=== PATIENT | female | born 1940 | race Caucasian/White ===

== ENCOUNTER → 2017-08-11 | Outpatient (CLI) | payer MEDICARE ==
[~2017-08-11] MED LIST: ALPR0.5T3; ASP81CT; ASPI-892 PO; ATEN100T45; ATEN25TA; ATN50T; ATOR20TA49 PO; ATOR40TA; C250T; CARV25TA PO; CARVEDILOL; CATHETER FLUSH 10 ML SYR IV PRN; CHLO25TA2 PO; CHOL10003 PO; CHOL200018 PO; CITA40TA19; CLN.2T; CLON-378 PO; CLOP75TA PO; CLPD75T; CTLP20T; ERGO400C; ESCT10T; FRSM40T PO; FURO40TA4; GARL1500 PO; HYDR1TAB PO; KCL10CCR; KCL20TCR; KLOR; LISI-552 PO; LISI10TA PO; LISI20TA; LOVA40TA2 PO; LSNP20T; LVST20T; MINOXIDIL; NF-MINO10T PO; NITRO; NTG SL; OMG1KC PO; POTA10CA43 PO; REGADENOSON 0.4 MG/5 ML SYR (LEXISCAN) IV ONE; [UNRECOGNIZED DRUG - OTHER]
[2017-08-11 08:02] VITALS: BP 231/102
--- NOTE | 2017-08-11 11:44 | STRESS TEST ---
DATE OF SERVICE: 08/11/2017 NUCLEAR MYOVIEW REPORT REFERRING PHYSICIAN: Dr. Jacobs. SUMMARY: The patient was injected with 10.40 mCi of technetium-99 Myoview and the resting images were obtained. With peak stress level, a 32.1 mCi of technetium-99 Myoview were injected and the stress images were acquired, the resting and stress images were reviewed and compared in the short axis, horizontal long axis, and vertical long axis views. Review of the images showed extracardiac attenuation with ischemia involving the basal to mid inferior wall and basal to mid anterior wall. SSS is 9, SDS 5, TID value is 0.96. On the gated images, the left ventricle appeared to be prominent with diffuse left ventricular hypokinesia, more pronounced at the inferior wall. Calculated ejection fraction of 39%. CONCLUSION: 1. Extracardiac attenuation with reversible ischemia involving the basal to mid inferior wall and basal to mid anterior wall. 2. Prominent left ventricle with mild diffuse left ventricular hypokinesia, more pronounced at the inferior wall. Calculated ejection fraction of 39%. Job ID: [id number] DocumentID: [id number] Dictated Date: 08/11/2017 10:17:12 Dope Edger Date: 08/11/2017 11:43:25 Dictated By: PRERNA RAPP MD
== END ==
LOC: CARD 06:33
PROVIDERS: ATTEND Internal Medicine
DX: I25.10 Atherosclerotic heart disease of native coronary artery without angina pectoris (principal); I10 Essential (primary) hypertension; R07.9 Chest pain, unspecified
CPT/HCPCS: 78452; 93017

== ENCOUNTER 2017-08-22 08:48 | Day surgery (SDC) | payer MEDICARE ==
[~2017-08-22] VITALS: Ht 152.4 cm; Wt 63.5 kg
[2017-08-22] VITALS (9 sets, daily range): BP systolic 143–181; BP diastolic 78–105
[~2017-08-22 08:48] MED LIST changes: -CATHETER FLUSH 10 ML SYR IV PRN; -REGADENOSON 0.4 MG/5 ML SYR (LEXISCAN) IV ONE
--- OUTSIDE RECORDS SUMMARY | 2017-08-22 08:52 | XMS REPORT | Continuity of Care Document ---
Author Author [facility] Organization [facility] Address Unknown Phone Unavailable Allergies Active Description Code Type Severity Reaction Onset Reported/Identified Relationship to Patient Clinical Status Yes NKANo Known Allergies NKA Miscellaneous Allergy Unknown N/A 08/29/2006 Medications There is no data. Problems Date Dx Coded Attending Type Code Diagnosis Diagnosed By 12/22/2009 Ot 442.3 12/22/2009 Ot 782.2 09/16/2010 Ot 729.5 PAIN IN LIMB 01/15/2011 Ot 272.4 HYPERLIPIDEMIA NEC/NOS 01/15/2011 Ot 276.8 HYPOPOTASSEMIA 01/15/2011 Ot 401.9 HYPERTENSION NOS 01/15/2011 Ot 414.00 CORON ATHEROSCLER NOS TYPE VESSEL, NATIV 01/15/2011 Ot 441.4 ABDOM AORTIC ANEURYSM 01/15/2011 Ot 780.57 UNSPECIFIED SLEEP APNEA 01/15/2011 Ot V45.81 AORTOCORONARY BYPASS 01/15/2011 Ot V58.63 LONG-TERM( CURRENT)USE OF ANTIPLATELET/AN 01/15/2011 Ot V58.66 LONG-TERM ( CURRENT) USE OF ASPIRIN 01/15/2011 Ot V58.69 OTH MED,LT, CURRENT USE 06/02/2011 Ot 272.4 HYPERLIPIDEMIA NEC/NOS 06/02/2011 Ot 401.9 HYPERTENSION NOS 06/02/2011 Ot 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 06/02/2011 Ot 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 06/02/2011 Ot 786.05 SHORTNESS OF BREATH 06/02/2011 Ot 786.50 CHEST PAIN NOS 06/02/2011 Ot V45.81 AORTOCORONARY BYPASS 06/02/2011 Ot V45.82 PERCUTANEOUS TRANSLUM CORON ANGIOPLASTY 07/25/2011 Ot V45.82 PERCUTANEOUS TRANSLUM CORON ANGIOPLASTY 07/25/2011 Ot V57.89 REHABILITATION PROC NEC 06/09/2015 Ot 272.4 06/09/2015 Ot 414.01 06/09/2015 Ot V58.69 06/09/2015 Ot 272.4 06/09/2015 Ot 414.01 06/09/2015 Ot V58.69 06/09/2015 Ot 414.01 06/09/2015 Ot 786.09 06/09/2015 Ot V58.63 06/09/2015 Ot V58.66 06/09/2015 Ot V58.69 06/09/2015 Ot 276.8 06/09/2015 Ot 401.9 06/09/2015 Ot 414.01 06/09/2015 Ot 401.9 06/09/2015 Ot V58.69 06/09/2015 Ot 272.4 06/09/2015 Ot 414.00 06/09/2015 Ot V58.69 06/09/2015 Ot 441.4 06/10/2015 JOSE MANUEL SANCHEZ MD Ot I10 ESSENTIAL (PRIMARY) HYPERTENSION 06/10/2015 JOSE MANUEL SANCHEZ MD Ot 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 06/10/2015 JOSE MANUEL SANCHEZ MD Ot I25.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 06/10/2015 JOSE MANUEL SANCHEZ MD Ot R07.9 CHEST PAIN, UNSPECIFIED 06/10/2015 JOSE MANUEL SANCHEZ MD Ot 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 06/10/2015 JOSE MANUEL SANCHEZ MD Ot Z87.891 PERSONAL HISTORY OF NICOTINE DEPENDENCE 06/10/2015 JOSE MANUEL SANCHEZ MD Ot Z95.1 PRESENCE OF AORTOCORONARY BYPASS GRAFT 06/10/2015 JOSE MANUEL SANCHEZ MD Ot Z98.61 CORONARY ANGIOPLASTY STATUS 08/13/2015 Ot 272.4 08/13/2015 Ot 414.01 08/13/2015 Ot V58.69 08/13/2015 Ot 414.01 08/13/2015 Ot 786.09 08/13/2015 Ot V58.63 08/13/2015 Ot V58.66 08/13/2015 Ot V58.69 08/13/2015 Ot 276.8 08/13/2015 Ot 401.9 08/13/2015 Ot 414.01 08/13/2015 Ot 401.9 08/13/2015 Ot V58.69 08/13/2015 Ot 272.4 08/13/2015 Ot 414.00 08/13/2015 Ot V58.69 08/13/2015 Ot 441.4 11/11/2015 Ot 272.4 HYPERLIPIDEMIA NEC/NOS 11/11/2015 Ot 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 11/11/2015 Ot V58.69 OTH MED,LT, CURRENT USE 11/11/2015 Ot 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 11/11/2015 Ot 786.09 RESPIRATORY ABNORM NEC 11/11/2015 Ot V58.63 LONG-TERM( CURRENT)USE OF ANTIPLATELET/AN 11/11/2015 Ot V58.66 LONG-TERM ( CURRENT) USE OF ASPIRIN 11/11/2015 Ot V58.69 OTH MED,LT, CURRENT USE 11/11/2015 Ot 276.8 HYPOPOTASSEMIA 11/11/2015 Ot 401.9 HYPERTENSION NOS 11/11/2015 Ot 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 11/11/2015 Ot 401.9 HYPERTENSION NOS 11/11/2015 Ot V58.69 OTH MED,LT, CURRENT USE 11/11/2015 Ot 272.4 HYPERLIPIDEMIA NEC/NOS 11/11/2015 Ot 414.00 CORON ATHEROSCLER NOS TYPE VESSEL, NATIV 11/11/2015 Ot V58.69 OTH MED,LT, CURRENT USE 11/11/2015 Ot 441.4 ABDOM AORTIC ANEURYSM 08/14/2017 LIAN WAN DO Ot I10 ESSENTIAL (PRIMARY) HYPERTENSION 08/14/2017 LAIN WAN DO Ot 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 Results There is no data. Encounters ACCT No. Visit Date/Time Discharge Status Pt. Type Provider Facility Loc./Unit Complaint [id number] 08/11/2017 06:33:00 08/11/2017 23:59:59 CLS Outpatient LIAN WAN DO [facility] CHEST PAIN, HYPERTENSION [id number] 06/08/2015 21:54:00 06/10/2015 11:45:00 DIS Outpatient LAURA CARTER, JOSE MANUEL [facility] [id number] 11/23/2011 07:42:00 Document Registration [id number] 07/25/2011 09:00:00 Document Registration [id number] 06/08/2011 08:08:00 Document Registration [id number] 06/01/2011 12:10:00 Document Registration [id number] 02/04/2011 07:55:00 Document Registration [id number] 01/27/2011 10:58:00 Document Registration [id number] 01/25/2011 08:52:00 Document Registration [id number] 01/14/2011 19:40:00 Document Registration [id number] 09/16/2010 07:41:00 Document Registration [id number] 07/27/2010 07:51:00 Document Registration [id number] 02/04/2010 08:17:00 Document Registration [id number] 12/22/2009 10:28:00 Document Registration
[2017-08-22] MEDS ORDERED: HEParin (CATH LAB) 2,000 ML IV ONE (09:00)
[2017-08-22] MEDS ORDERED: NS IV 1000 ML 1,000 ML ONE (09:00)
[2017-08-22] MEDS ORDERED: NS IV 1000 ML 1,000 ML IV SCH ×2 (09:04→12:06)
[2017-08-22 09:28] LABS: HEMOGLOBIN 15.6 G/DL (11.5-16.0); MEAN PLATELET VOLUME 11.6 FL (7.4-10.4); RED BLOOD COUNT 5.55 10^6/uL (4.35-5.85); RED CELL DISTRIBUTION WIDTH 14.1 % (10.0-14.5); WHITE BLOOD COUNT 9.1 10^3/uL (4.3-11.0)
[2017-08-22] MEDS ORDERED: ATOR10TA66 PO (09:40)
[2017-08-22] MEDS ORDERED: AMLO5TAB2 PO (09:40)
[2017-08-22] MEDS ORDERED: NF-MINO10T PO (09:40)
[2017-08-22 09:44] LABS: PROTHROMBIN TIME PATIENT 13.3 SEC (12.2-14.7)
[2017-08-22 09:48] LABS: ALANINE AMINOTRANSFERASE 11 U/L (0-55); ALBUMIN 4.6 GM/DL (3.2-4.5); ALKALINE PHOSPHATASE 97 U/L (40-136); BILIRUBIN,TOTAL 0.8 MG/DL (0.1-1.0); BUN/CREATININE RATIO 21; CALCIUM 9.7 MG/DL (8.5-10.1); CARBON DIOXIDE 24 MMOL/L (21-32); CHLORIDE 106 MMOL/L (98-107); CHOLESTEROL 190 MG/DL (< 200); CREATININE SERUM 0.73 MG/DL (0.60-1.30); GFR ESTIMATED > 60; GLUCOSE 103 MG/DL (70-105); HDL CHOLESTEROL 45 MG/DL (40-60); POTASSIUM 4.1 MMOL/L (3.6-5.0); SODIUM 140 MMOL/L (135-145); TOTAL PROTEIN 8.2 GM/DL (6.4-8.2); TRIGLYCERIDES 193 MG/DL (<150); VLDL CHOLESTEROL 39 MG/DL (5-40)
[2017-08-22] MEDS ORDERED: MIDAZOLAM 5 MG/5 ML (VERSED) VIAL ONE (10:42)
[2017-08-22] MEDS ORDERED: fentaNYL INJECTION 100 MCG/2 ML AMP ONE (10:42)
[2017-08-22] MEDS ORDERED: diphenhydrAMINE 50 MG/ML INJ (BENADRYL) ONE (10:42)
[2017-08-22] MEDS ORDERED: LIDOCAINE 1% INJ 50 ML (XYLOCAINE) VIAL ONE (10:44)
--- NOTE | 2017-08-22 11:26 | Cardiac Procedure Note-CS/ASA ---
Pre-Procedure Note Pre-Op Procedure Note H&P Reviewed The H&P was reviewed, patient examined and no changes noted. Date H&P Reviewed: Aug 22, 2017 Time H&P Reviewed: 11:25 Conscious Sedation Pre-Proced Time Reviewed: : ASA Class: 3 Airway Mallampati Classification: (ruby appropriate class) I. II. III, IV Lungs Heart ASA score ASA 1: a normal healthy patient ASA 2: a patient with a mild systemic disease (mid diabetes, controlled hypertension, obesity ASA 3: a patient with a severe systemic disease that limits activity (angina , COPD, prior Myocardial infarction) ASA 4: a patient with an incapacitating disease that is a constant threat to life (CHF, renal failure) ASA 5: a moribund patient not expected to survive 24 hrs. (ruptured aneurysm) ASA 6: a declared brain patient whose organs are being harvested. For emergent operations, add the letter E after the classification Grade 2 Sedation Plan: Analgesia, Amnesia, Plan communicated to team members, Discussed options with patient/fam, Discussed risks with patient/fam Note The patient is an appropriate candidate to undergo the planned procedure, sedation, and anesthesia. The patient immediately re-assessed prior to indication. AMARI FOSTER MD FACP FAC CCDS Aug 22, 2017 11:26
--- NOTE | 2017-08-22 12:08 | Discharge Inst-Cardiology ---
Discharge Inst-Cardiac Discharge Medications Continued Medications: Amlodipine Besylate (Amlodipine Besylate) 5 Mg Tablet 5 MG PO DAILY, TAB Aspirin (Low Dose Aspirin) 81 Mg Tablet.dr 81 MG PO HS Atorvastatin Calcium (Atorvastatin Calcium) 10 Mg Tablet 10 MG PO DAILY, TAB Lisinopril (Lisinopril) 20 Mg Tablet 20 MG PO HS Minoxidil (Minoxidil) 10 Mg Tab 10 MG PO BID, TAB Orders-Post D/C & Referrals Pneu Vac Indicated: Yes AMARI FOSTER MD FACP FACC CCDS Aug 22, 2017 12:08
--- NOTE | 2017-08-22 12:08 | Discharge Inst-Post CATH ---
Discharge Inst-CATH Post Cardiac Cath D/C Inst Follow Up/Plan F/u with Dr Macedo in 1-2 weeks CARDIAC CATH DISCHARGE INSTRUCTIONS *Hold Metformin for 48 hours post heart cath. ACTIVITY * Go Home directly and rest. * Limit activity of the leg (or wrist if it was used) for 7 days including aerobics, swimming, jogging, bicycling, etc. * Restrict stair-climbing for 7 days if possible, if not, climb up with your non -cath leg, then bring together on the same step. * Avoid lifting, pushing, pulling or excessive movement of the affected extremity for 7 days. * Customary sexual activity may be resumed after 2 days-use caution not to use a position that strains or causes pain to the affected extremity. * No driving for 24 hours. * NO SMOKING. * Avoid straining for bowel movements for 7 days. * Gentle walking on level ground is allowed. * Returning to work will depend on the type of procedure and the results. Your doctor will discuss this with you. CALL YOUR DOCTOR FOR ANY OF THE FOLLOWING: *If bleeding from the puncture site occurs- Apply gentle pressure to site with clean cloth and call your doctor or EMS. * If a knot or lump forms under the skin, increases in size, or causes pain. * If bruising appears to be worsening or moving further down your leg instead of disappearing. * Temperature above 101 F. CARE OF YOUR GROIN INCISION; * Bruising or purple discoloration of the skin near the puncture site is common. * You may shower only, no bathtub bathing for 5 days. Be careful to avoid slipping as your leg may feel stiff. * If a closure device was used on your femoral artery, please see the attached guide regarding care of the device and your leg. * REMOVE the dressing from your groin the next day after your procedure in the shower. CARE OF YOUR WRIST INCISION; * Bruising or purple discoloration of the skin near the puncture site is common. * You may shower. * DO NOT submerge wrist. * Remove dressing in 24 hours. AMARI MACEDO MD [facility] CCDS Aug 22, 2017 12:08
[2017-08-22] MEDS ORDERED: PATIENT MAY USE OWN MEDS, ALL PO SCH (12:15)
--- NOTE | 2017-08-22 12:59 | CARDIAC CATHETERIZATION ---
DATE OF SERVICE: 08/22/2017 CARDIAC CATHETERIZATION REPORT HISTORY: The patient is a 77-year-old lady with a history of coronary artery bypass surgery, who has had a recent stress test, which was reported as being abnormal. Cardiac catheterization was planned today. PROCEDURE: We brought her to the cardiac catheterization laboratory in a fasting state. Right groin was prepped and draped in usual sterile fashion. 1% Lidocaine was used as local anesthesia. Modified Seldinger technique was used to advance a 5-Estonian sheath to the right femoral artery. We then tried to advance a catheter over a wire to the heart, but the abdominal aorta is very tortuous and the wire was catching at various different spots within the abdominal aorta. The patient is known to have had thoracoabdominal aneurysm repair. We felt that it would be appropriate to hold off on the cardiac catheterization procedure until a CT angiogram of the thoracoabdominal aorta has been performed for us to know what the safest route to the cardiac catheterization would be. Accordingly, we did not make any attempt to advance the catheters (because of tortuosity and difficulty with wire advancement). We carried out angiography of the right femoral artery through the sheath. Mynx was used to achieve hemostasis. She tolerated the procedure well. Job ID: [id number] DocumentID: [id number] Dictated Date: 08/22/2017 11:47:01 Air Pollution Compliance Inspector Date: 08/22/2017 12:58:46 Dictated By: AMARI FOSTER MD, MA, FACP, FACC,
== END 2017-08-22 14:35 | disposition home or self-care (01) ==
LOC: CATH 08:48 → SURG 12:00 → CATH 14:35
PROVIDERS: ATTEND Internal Medicine Cardiovascular Disease
DX: I25.10 Atherosclerotic heart disease of native coronary artery without angina pectoris (principal); R94.39 Abnormal result of other cardiovascular function study; R06.02 Shortness of breath; I77.1 Stricture of artery; I10 Essential (primary) hypertension; E78.5 Hyperlipidemia, unspecified; I73.9 Peripheral vascular disease, unspecified; Z79.82 Long term (current) use of aspirin; Z79.899 Other long term (current) drug therapy; Z95.1 Presence of aortocoronary bypass graft
CPT/HCPCS: 36415; 80053; 80061; 85027; 85610; 85730; 87081; 93005; 93452

== ENCOUNTER 2020-07-08 12:30 | Outpatient (RCR) | payer MEDICARE ==
[~2020-07-08 12:30] MED LIST changes: +AMLO-250 PO; +ATOR10TA66 PO; -LISI-552 PO; +LISI20TA26 PO
[2020-07-20] MEDS ORDERED: ATOR20TA66 PO (11:37)
[2020-07-20] MEDS ORDERED: OMEG-179 PO (11:37)
[2020-07-20] MEDS ORDERED: ASPI325T32 PO (11:37)
[2020-07-20] MEDS ORDERED: METO50TA7 PO (11:37)
[2020-07-20] MEDS ORDERED: CHOL10007 PO (11:37)
[2020-07-22] MEDS ORDERED: MTP100TCR PO (14:04)
[2020-07-22] MEDS ORDERED: APIX5TAB PO (14:04)
[2020-07-23] MEDS ORDERED: APIX5TAB PO (09:50)
== END 2020-10-06 | disposition home or self-care (01) ==
LOC: CARD 12:30
PROVIDERS: ATTEND Internal Medicine
DX: R00.2 Palpitations (principal)
CPT/HCPCS: 93225; 93226

== ENCOUNTER 2020-07-19 22:01 | Inpatient (IN) | payer MEDICARE ==
[~2020-07-19] VITALS: Ht 149.9 cm; Wt 59.9 kg
[2020-07-19 22:15] LABS: BASOPHILS # (AUTO) 0.1 10^3/uL (0.0-0.1); BASOPHILS % (AUTO) 1 % (0-10); EOSINOPHILS # (AUTO) 0.2 10^3/uL (0.0-0.3); EOSINOPHILS % (AUTO) 2 % (0-10); HEMATOCRIT 43 % (35-52); HEMOGLOBIN 13.8 g/dL (11.5-16.0); LYMPHOCYTES # (AUTO) 1.7 10^3/uL (1.0-4.0); LYMPHOCYTES % (AUTO) 17 % (12-44); MEAN CORPUSCULAR HEMOGLOBIN 28 pg (25-34); MEAN CORPUSCULAR HGB CONC 32 g/dL (32-36); MEAN CORPUSCULAR VOLUME 86 fL (80-99); MONOCYTES # (AUTO) 0.8 10^3/uL (0.0-1.0); MONOCYTES % (AUTO) 8 % (0-12); NEUTROPHILS % (AUTO) 71 % (42-75); PLATELET COUNT 201 10^3/uL (130-400); WHITE BLOOD COUNT 9.8 10^3/uL (4.3-11.0)
[2020-07-19] MEDS ORDERED: dilTIAZem DRIP PRE-MIX 125 ML IV SCH (22:15)
[2020-07-19 22:27] LABS: PROTHROMBIN TIME PATIENT 13.3 SEC (12.2-14.7)
[2020-07-19 22:37] LABS: ALANINE AMINOTRANSFERASE 32 U/L (0-55); ALBUMIN 3.9 GM/DL (3.2-4.5); ALKALINE PHOSPHATASE 106 U/L (40-136); BILIRUBIN,TOTAL 0.7 MG/DL (0.1-1.0); BUN/CREATININE RATIO 15; CALCIUM 8.8 MG/DL (8.5-10.1); CARBON DIOXIDE 22 MMOL/L (21-32); CHLORIDE 104 MMOL/L (98-107); CREATININE SERUM 0.84 MG/DL (0.60-1.30); GFR ESTIMATED > 60; GLUCOSE 144 MG/DL (70-105); POTASSIUM 3.5 MMOL/L (3.6-5.0); SODIUM 140 MMOL/L (135-145)
[2020-07-19 22:57] LABS: TSH (THYROID ANALYZER) 1.61 UIU/ML (0.35-4.94)
--- NOTE | 2020-07-19 23:25 | ED Cardiac General ---
History of Present Illness General Chief Complaint: Cardiac/General Problems Stated Complaint: AFIB;RVR Nursing Triage Note: Pt arrived via EMS after being awaken by her heart racing. EMS gave 10 mg of Cardizem in field with improvement. Pt denies chest pain upon arrival at ER. Current HR is 130 Source: patient Exam Limitations: no limitations History of Present Illness Date Seen by Provider: Jul 19, 2020 Time Seen by Provider: 22:05 Initial Comments [id number] woman presents to the emergency room with complaints of racing heart and chest pressure that started around 21:00. She reports a history of 1 prior episode of atrial fibrillation. She is on metoprolol but she is not anticoagulated. 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 She reports poor appetite over the past week and feeling fatigued earlier today. She also has history of coronary artery disease status post CABG. EMS administered Cardizem 10 mg IV with good response to heart rate. Allergies and Home Medications Allergies Coded Allergies: NKANo Known Allergies (Verified Allergy, Unknown, 08/29/06) Home Medications Amlodipine Besylate 5 Mg Tablet, 5 MG PO DAILY, (Reported) Aspirin 81 Mg Tablet.dr, 81 MG PO HS, (Reported) Atorvastatin Calcium 10 Mg Tablet, 10 MG PO DAILY, (Reported) Lisinopril 20 Mg Tablet, 20 MG PO HS, (Reported) Minoxidil 10 Mg Tab, 10 MG PO BID, (Reported) Patient Home Medication List Home Medication List Reviewed: Yes Review of Systems Review of Systems Constitutional: see HPI EENTM: No Symptoms Reported Respiratory: No Symptoms Reported Cardiovascular: See HPI Gastrointestinal: No Symptoms Reported Genitourinary: No Symptoms Reported Musculoskeletal: no symptoms reported Skin: no symptoms reported Psychiatric/Neurological: No Symptoms Reported Endocrine: No Symptoms Reported Hematologic/Lymphatic: No Symptoms Reported Past Iqmcrdm-[id number]-Wukhko Hx Past Med/Social Hx: Reviewed Nursing Past Med/Soc Hx Patient Social History Alcohol Use: Denies Use 2nd Hand Smoke Exposure: No Recent Infectious Disease Expo: No Recent Hopitalizations: Yes Immunizations Up To Date Tetanus Booster (TDap): More than 5yrs PED Vaccines UTD: No Date of Pneumonia Vaccine: Jun 01, 2006 Seasonal Allergies Seasonal Allergies: No Past Medical History Surgeries: Yes (AAA REPAIR; LEFT LEG ANURYSM REPAIR; CARDIAC STENTS X 5;CABG) Abdominal, Cardiac, CABG, Coronary Stent, Tonsillectomy, Vascular Surgery Respiratory: Yes Sleep Apnea Currently Using CPAP: No Currently Using BIPAP: No Cardiac: Yes Coronary Artery Disease, Heart Attack, High Cholesterol, Hypertension, Peripheral Vascular Neurological: No Reproductive Disorders: No 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 0.0oz. 63.061544bd; 28.00 BMI Method:Stated General Appearance: No Apparent Distress, WD/WN HEENT: PERRL/EOMI, Normal ENT Inspection Neck: Normal Inspection; No JVD Respiratory: Lungs Clear, Normal Breath Sounds, No Accessory Muscle Use Cardiovascular: No Edema, No Murmur, Irregularly Irregular Gastrointestinal: Normal Bowel Sounds, Non Tender, Soft Extremity: Normal Inspection, No Pedal Edema Neurologic/Psychiatric: Alert, Oriented x3, No Motor/Sensory Deficits, Normal Mood/Affect, concession supervisor II-XII Norm as Tested Skin: Normal Color, Warm/Dry Progress/Results/Core Measures Results/Orders Lab Results Laboratory Tests Test 07/19/20 21:08 Range/Units White Blood Count 9.8 4.3-11.0 10^3/uL Red Blood Count 4.94 3.80-5.11 10^6/uL Hemoglobin 13.8 11.5-16.0 g/dL Hematocrit 43 35-52 % Mean Corpuscular Volume 86 80-99 fL Mean Corpuscular Hemoglobin 28 25-34 pg Mean Corpuscular Hemoglobin Concent 32 32-36 g/dL Red Cell Distribution Width 13.1 10.0-14.5 % Platelet Count 201 130-400 10^3/uL Mean Platelet Volume 12.0 9.0-12.2 fL Immature Granulocyte % (Auto) 0 % Neutrophils (%) (Auto) 71 42-75 % Lymphocytes (%) (Auto) 17 12-44 % Monocytes (%) (Auto) 8 0-12 % Eosinophils (%) (Auto) 2 0-10 % Basophils (%) (Auto) 1 0-10 % Neutrophils # (Auto) 7.0 1.8-7.8 10^3/uL Lymphocytes # (Auto) 1.7 1.0-4.0 10^3/uL Monocytes # (Auto) 0.8 0.0-1.0 10^3/uL Eosinophils # (Auto) 0.2 0.0-0.3 10^3/uL Basophils # (Auto) 0.1 0.0-0.1 10^3/uL Immature Granulocyte # (Auto) 0.0 0.0-0.1 10^3/uL Prothrombin Time 13.3 12.2-14.7 SEC INR Comment 1.0 0.8-1.4 Activated Partial Thromboplast Time 29 24-35 SEC Sodium Level 140 135-145 MMOL/L Potassium Level 3.5 L 3.6-5.0 MMOL/L Chloride Level 104 98-107 MMOL/L Carbon Dioxide Level 22 21-32 MMOL/L Anion Gap 14 5-14 MMOL/L Blood Urea Nitrogen 13 7-18 MG/DL Creatinine 0.84 0.60-1.30 MG/DL Estimat Glomerular Filtration Rate > 60 BUN/Creatinine Ratio 15 Glucose Level 144 H 70-105 MG/DL Calcium Level 8.8 8.5-10.1 MG/DL Corrected Calcium 8.9 8.5-10.1 MG/DL Magnesium Level 2.0 1.6-2.4 MG/DL Total Bilirubin 0.7 0.1-1.0 MG/DL Aspartate Amino Transf (AST/SGOT) 47 H 5-34 U/L Alanine Aminotransferase (ALT/SGPT) 32 0-55 U/L Alkaline Phosphatase 106 40-136 U/L Myoglobin 33.5 10.0-92.0 NG/ML Troponin I < 0.028 <0.028 NG/ML Total Protein 7.0 6.4-8.2 GM/DL Albumin 3.9 3.2-4.5 GM/DL TSH [place] Testing 1.61 0.35-4.94 UIU/ML My Orders Orders - INEZ LLOYD MD Cbc With Automated Diff (07/19/20 22:06) Magnesium (07/19/20 22:06) Chest 1 View, Ap/Pa Only (07/19/20 22:06) Ekg Tracing (07/19/20 22:06) Comprehensive Metabolic Panel (07/19/20 22:06) Myoglobin Serum (07/19/20 22:06) Protime With Inr (07/19/20 22:06) Partial Thromboplastin Time (07/19/20 22:06) O2 (07/19/20 22:06) Monitor-Rhythm Ecg Trace Only (07/19/20 22:06) Ed Iv/Invasive Line Start (07/19/20 22:06) Troponin I (07/19/20 22:06) Thyroid Analyzer (07/19/20 22:06) Diltiazem Drip Pre-Mix (Cardizem Drip Pr (07/19/20 22:15) Enoxaparin Injection (Lovenox Injection) (07/19/20 23:30) Medications Given in ED Current Medications Medications Dose Ordered Sig/Preeti Route Start Time Stop Time Status Last Admin Dose Admin Enoxaparin Sodium 60 mg ONCE ONCE SC 07/19/20 23:30 07/19/20 23:31 DC 07/19/20 23:33 60 MG Vital Signs/I&O 07/19/20 07/19/20 22:06 22:18 Temp 36.4 Pulse 134 Resp 20 B/P (MAP) 150/118 (129) Pulse Ox 95 96 O2 Delivery Room Air Blood Pressure Mean: 129 Progress Progress Note : Time: 07:32 Progress Note Patient was started on a Cardizem drip with mild improvement in her heart rate. She was feeling better on Cardizem. Lovenox was given for initial stroke prophylaxis. Initial ECG Impression Date: Jul 19, 2020 Initial ECG Impression Time: 22:08 Initial ECG Rate: 141 Initial ECG Rhythm: A Fib/Flutter Initial ECG Impression: Atrial Fibrillation w/RVR Comment Atrial fibrillation with RVR. No ischemic ST elevation or depression. Diagnostic Imaging Diagonstic Imaging: Xray Plain Films/CT/US/NM/MRI: chest Comments Chest x-ray viewed by me and compared with prior. Report not yet available. No acute changes appreciated. Departure Communication (Admissions) Time/Spoke to Admitting Phy: 23:15 Dr. White Time/Spoke to Consulting Phy: 23:10 Dr. Morales Impression Primary Impression: Atrial fibrillation with RVR Disposition: ADMITTED INPATIENT Condition: Improved Admissions Decision to Admit Reason: Admit from ER (General) Decision to Admit/Date: Jul 19, 2020 Time/Decision to Admit Time: 22:05 Departure-Patient Inst. Referrals: LIAN WAN DO (PCP/Family) Primary Care Physician Copy Copies To 1: LIAN WAN JOSHUA T MD Jul 19, 2020 23:25
[2020-07-19] MEDS ORDERED: ENOXAPARIN 60 MG/0.6 ML (LOVENOX) SYR SC ONE (23:30)
[2020-07-20] MEDS ORDERED: dilTIAZem DRIP PRE-MIX 125 ML IV SCH (00:30)
[2020-07-20 04:12] LABS: BASOPHILS # (AUTO) 0.1 10^3/uL (0.0-0.1); BASOPHILS % (AUTO) 1 % (0-10); EOSINOPHILS # (AUTO) 0.1 10^3/uL (0.0-0.3); EOSINOPHILS % (AUTO) 1 % (0-10); HEMATOCRIT 41 % (35-52); HEMOGLOBIN 13.5 g/dL (11.5-16.0); LYMPHOCYTES # (AUTO) 1.5 10^3/uL (1.0-4.0); LYMPHOCYTES % (AUTO) 16 % (12-44); MEAN CORPUSCULAR HEMOGLOBIN 28 pg (25-34); MEAN CORPUSCULAR HGB CONC 33 g/dL (32-36); MEAN CORPUSCULAR VOLUME 85 fL (80-99); MEAN PLATELET VOLUME 12.1 fL (9.0-12.2); MONOCYTES # (AUTO) 0.8 10^3/uL (0.0-1.0); MONOCYTES % (AUTO) 8 % (0-12); NEUTROPHILS % (AUTO) 74 % (42-75); PLATELET COUNT 197 10^3/uL (130-400); WHITE BLOOD COUNT 9.5 10^3/uL (4.3-11.0)
[2020-07-20 04:37] LABS: BUN/CREATININE RATIO 13; CALCIUM 8.5 MG/DL (8.5-10.1); CARBON DIOXIDE 20 MMOL/L (21-32); CHLORIDE 107 MMOL/L (98-107); CHOLESTEROL 106 MG/DL (< 200); CREATININE SERUM 0.75 MG/DL (0.60-1.30); GFR ESTIMATED > 60; GLUCOSE 121 MG/DL (70-105); HDL CHOLESTEROL 44 MG/DL (40-60); PHOSPHORUS 3.6 MG/DL (2.3-4.7); SODIUM 140 MMOL/L (135-145); TRIGLYCERIDES 87 MG/DL (<150); VLDL CHOLESTEROL 17 MG/DL (5-40)
--- NOTE | 2020-07-20 06:38 | Diagnostic Imaging Report ---
INDICATION: Tachycardia, coronary artery disease, chest pain COMPARISON: 06/08/2015 FINDINGS: Single view of the chest demonstrates cardiac enlargement with mild central vascular congestion. There is no pneumothorax or effusion. Osseous structures are stable. Sternal wires are midline. IMPRESSION: Cardiac enlargement with mild central vascular congestion. Dictated by: Dictated on workstation # [id number]
[2020-07-20] MEDS: ASPIRIN E.C. 81 MG (ECOTRIN) TAB PO SCH (07:48)
[2020-07-20] MEDS: lisINopril 20 MG (PRINIVIL) TABLET PO SCH (07:48)
--- NOTE | 2020-07-20 09:50 | Consultation-Cardiology ---
HPI-Cardiology Cardiology Consultation Date of Consultation 07/20/20 Date of Admission Time Seen by Provider: 09:45 Indication: atrial fibrillation HPI 79-year-old lady with extensive cardiac history, history of CABG, thoracic aortic aneurysm repair, reported episode of atrial fibrillation and feeling palpitation and rapid heartrate, given to the emergency room and noted to be in atrial fibrillation with rapid ventricular response, she was started on Cardizem drip, heart rate is better at this time. Denied any chest pain. No syncope. Heart rate is better controlled at this time Home Medications & Allergies Allergies: Coded Allergies: NKANo Known Allergies (Verified Allergy, Unknown, 08/29/06) Home Medication List Reviewed: Yes EOI-Qykslw-Gpgzhg Hx Patient Social History Recreational Drug Use: No 2nd Hand Smoke Exposure: No Recent Hopitalizations: Yes Have you traveled recently?: No Alcohol Use?: No Immunizations Up To Date Tetanus Booster (TDap): More than 5yrs Date of Pneumonia Vaccine: Jun 01, 2006 Past Medical History Discussed below Family Medical History Family History: FHx: stroke 19 FATHER 19 MOTHER Review of Systems-General Review of Systems Constitutional: see HPI, malaise EENTM: see HPI, no symptoms reported Respiratory: see HPI; No cough; dyspnea on exertion; No hemoptysis, No orthopnea, No phlegm, No short of breath, No stridor, No wheezing, No other Cardiovascular: see HPI; No chest pain, No edema, No Hx of Intervention; palpitations; No syncope, No vascular heart diseas, No other Gastrointestinal: no symptoms reported, see HPI Genitourinary: no symptoms reported, see HPI Musculoskeletal: no symptoms reported, see HPI Skin: no symptoms reported, see HPI Psychiatric/Neurological: No Symptoms Reported, See HPI Reviewed Test Results Reviewed Test Results Lab Laboratory Tests Test 07/19/20 21:08 07/20/20 03:58 Range/Units White Blood Count 9.8 9.5 4.3-11.0 10^3/uL Red Blood Count 4.94 4.85 3.80-5.11 10^6/uL Hemoglobin 13.8 13.5 11.5-16.0 g/dL Hematocrit 43 41 35-52 % Mean Corpuscular Volume 86 85 80-99 fL Mean Corpuscular Hemoglobin 28 28 25-34 pg Mean Corpuscular Hemoglobin Concent 32 33 32-36 g/dL Red Cell Distribution Width 13.1 13.2 10.0-14.5 % Platelet Count 201 197 130-400 10^3/uL Mean Platelet Volume 12.0 12.1 9.0-12.2 fL Immature Granulocyte % (Auto) 0 0 % Neutrophils (%) (Auto) 71 74 42-75 % Lymphocytes (%) (Auto) 17 16 12-44 % Monocytes (%) (Auto) 8 8 0-12 % Eosinophils (%) (Auto) 2 1 0-10 % Basophils (%) (Auto) 1 1 0-10 % Neutrophils # (Auto) 7.0 7.0 1.8-7.8 10^3/uL Lymphocytes # (Auto) 1.7 1.5 1.0-4.0 10^3/uL Monocytes # (Auto) 0.8 0.8 0.0-1.0 10^3/uL Eosinophils # (Auto) 0.2 0.1 0.0-0.3 10^3/uL Basophils # (Auto) 0.1 0.1 0.0-0.1 10^3/uL Immature Granulocyte # (Auto) 0.0 0.0 0.0-0.1 10^3/uL Prothrombin Time 13.3 12.2-14.7 SEC INR Comment 1.0 0.8-1.4 Activated Partial Thromboplast Time 29 24-35 SEC Sodium Level 140 140 135-145 MMOL/L Potassium Level 3.5 L 4.0 3.6-5.0 MMOL/L Chloride Level 104 107 98-107 MMOL/L Carbon Dioxide Level 22 20 L 21-32 MMOL/L Anion Gap 14 13 5-14 MMOL/L Blood Urea Nitrogen 13 10 7-18 MG/DL Creatinine 0.84 0.75 0.60-1.30 MG/DL Estimat Glomerular Filtration Rate > 60 > 60 BUN/Creatinine Ratio 15 13 Glucose Level 144 H 121 H 70-105 MG/DL Calcium Level 8.8 8.5 8.5-10.1 MG/DL Corrected Calcium 8.9 8.5-10.1 MG/DL Magnesium Level 2.0 2.0 1.6-2.4 MG/DL Total Bilirubin 0.7 0.1-1.0 MG/DL Aspartate Amino Transf (AST/SGOT) 47 H 5-34 U/L Alanine Aminotransferase (ALT/SGPT) 32 0-55 U/L Alkaline Phosphatase 106 40-136 U/L Myoglobin 33.5 10.0-92.0 NG/ML Troponin I < 0.028 0.050 H <0.028 NG/ML Total Protein 7.0 6.4-8.2 GM/DL Albumin 3.9 3.2-4.5 GM/DL TSH [place] [facility] Testing 1.61 0.35-4.94 UIU/ML Phosphorus Level 3.6 2.3-4.7 MG/DL Triglycerides Level 87 <150 MG/DL Cholesterol Level 106 < 200 MG/DL LDL Cholesterol Direct 33 1-129 MG/DL VLDL Cholesterol 17 5-40 MG/DL HDL Cholesterol 44 40-60 MG/DL Physical Exam Physical Exam Vital Signs Vital Signs - First Documented 07/19/20 07/19/20 22:06 22:18 Temp 36.4 Pulse 134 Resp 20 B/P (MAP) 150/118 (129) Pulse Ox 95 O2 Delivery Room Air Capillary Refill : Less Than 3 Seconds Height, Weight, BMI Height: 5'0.00" Weight: 140lbs. 0.0oz. 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 [id number] score of 5, yearly risk of stroke without oral anticoagulation is 6.7 percent. Starting on Eliquis Mild elevation in troponin, probably secondary to tachycardia, she has underlying extensive coronary artery disease not amendable to intervention Coronary artery disease history of CABG done in 2000, had a cardiac catheterization in June 2015 showed the LAD has 6070 percent stenosis, occluded at the midportion, the distal LAD is protected by RICE that is patent, high diagonal branch stent stent known to be Promus 2.2 x 12 mm placed in 2011, the circumflex has a patent stent in the proximal portion, RCA is occluded proximally protected by patent vein graft to the distal right coronary artery. Patient had an abnormal stress test in August 2017, attempt for cardiac catheterization has failed due to the extensive disease in her thoracic and abdominal aorta. Medical therapy is recommended History of thoracic and abdominal aneurysm, status post repair done by Dr. Emery in [place] in 2012. Peripheral arterial disease, left lower extremity aneurysm, following with heart and vascular care. Hypertension, restart home medication monitor Hyperlipidemia, monitor lipids History of carotid stenosis followed by Dr. Emery History of intermittent hypokalemia PRERNA RAPP MD Jul 20, 2020 09:50
[2020-07-20] MEDS: APIXABAN 5 MG (ELIQUIS) TABLET PO SCH ×2 (10:31→20:12)
[2020-07-20] MEDS: meTOprolol TARTRATE 25 MG (LOPRESSOR) TABLET PO SCH ×2 (10:31→20:12)
[2020-07-20] MEDS ORDERED: ENOXAPARIN 60 MG/0.6 ML (LOVENOX) SYR SC SCH (11:00)
[2020-07-20] MEDS ORDERED: ATOR20TA66 PO (11:37)
[2020-07-20] MEDS ORDERED: OMEG-179 PO (11:37)
[2020-07-20] MEDS ORDERED: METO50TA7 PO (11:37)
[2020-07-20] MEDS ORDERED: CHOL10007 PO (11:37)
[2020-07-20] MEDS ORDERED: ASPI325T32 PO (11:37)
--- NOTE | 2020-07-20 13:50 | History & Physical-Hospitalist ---
History of Present Illness HPI/Chief Complaint Angelica Gill is a 79 year old female with PMH HTN, HLD, CAD s/p CABG, who presented with chest pain. She reports that she felt like her heart was going to beat out of her chest. She denies any radiation, including to her neck, jaw, and arm. She denies any associated dyspnea, nausea, vomiting, or diaphoresis. She reports waking up in the past week and feeling like she was running because her heart was beating so fast. She has not had any fevers or chills. She denies cough. She denies abdominal pain and diarrhea. She denies dysuria. Source: patient Exam Limitations: no limitations Date Seen 07/20/20 Time Seen by a Provider: 09:55 Attending Physician Christie White MD PCP Sorin Jacobs DO Referring Physician Date of Admission Jul 19, 2020 at 23:35 Home Medications & Allergies Home Medications Reviewed patient Home Medication Reconciliation performed by pharmacy medication reconciliations digital cartographic technician and/or nursing. Patients Allergies have been reviewed. Allergies Allergies Coded Allergies NKANo Known Allergies (Verified Allergy, Unknown, 08/29/06) Past Agecxfp-Jbmszk-Yizwmp Hx Past Med/Social Hx: Reviewed Nursing Past Med/Soc Hx Patient Social History Alcohol Use: Denies Use Recreational Drug Use: No 2nd Hand Smoke Exposure: No Recent Foreign Travel: No Contact w/other who traveled: No Recent Hopitalizations: Yes Recent Infectious Disease Expo: No Immunizations Up To Date Tetanus Booster (TDap): More than 5yrs Pediatric: No Date of Pneumonia Vaccine: Jun 01, 2006 Seasonal Allergies Seasonal Allergies: No Past Medical History Surgeries: Abdominal, Cardiac, CABG, Coronary Stent, Tonsillectomy, Vascular Surgery Currently Using CPAP: No Currently Using BIPAP: No Cardiac: Coronary Artery Disease, Heart Attack, High Cholesterol, Hypertension, Peripheral Vascular Reproductive: No Menopausal Psychosocial: Anxiety History of Blood Disorders: No Adverse Reaction to Blood Patel: No Family History FHx: stroke 19 FATHER 19 MOTHER Review of Systems Constitutional: no symptoms reported EENTM: no symptoms reported Respiratory: no symptoms reported Cardiovascular: chest pain, palpitations Gastrointestinal: no symptoms reported Genitourinary: no symptoms reported Musculoskeletal: no symptoms reported Skin: no symptoms reported Psychiatric/Neurological: No Symptoms Reported Physical Exam Physical Exam Vital Signs Vital Signs - First Documented 07/19/20 07/19/20 22:06 22:18 Temp 36.4 Pulse 134 Resp 20 B/P (MAP) 150/118 (129) Pulse Ox 95 O2 Delivery Room Air Capillary Refill : Less Than 3 Seconds Height, Weight, BMI Height: 5'0.00" Weight: 140lbs. 0.0oz. 63.403575ed; 28.79 BMI Method:Stated General Appearance: No Apparent Distress, WD/WN HEENT: PERRL/EOMI, Pharynx Normal Neck: Normal Inspection, Supple Respiratory: Lungs Clear, Normal Breath Sounds, No Respiratory Distress Cardiovascular: Irregularly Irregular, Tachycardia Gastrointestinal: Normal Bowel Sounds, Non Tender, Soft Extremity: Normal Inspection, Non Tender, No Pedal Edema Neurologic/Psychiatric: Alert, Oriented x3, No Motor/Sensory Deficits, Normal Mood/Affect Skin: Normal Color, Warm/Dry Results Results/Procedures Labs Laboratory Tests 07/19/20 21:08 07/20/20 03:58 Patient resulted labs reviewed. Imaging: Reviewed Imaging Report Assessment/Plan Admission Diagnosis Atrial fibrillation with rapid ventricular response Admission Status: Inpatient Order (span 2 midnights) Reason for Inpatient Admission: AFib with RVR requiring IV medications Assessment and Plan Atrial fibrillation with rapid ventricular response Cardiology consulted, appreciate assistance Started on IV Cardizem Transitioning to oral Cardizem Started on Lovenox Transitioning to Eliquis Elevated troponin Mildly elevated, likely due to tachycardia HTN HLD CAD Continue home meds DVT prophylaxis: already receiving therapeutic anticoagulation Diagnosis/Problems Diagnosis/Problems (1) Atrial fibrillation with RVR Status: Acute YUMIKO SY MD Jul 20, 2020 13:50
[2020-07-20] MEDS ORDERED: DIGOXIN 0.25 MG/ML (LANOXIN) 2 ML AMP IV NR (14:30)
[2020-07-20] MEDS ORDERED: AMIODARONE INJECTION 150 MG in D5W 100 ML IVPB 100 ML IV NR (14:30)
[2020-07-20] MEDS: dilTIAZem DRIP PRE-MIX 125 ML IV SCH (14:33)
[2020-07-20] MEDS: AMIODARONE INJECTION 450 MG in D5W IV SOLUTION (EXCEL) 250 ML IV SCH ×2 (15:09→23:10)
[2020-07-20] MEDS ORDERED: lisINopril 20 MG (PRINIVIL) TABLET PO ONE (16:15)
[2020-07-21] MEDS ORDERED: hydrALAZINE (APESOLINE) 20 MG/ML VIAL ONE (02:14)
[2020-07-21] MEDS ORDERED: hydrALAZINE (APESOLINE) 20 MG/ML VIAL IV ONE (02:30)
[2020-07-21 03:27] LABS: BASOPHILS # (AUTO) 0.1 10^3/uL (0.0-0.1); BASOPHILS % (AUTO) 1 % (0-10); EOSINOPHILS # (AUTO) 0.1 10^3/uL (0.0-0.3); EOSINOPHILS % (AUTO) 2 % (0-10); HEMATOCRIT 44 % (35-52); HEMOGLOBIN 14.5 g/dL (11.5-16.0); LYMPHOCYTES # (AUTO) 1.2 10^3/uL (1.0-4.0); LYMPHOCYTES % (AUTO) 13 % (12-44); MEAN CORPUSCULAR HEMOGLOBIN 28 pg (25-34); MEAN CORPUSCULAR HGB CONC 33 g/dL (32-36); MEAN CORPUSCULAR VOLUME 85 fL (80-99); MEAN PLATELET VOLUME 12.2 fL (9.0-12.2); MONOCYTES # (AUTO) 0.7 10^3/uL (0.0-1.0); MONOCYTES % (AUTO) 7 % (0-12); NEUTROPHILS # (AUTO) 6.8 10^3/uL (1.8-7.8); NEUTROPHILS % (AUTO) 77 % (42-75); PLATELET COUNT 202 10^3/uL (130-400); WHITE BLOOD COUNT 8.9 10^3/uL (4.3-11.0)
[2020-07-21 03:46] LABS: BUN/CREATININE RATIO 9; CALCIUM 9.1 MG/DL (8.5-10.1); CARBON DIOXIDE 23 MMOL/L (21-32); CHLORIDE 103 MMOL/L (98-107); CREATININE SERUM 0.79 MG/DL (0.60-1.30); GFR ESTIMATED > 60; GLUCOSE 128 MG/DL (70-105); PHOSPHORUS 3.2 MG/DL (2.3-4.7); POTASSIUM 3.7 MMOL/L (3.6-5.0); SODIUM 139 MMOL/L (135-145)
[2020-07-21] MEDS ORDERED: SOD POLYSTERENE 15 GM/60 ML (KAYEXALATE) UNIT DOSE PO ONE (06:30)
[2020-07-21] MEDS: ASPIRIN E.C. 81 MG (ECOTRIN) TAB PO SCH (08:08)
[2020-07-21] MEDS: lisINopril 20 MG (PRINIVIL) TABLET PO SCH (08:09)
[2020-07-21] MEDS: meTOprolol TARTRATE 25 MG (LOPRESSOR) TABLET PO SCH ×2 (08:09→19:58)
[2020-07-21] MEDS: APIXABAN 5 MG (ELIQUIS) TABLET PO SCH ×2 (08:09→19:57)
--- NOTE | 2020-07-21 08:12 | Diagnostic Imaging Report ---
INDICATION: Atrial fibrillation with rapid ventricular response. TECHNIQUE: Single view chest 3:13 AM. CORRELATION STUDY: 07/19/2020 FINDINGS: Poststernotomy and coronary artery bypass changes. Cardiac enlargement. Vasculature is improved relatively normal at followup. Calcification of the aortic arch. Lung martinez overall generally clear. No infiltrate. IMPRESSION: 1. Cardiac enlargement. Overall severity of the congestion has improved and vasculature near normal at followup. Dictated by: Dictated on workstation # [id number]
--- NOTE | 2020-07-21 10:46 | Cardiology Progress Note ---
Subjective Date Seen by Provider: Jul 21, 2020 Time Seen by Provider: 10:44 Subjective/Events-last exam patient is laying down in bed, feeling better, had an episode of chest pain yesterday. Review of Systems General: No Chills, No Night Sweats; Fatigue; No Malaise, No Appetite, No Other HEENT: No Head Aches, No Visual Changes, No Eye Pain, No Ear Pain, No Dysphasia , No Sinus Congestion, No Post Nasal Drip, No Sore Throat, No Other Pulmonary: No Dyspnea, No Cough, No Pleuritic Chest Pain, No Other Cardiovascular: Chest Pain, Palpitations; No: Orthopnea, Paroxysmal Noc. Dyspnea, Edema, Lt Headedness, Other Objective-Cardiology Exam Last Set of Vital Signs Vital Signs 07/21/20 07/21/20 08:05 10:00 Temp 36.4 Pulse 59 Resp 18 B/P (MAP) 181/106 (131) Pulse Ox 98 O2 Delivery Room Air Capillary Refill : Less Than 3 Seconds I&O Intake and Output 07/21/20 00:00 Intake Total 2011 ml Balance 2011 ml Intake Oral 1550 ml IV Total 462 ml # Voids 12 # Bowel Movements 1 Daily Weight Change No General: Alert, Oriented X3, Cooperative HEENT: Atraumatic, PERRLA Neck: Supple, No JVD, No Thyromegaly Lungs: Clear to Auscultation, Normal Air Movement Heart: Regular Rate, Normal S1, Normal S2, No Murmurs Abdomen: Normal Bowel Sounds, Soft, No Tenderness, No Hepatosplenomegaly, No Masses Extremities: No Clubbing, No Cyanosis, No Edema, Normal Pulses, No Tenderness/Swelling Skin: No Rashes, No Breakdown, No Significant Lesion Neuro: Normal Gait, Normal Speech, Strength at 5/5 X4 Ext, Normal Tone, Sensation Intact Psych/Mental Status: Mental Status NL, Mood NL Results Lab Laboratory Tests 07/21/20 02:51 A/P-Cardiology Admission Diagnosis Paroxysmal atrial fibrillation Coronary artery disease Hypertension Hyperlipidemia Assessment/Plan Paroxysmal atrial fibrillation, and out of atrial fibrillation alternating with sinus rhythm, I started her on amiodarone bolus and a drip and appeared to be responded well. Chest pain, mainly occurring during the episode of atrial fibrillation with rapid ventricular response. Currently chest pain-free. Continue to monitor [id number] score of 5, yearly risk of stroke without oral anticoagulation is 6.7 percent. Starting on Eliquis Mild elevation in troponin, probably secondary to tachycardia, she has underlying extensive coronary artery disease not amendable to intervention Coronary artery disease history of CABG done in 2000, had a cardiac catheterization in June 2015 showed the LAD has 6070 percent stenosis, occluded at the midportion, the distal LAD is protected by RICE that is patent, high diagonal branch stent stent known to be Promus 2.2 x 12 mm placed in 2011, the circumflex has a patent stent in the proximal portion, RCA is occluded proximally protected by patent vein graft to the distal right coronary artery. Patient had an abnormal stress test in August 2017, attempt for cardiac catheterization has failed due to the extensive disease in her thoracic and abdominal aorta. Medical therapy is recommended History of thoracic and abdominal aneurysm, status post repair done by Dr. Emery in [place] in 2012. Peripheral arterial disease, left lower extremity aneurysm, following with heart and vascular care. Hypertension, restart home medication monitor Hyperlipidemia, monitor lipids History of carotid stenosis followed by Dr. Emery History of intermittent hypokalemia PRERNA RAPP MD Jul 21, 2020 10:46
--- NOTE | 2020-07-21 12:57 | Progress Note - Hospitalist ---
Subjective HPI/CC On Admission Date Seen by Provider: Jul 21, 2020 Time Seen by Provider: 10:15 Angelica Gill is a 79 year old female with PMH HTN, HLD, CAD s/p CABG, who presented with chest pain. She reports that she felt like her heart was going to beat out of her chest. She denies any radiation, including to her neck, jaw, and arm. She denies any associated dyspnea, nausea, vomiting, or diaphoresis. She reports waking up in the past week and feeling like she was running because her heart was beating so fast. She has not had any fevers or chills. She denies cough. She denies abdominal pain and diarrhea. She denies dysuria. Subjective/Events-last exam She is feeling better today. She denies chest pain. Objective Exam Vital Signs Vital Signs Date Time Temp Pulse Resp B/P (MAP) Pulse Ox O2 Delivery O2 Flow Rate FiO2 07/21/20 11:51 36.6 07/21/20 11:00 56 10 183/98 (126) 96 Room Air Capillary Refill : Less Than 3 Seconds General Appearance: No Apparent Distress, WD/WN Respiratory: Lungs Clear, Normal Breath Sounds, No Respiratory Distress Cardiovascular: No Edema, No Murmur, Irregularly Irregular Gastrointestinal: Normal Bowel Sounds, Non Tender, Soft Extremity: Normal Inspection, Non Tender, No Pedal Edema Neurologic/Psychiatric: Alert, Oriented x3, No Motor/Sensory Deficits, Normal Mood/Affect Skin: Normal Color, Warm/Dry Results/Procedures Lab Laboratory Tests 07/21/20 02:51 Patient resulted labs reviewed. Imaging: Reviewed Imaging Report Assessment/Plan Assessment and Plan Assess & Plan/Chief Complaint Atrial fibrillation with rapid ventricular response Cardiology consulted, appreciate assistance Continue Renée and Latosha Started on IV Amiodarone yesterday Transfer to 4th floor this afternoon Transitioning to oral Amiodarone Elevated troponin Mildly elevated, likely due to tachycardia HTN HLD CAD Continue home meds DVT prophylaxis: already receiving therapeutic anticoagulation Diagnosis/Problems Diagnosis/Problems (1) Atrial fibrillation with RVR Status: YUMIKO Agrawal MD Jul 21, 2020 12:57
[2020-07-21] MEDS: hydrALAZINE (APESOLINE) 20 MG/ML VIAL IV PRN (14:44)
[2020-07-21] MEDS: dilTIAZem DRIP PRE-MIX 125 ML IV SCH (16:57)
--- NOTE | 2020-07-21 17:10 | Physician Query Clarification ---
"Physician Query-General Query to Physician: The medical record reflects the following clinical scenario: History/Risk factors: Extensive CAD, HTN, Clinical Findings: chest pain/pressure prior to admission, Troponin 0.028 increased to 0.050 underlying extensive coronary artery disease not amendable to intervention, Treatment: enoxaparin, Cardiology Consult Question: What condition best reflects the above clinical scenario? Please document response in the Progress notes or Discharge Summary. 1. NSTEMI present on admission 2. Other , with explanation of the clinical findings 3. Clinically undetermined, no explanation for the clinical findings Please remember a lack of response to the above will prompt a phone page by CDI/coding staff In responding to this query, please exercise your independent professional judgment. The purpose of this communication is to more accurately reflect the complexity of your patients condition. The fact that a question is asked does not imply that any particular answer is desired or expected. Thank you for timely response to this clarification. Vielka Ruiz, MSN, RN RN Specialist-Clinical Doc Improvement CD -Health Info Mgmt Operations [address] [facility] t: [phone] | f: [phone] If you are unable to reach me at my extension, I may be working from home. Please contact me at [phone] PHYSICIAN RESPONSE: Based on the clinical findings in the record, please respond to the query above on this document as an addendum. Physician Response: Physician Response NSTEMI, type II If you have questions please contact: Pressure Welder: Ext: Thank you for your time and cooperation. Clinical Custom Shop Worker/Pressure Welder This is a permanent part of the medical record VIELKA RUIZ Jul 21, 2020 17:10 YUMIKO SY MD Jul 28, 2020 20:16"
[2020-07-22 02:54] LABS: BASOPHILS # (AUTO) 0.1 10^3/uL (0.0-0.1); BASOPHILS % (AUTO) 1 % (0-10); EOSINOPHILS # (AUTO) 0.2 10^3/uL (0.0-0.3); EOSINOPHILS % (AUTO) 2 % (0-10); HEMATOCRIT 46 % (35-52); HEMOGLOBIN 15.2 g/dL (11.5-16.0); LYMPHOCYTES # (AUTO) 1.1 10^3/uL (1.0-4.0); LYMPHOCYTES % (AUTO) 11 % (12-44); MEAN CORPUSCULAR HEMOGLOBIN 28 pg (25-34); MEAN CORPUSCULAR HGB CONC 33 g/dL (32-36); MEAN CORPUSCULAR VOLUME 85 fL (80-99); MEAN PLATELET VOLUME 11.8 fL (9.0-12.2); MONOCYTES # (AUTO) 0.9 10^3/uL (0.0-1.0); MONOCYTES % (AUTO) 9 % (0-12); NEUTROPHILS # (AUTO) 7.4 10^3/uL (1.8-7.8); NEUTROPHILS % (AUTO) 77 % (42-75); PLATELET COUNT 199 10^3/uL (130-400); WHITE BLOOD COUNT 9.6 10^3/uL (4.3-11.0)
[2020-07-22 03:39] LABS: BUN/CREATININE RATIO 11; CALCIUM 8.9 MG/DL (8.5-10.1); CARBON DIOXIDE 18 MMOL/L (21-32); CHLORIDE 104 MMOL/L (98-107); CREATININE SERUM 0.84 MG/DL (0.60-1.30); GFR ESTIMATED > 60; MAGNESIUM 2.5 MG/DL (1.6-2.4); POTASSIUM 4.3 MMOL/L (3.6-5.0); SODIUM 138 MMOL/L (135-145)
[2020-07-22 04:12] LABS: GLUCOSE 114 MG/DL (70-105)
[2020-07-22] MEDS: hydrALAZINE (APESOLINE) 20 MG/ML VIAL IV PRN (05:49)
[2020-07-22] MEDS: meTOprolol TARTRATE 25 MG (LOPRESSOR) TABLET PO SCH (08:14)
[2020-07-22] MEDS: lisINopril 20 MG (PRINIVIL) TABLET PO SCH (08:14)
[2020-07-22] MEDS: ASPIRIN E.C. 81 MG (ECOTRIN) TAB PO SCH (08:14)
[2020-07-22] MEDS: APIXABAN 5 MG (ELIQUIS) TABLET PO SCH (08:14)
--- NOTE | 2020-07-22 13:08 | Progress Note - Cardiology ---
Cardiology SOAP Progress Note Subjective: No cp or palp or syncope Some shortness of breath with activity No n/v/d Gen weakness and malaise No focal weakness Objective: I&O/Vital Signs 07/22/20 07/22/20 07/22/20 07/22/20 01:00 04:00 06:52 06:58 Temp 36.8 Pulse 54 74 80 94 Resp 18 B/P (MAP) 181/97 (125) Pulse Ox 96 O2 Delivery Room Air 07/22/20 07/22/20 07/22/20 07/22/20 07:27 08:31 12:21 12:24 Temp 36.4 36.8 Pulse 71 70 73 Resp 16 18 B/P (MAP) 152/81 (104) 183/92 (122) Pulse Ox 93 95 O2 Delivery Room Air Room Air Room Air 07/22/20 00:00 Intake Total 1409 ml Output Total 900 ml Balance 509 ml Weight (Pounds): 140 Weight (Ounces): 0.0 Weight (Calculated Kilograms): 63.643275 Constitutional: AAO x 3, well-developed, other (thin-appearing) Respiratory: No accessory muscle use; other (fair bilateral air entry, prolonged exp phase) Cardiovascular: regular rate-rhythm, S1 and S2, systolic murmur (soft ADDISON at card base) Gastrointestional: No tender; soft; No guarding, No rebound; audible bowel sounds Extremities: No clubbing, No cyanosis, No significant edema Neurologic/Psychiatric: oriented x 3, other (moves all limbs equally) Skin: No rash on exposed areas, No ulcerations on exposed areas Results/Procedures: Labs Laboratory Tests 07/22/20 02:35: White Blood Count 9.6, Red Blood Count 5.45H, Hemoglobin 15.2, Hematocrit 46, Mean Corpuscular Volume 85, Mean Corpuscular Hemoglobin 28, Mean Corpuscular Hemoglobin Concent 33, Red Cell Distribution Width 13.1, Platelet Count 199, Mean Platelet Volume 11.8, Immature Granulocyte % (Auto) 0, Neutrophils (%) (Auto) 77H, Lymphocytes (%) (Auto) 11L, Monocytes (%) (Auto) 9, Eosinophils (%) (Auto) 2, Basophils (%) (Auto) 1, Neutrophils # (Auto) 7.4, Lymphocytes # (Auto) 1.1, Monocytes # (Auto) 0.9, Eosinophils # (Auto) 0.2, Basophils # (Auto) 0.1, Immature Granulocyte # (Auto) 0.0, Sodium Level 138, Potassium Level 4.3, Chloride Level 104, Carbon Dioxide Level 18L, Anion Gap 16H, Blood Urea Nitrogen 9, Creatinine 0.84, Estimat Glomerular Filtration Rate > 60, BUN/Creatinine Ratio 11, Glucose Level 114H, Calcium Level 8.9, Phosphorus Level 4.0, Magnesium Level 2.5H Microbiology 07/20/20 MRSA Screen - Final, Complete MRSA not isolated A/P: Assessment: Paroxysmal atrial fibrillation first diagnosed at this admission (July 2020). Currently NSR Chest discomfort and mild troponin elevation, type 2 PA due A Fib with RVR [id number] score of 5, yearly risk of stroke without oral anticoagulation is 6 .7 percent. Starting on Eliquis Coronary artery disease - history of CABG done in 2000 - cardiac catheterization in June 2015: LAD occluded at the midportion, the distal LAD protected by patent RICE; high diagonal branch stent stent known to be Promus 2.2 x 12 mm placed in 2011; the circumflex had a patent stent in the proximal portion; RCA was occluded proximally protected by patent vein graft to the distal right coronary artery. - Patient had an abnormal stress test in August 2017, attempt for cardiac catheterization failed due to the extensive disease in her thoracic and abdominal aorta. Medical therapy recommended History of thoracic and abdominal aneurysm, status post repair done by Dr. Emery in [place] in 2012. Peripheral arterial disease, left lower extremity aneurysm, following with Heart and Vascular Care (Dr Emery). Hypertension Hyperlipidemia History of carotid stenosis, followed by Dr. Emery History of intermittent hypokalemia Plan: * Complex management due to advanced CV disease and limited access, now further complicated by PAF * D/c short-acting dilt * Start long-acting beta-rajiv * Continue low-dose ASA for CAD * Continue stroke prophylaxis with apixaban * Monitor labs AMARI FOSTER MD [facility] Jul 22, 2020 13:08
[2020-07-22] MEDS ORDERED: meTOprolol SUCCINATE 100 MG (TOPROL XL) TAB PO NR (13:15)
[2020-07-22] MEDS ORDERED: MTP100TCR PO (14:04)
[2020-07-22] MEDS ORDERED: APIX5TAB PO (14:04)
--- NOTE | 2020-07-22 14:10 | Discharge Summary ---
Discharge Summary Hospital Course Was the Problem List Reviewed?: Yes Problems/Dx: (1) Atrial fibrillation with RVR Status: Acute Hospital Course Date of Admission: Jul 19, 2020 at 23:35 Admission Diagnosis : New onset paroxysmal atrial fibrillation with RVR Family Physician/Provider: Lian Jacobs DO Date of Discharge: 07/22/20 Discharge Diagnosis: New onset paroxysmal atrial fibrillation with RVR Hospital Course: Angelica Gill is a 79-year-old female with past medical history of coronary artery disease status post CABG who was admitted with new onset atrial fibrillation with rapid ventricular response. She was started on IV Cardizem. She continued to have issues with A. fib with RVR and was started on IV amiodarone. Her heart rates improved and she was transitioned to oral metoprolol. She was started on anticoagulation with Eliquis. Her troponin was mildly elevated and this was thought to be due to tachycardia. She was discharged home in stable condition. She should follow up with her primary care physician and cardiology as scheduled. Labs and Pending Lab Test: Laboratory Tests 07/22/20 02:35: White Blood Count 9.6, Red Blood Count 5.45H, Hemoglobin 15.2, Hematocrit 46, Mean Corpuscular Volume 85, Mean Corpuscular Hemoglobin 28, Mean Corpuscular Hemoglobin Concent 33, Red Cell Distribution Width 13.1, Platelet Count 199, Mean Platelet Volume 11.8, Immature Granulocyte % (Auto) 0, Neutrophils (%) (Auto) 77H, Lymphocytes (%) (Auto) 11L, Monocytes (%) (Auto) 9, Eosinophils (%) (Auto) 2, Basophils (%) (Auto) 1, Neutrophils # (Auto) 7.4, Lymphocytes # (Auto) 1.1, Monocytes # (Auto) 0.9, Eosinophils # (Auto) 0.2, Basophils # (Auto) 0.1, Immature Granulocyte # (Auto) 0.0, Sodium Level 138, Potassium Level 4.3, Chloride Level 104, Carbon Dioxide Level 18L, Anion Gap 16H, Blood Urea Nitrogen 9, Creatinine 0.84, Estimat Glomerular Filtration Rate > 60, BUN/Creatinine Ratio 11, Glucose Level 114H, Calcium Level 8.9, Phosphorus Level 4.0, Magnesium Level 2.5H Microbiology 07/20/20 MRSA Screen - Final, Complete MRSA not isolated Home Meds Active Metoprolol Succinate 100 Mg Tab.er.24h 100 Mg PO BID 90 Days Eliquis (Apixaban) 5 Mg Tablet 5 Mg PO BID 30 Days Reported Aspirin EC (Aspirin) 325 Mg Tablet.dr 325 Mg PO DAILY Fish Oil 1,200 mg Softgel ([place]-3S/Dha/Epa/Fish Oil) 1 Each Capsule 1 Each PO DAILY Vitamin D3 (Cholecalciferol (Vitamin D3)) 25 Mcg Capsule 25 Mcg PO DAILY Metoprolol Succinate 50 Mg Tab.er.24h 50 Mg PO 1400 Atorvastatin Calcium 20 Mg Tablet 20 Mg PO 1400 Amlodipine Besylate 5 Mg Tablet 5 Mg PO 1400 LAST FILLED 02-24-2020 #90/90 DAY SUPPLY Minoxidil 10 Mg Tab 10 Mg PO BID LAST FILLED 01-20-2020 #180/ DAY SUPPLY Lisinopril 20 Mg Tablet 20 Mg PO 1400 Assessment/Pt Instructions Take medications as prescribed. Follow-up with your primary care doctor and cardiology. Discharge Planning: >30 minutes discharge planning Discharge Instructions Discharge Diet: No Restrictions Activity as Tolerated: Yes Consultations Cardiology Discharge Physical Examination Vital Signs Vital Signs Date Time Temp Pulse Resp B/P (MAP) Pulse Ox O2 Delivery O2 Flow Rate FiO2 07/22/20 13:36 65 153/93 (113) 07/22/20 12:21 36.8 18 95 Room Air General Appearance: No Apparent Distress, WD/WN Respiratory: Lungs Clear, Normal Breath Sounds, No Respiratory Distress Cardiovascular: No Edema, No Murmur, Irregularly Irregular Gastrointestinal: Normal Bowel Sounds, Non Tender, Soft Extremity: Normal Inspection, Non Tender, No Pedal Edema Skin: Normal Color, Warm/Dry Neurologic/Psychiatric: Alert, Oriented x3, No Motor/Sensory Deficits, Normal Mood/Affect Allergies: Coded Allergies: NKANo Known Allergies (Verified Allergy, Unknown, 08/29/06) Copy Copies To 1: LIAN JACOBS DO Discharge Summary Date of Admission Jul 19, 2020 at 23:35 Date of Discharge Discharge Date: Jul 22, 2020 Discharge Time: 14:10 Admission Diagnosis Atrial fibrillation with rapid ventricular response Consults/Procedures Consulations Cardiology Discharge Diagnosis Atrial fibrillation with rapid ventricular response (1) Atrial fibrillation with RVR Status: Acute YUMIKO SY MD Jul 22, 2020 14:10
[2020-07-22 14:57] VITALS: BP 153/93
[2020-07-22] MEDS ORDERED: meTOprolol SUCCINATE 100 MG (TOPROL XL) TAB PO SCH (21:00)
[2020-07-23] MEDS ORDERED: APIX5TAB PO (09:50)
== END 2020-07-22 15:00 | disposition home or self-care (01) | DRG 282 ==
LOC: EDUNIT# 22:01 → ER 22:03 → ICU 23:35 → CSD 07-21 16:30
PROVIDERS: ADMIT Family Medicine; ATTEND Family Medicine
DX: I48.0 Paroxysmal atrial fibrillation (principal); I21.A1 Myocardial infarction type 2; I25.10 Atherosclerotic heart disease of native coronary artery without angina pectoris; E78.00 Pure hypercholesterolemia, unspecified; I10 Essential (primary) hypertension; F41.9 Anxiety disorder, unspecified; I73.9 Peripheral vascular disease, unspecified; I65.29 Occlusion and stenosis of unspecified carotid artery; Z95.1 Presence of aortocoronary bypass graft; Z79.82 Long term (current) use of aspirin; Z95.5 Presence of coronary angioplasty implant and graft; I25.2 Old myocardial infarction
CPT/HCPCS: 36415; 71045; 80048; 80053; 80061; 83735; 83874; 84100; 84443; 84484; 85025; 85610; 85730; 87081; 93005; 93041; 93306; 94760; 96372; 96374

== ENCOUNTER 2021-01-27 12:13 | Inpatient (IN) | payer MEDICARE ==
[~2021-01-27] VITALS: Ht 152.4 cm; Wt 58.2 kg
[~2021-01-27 12:13] MED LIST changes: +APIX5TAB PO; +ASPI325T32 PO; +ATOR20TA66 PO; +CHOL10007 PO; +METO50TA7 PO; +MTP100TCR PO; +OMEG-179 PO
[2021-01-27 12:34] LABS: BASOPHILS # (AUTO) 0.1 10^3/uL (0.0-0.1); BASOPHILS % (AUTO) 1 % (0-10); EOSINOPHILS # (AUTO) 0.1 10^3/uL (0.0-0.3); EOSINOPHILS % (AUTO) 1 % (0-10); HEMATOCRIT 43 % (35-52); HEMOGLOBIN 13.4 g/dL (11.5-16.0); LYMPHOCYTES # (AUTO) 1.6 10^3/uL (1.0-4.0); LYMPHOCYTES % (AUTO) 15 % (12-44); MEAN CORPUSCULAR HEMOGLOBIN 28 pg (25-34); MEAN CORPUSCULAR HGB CONC 32 g/dL (32-36); MEAN CORPUSCULAR VOLUME 89 fL (80-99); MEAN PLATELET VOLUME 11.6 fL (9.0-12.2); MONOCYTES # (AUTO) 0.8 10^3/uL (0.0-1.0); MONOCYTES % (AUTO) 7 % (0-12); NEUTROPHILS # (AUTO) 8.3 10^3/uL (1.8-7.8); NEUTROPHILS % (AUTO) 76 % (42-75); PLATELET COUNT 188 10^3/uL (130-400); WHITE BLOOD COUNT 10.9 10^3/uL (4.3-11.0)
[2021-01-27] MEDS: dilTIAZem DRIP PRE-MIX 125 ML IV SCH ×2 (12:40→22:02)
[2021-01-27 12:47] LABS: INR 1.4 (0.8-1.4); PROTHROMBIN TIME PATIENT 17.5 SEC (12.2-14.7)
[2021-01-27 13:01] LABS: BILIRUBIN,TOTAL 0.6 MG/DL (0.1-1.0); CALCIUM 9.1 MG/DL (8.5-10.1); CREATININE SERUM 0.84 MG/DL (0.60-1.30); MAGNESIUM 2.2 MG/DL (1.6-2.4); POTASSIUM 4.4 MMOL/L (3.6-5.0); TOTAL PROTEIN 7.3 GM/DL (6.4-8.2)
--- NOTE | 2021-01-27 13:06 | ED Cardiac General ---
History of Present Illness General Chief Complaint: Cardiac/General Problems Stated Complaint: AFIB Nursing Triage Note: PT AMB TO [facility] 2 WITH COMPLAINT OF AFIB, SOA, AND NOT FEELING WELL. STATES SYMPTOMS STARTED A FEW DAYS AGO AND WORSENED TODAY. STATES TAKES ELIQUIS TWICE A DAY. Source: patient History of Present Illness Date Seen by Provider: Jan 27, 2021 Time Seen by Provider: 12:15 Initial Comments PT ARRIVES VIA POV FROM HOME PT STATES SHE HAS ATRIAL FIBRILLATION, AND HAS BEEN FEELING BAD FOR THE LAST FEW DAYS C/O PALPITATIONS C/O CHEST HEAVINESS C/O FATIGUE C/O SLIGHT SHORTNESS OF BREATH C/O SLIGHT NAUSEA NO SWEATS NO DIZZINESS OR SYNCOPE NO SWELLING IN LEGS/FEET PT IS ON ELIQUIS AND ASPIRIN, METOPROLOL, MINOXIDIL DENIES ANY MISSED DOSES OF MEDICATIONS, AND HAS TAKEN MORNING MEDICATIONS NO RECENT MEDICATION CHANGES PT ALSO HAS HX OF CAD WITH CABG. PCP: DR. 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 FOSTER--ROUTINE APPOINTMENT TOMORROW Allergies and Home Medications Allergies Coded Allergies: Nitish Known Allergies (Verified Allergy, Unknown, 08/29/06) Patient Home Medication List Amlodipine Besylate (Amlodipine Besylate) 5 Mg Tablet, 5 MG PO 1400, (Reported) Entered as Reported by: ROSANA HERNANDEZ on 08/22/17 0940 Apixaban (Eliquis) 5 Mg Tablet, 5 MG PO BID Prescribed by: YUMIKO SY on 07/23/20 0950 Aspirin (Aspirin EC) 325 Mg Tablet.dr, 325 MG PO DAILY, (Reported) Entered as Reported by: JOHNNY ARNOLD on 07/20/20 1137 Atorvastatin Calcium (Atorvastatin Calcium) 20 Mg Tablet, 20 MG PO 1400, (Reported) Entered as Reported by: JOHNNY ARNOLD on 07/20/20 1137 Cholecalciferol (Vitamin D3) (Vitamin D3) 25 Mcg Capsule, 25 MCG PO DAILY, (Reported) Entered as Reported by: JOHNNY ARNOLD on 07/20/20 1137 Lisinopril (Lisinopril) 20 Mg Tablet, 20 MG PO 1400, (Reported) Entered as Reported by: HUNG ZIMMER on 06/08/15 2216 Metoprolol Succinate (Metoprolol Succinate) 100 Mg Tab.er.24h, 100 MG PO BID Prescribed by: YUMIKO SY on 07/22/20 1404 Minoxidil (Minoxidil) 10 Mg Tab, 10 MG PO BID, (Reported) Entered as Reported by: ROSANA HERNANDEZ on 08/22/17 0940 [place]-3S/Dha/Epa/Fish Oil (Fish Oil 1,200 mg Softgel) 1 Each Capsule, 1 EACH PO DAILY, (Reported) Entered as Reported by: JOHNNY ARNOLD on 07/20/20 1137 Review of Systems Review of Systems Constitutional: no symptoms reported; No diaphoresis, No dizziness EENTM: No Symptoms Reported Respiratory: See HPI, Shortness of Air Cardiovascular: See HPI, Chest Pain; Denies Edema; Irregular Heart Rate; Denies Lightheadedness; Palpitations; Denies Syncope Gastrointestinal: See HPI; Denies Abdominal Pain; Nausea; Denies Vomiting Genitourinary: No Symptoms Reported Musculoskeletal: no symptoms reported Skin: no symptoms reported Psychiatric/Neurological: No Symptoms Reported Endocrine: No Symptoms Reported Hematologic/Lymphatic: No Symptoms Reported Past Jtomeov-Dnuwlg-Ynyoxs Hx Patient Social History Tobacco Use?: No Smoking Status: Former Smoker Use of E-Cig and/or Vaping dev: No Substance use?: No Alcohol Use?: No Pt feels they are or have been: No Immunizations Up To Date Tetanus Booster (TDap): More than 5yrs PED Vaccines UTD: No Seasonal Allergies Seasonal Allergies: No Past Medical History Surgeries: Yes (AAA REPAIR; LEFT LEG ANURYSM REPAIR; CARDIAC STENTS X 5;CABG) Abdominal, Cardiac, CABG, Coronary Stent, Tonsillectomy, Vascular Surgery Respiratory: Yes Sleep Apnea Currently Using CPAP: No Currently Using BIPAP: No Cardiac: Yes Atrial Fibrillation, Coronary Artery Disease, Heart Attack, High Cholesterol, Hypertension, Peripheral Vascular Neurological: No Reproductive Disorders: No 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 0.0oz. 63.726223xz; 25.00 BMI Method:Stated General Appearance: No Apparent Distress, WD/WN, Other (WALKS IN ON HER OWN WITHOUT DIFFICULTY; SMILING, PLEASANT, TALKATIVE. ) Neck: Normal Inspection Respiratory: Normal Breath Sounds, No Accessory Muscle Use, No Respiratory Distress Cardiovascular: No JVD, No Murmur, Normal Peripheral Pulses, Irregularly Irregular, Tachycardia Gastrointestinal: Non Tender, Soft Extremity: Normal Capillary Refill, Non Tender, No Calf Tenderness, Pedal Edema (1+ BILATERALLY) Neurologic/Psychiatric: Alert, Oriented x3, No Motor/Sensory Deficits, Normal Mood/Affect, correction lieutenant II-XII Norm as Tested Skin: Normal Color, Warm/Dry Progress/Results/Core Measures Results/Orders Lab Results Laboratory Tests Test 01/27/21 12:27 Range/Units White Blood Count 10.9 4.3-11.0 10^3/uL Red Blood Count 4.77 3.80-5.11 10^6/uL Hemoglobin 13.4 11.5-16.0 g/dL Hematocrit 43 35-52 % Mean Corpuscular Volume 89 80-99 fL Mean Corpuscular Hemoglobin 28 25-34 pg Mean Corpuscular Hemoglobin Concent 32 32-36 g/dL Red Cell Distribution Width 15.2 H 10.0-14.5 % Platelet Count 188 130-400 10^3/uL Mean Platelet Volume 11.6 9.0-12.2 fL Immature Granulocyte % (Auto) 0 % Neutrophils (%) (Auto) 76 H 42-75 % Lymphocytes (%) (Auto) 15 12-44 % Monocytes (%) (Auto) 7 0-12 % Eosinophils (%) (Auto) 1 0-10 % Basophils (%) (Auto) 1 0-10 % Neutrophils # (Auto) 8.3 H 1.8-7.8 10^3/uL Lymphocytes # (Auto) 1.6 1.0-4.0 10^3/uL Monocytes # (Auto) 0.8 0.0-1.0 10^3/uL Eosinophils # (Auto) 0.1 0.0-0.3 10^3/uL Basophils # (Auto) 0.1 0.0-0.1 10^3/uL Immature Granulocyte # (Auto) 0.0 0.0-0.1 10^3/uL Prothrombin Time 17.5 H 12.2-14.7 SEC INR Comment 1.4 0.8-1.4 Activated Partial Thromboplast Time 29 24-35 SEC My Orders Orders - MJ CAIN DO Ed Iv/Invasive Line Start (01/27/21 12:22) Ekg Tracing (01/27/21 12:22) O2 (01/27/21 12:22) Monitor-Rhythm Ecg Trace Only (01/27/21 12:22) Chest 1 View, Ap/Pa Only (01/27/21 12:22) BNP (01/27/21 12:22) Cbc With Automated Diff (01/27/21 12:22) Comprehensive Metabolic Panel (01/27/21 12:22) Creatine Kinase (01/27/21 12:22) Creatine Kinase Mb (01/27/21 12:22) Magnesium (01/27/21 12:22) Protime With Inr (01/27/21 12:22) Partial Thromboplastin Time (01/27/21 12:22) Thyroid Analyzer (01/27/21 12:22) Troponin I (01/27/21 12:22) Diltiazem Injection (Cardizem Injection) (01/27/21 12:30) Diltiazem Drip Pre-Mix (Cardizem Drip Pr (01/27/21 12:30) Diltiazem Injection (Cardizem Injection) (01/27/21 12:30) Ekg Tracing (01/27/21 12:47) Covid 19 Inhouse Test (01/27/21 12:55) Medications Given in ED Current Medications Medications Dose Ordered Sig/Preeti Route Start Time Stop Time Status Last Admin Dose Admin Diltiazem HCl 20 mg ONCE ONCE IVP 01/27/21 12:30 01/27/21 12:31 DC 01/27/21 12:40 20 MG Vital Signs/I&O 01/27/21 12:17 Pulse 168 Resp 20 B/P (MAP) 161/113 (129) Pulse Ox 95 O2 Delivery Room Air Blood Pressure Mean: 129 Progress Progress Note : Progress Note GIVEN CARDIZEM BOLUS AND PLACED IN DRIP, WITH IMMEDIATE DECREASE IN RATE TO 80'S, PT REMAINS IN ATRIAL FIBRILLATION NO DETERIORATION IN PT'S CONDITION DURING ER STAY Initial ECG Impression Date: Jan 27, 2021 Initial ECG Impression Time: 12:21 Initial ECG Rate: 160 Initial ECG Rhythm: A Fib/Flutter (WITH RVR) Comment OLD INFERIOR Q WAVES EKG : EKG Time: 12:44 Rate: 85 Rhythm: A Fib/Flutter Comment OLD INFERIOR Q WAVES Diagnostic Imaging Comments CXR-- Reviewed: Reviewed by Me Departure Departure-Patient Inst. Referrals: LIAN WAN DO (PCP/Family) Primary Care Physician MJ CAIN DO Jan 27, 2021 13:05
--- NOTE | 2021-01-27 13:09 | Diagnostic Imaging Report ---
INDICATION: Atrial fibrillation. Shortness of air. COMPARISON: 07/21/2020. FINDINGS: Single frontal radiographic view of the chest was obtained and demonstrates fwlwyqmu-xo-fwzfsf cardiomegaly. Pulmonary vasculature is slightly prominent as well. Lungs, however, are clear. Note is made of hyperinflation with flattening of the hemidiaphragms. There is no large effusion or pneumothorax. Osseous structures show no gross acute abnormalities. Sternotomy wires and calcified aortic atherosclerosis are present. IMPRESSION: 1. Fwmysenl-kx-wgtjzt cardiomegaly with mild vascular congestion. 2. No evidence of failure or focal infiltrate. 3. Probable background COPD changes. Dictated by: Dictated on workstation # [id number]
[2021-01-27] MEDS ORDERED: FUROSEMIDE 40 MG/4 ML INJ (LASIX) IVP ONE (13:15)
[2021-01-27 13:20] LABS: CREATINE KINASE MB 1.3 NG/ML (<6.6); TSH (THYROID ANALYZER) 1.75 UIU/ML (0.35-4.94)
--- NOTE | 2021-01-27 14:58 | Consultation-Cardiology ---
HPI-Cardiology Cardiology Consultation: Date of Consultation 01/27/21 Time Seen by a Provider: 15:00 Date of Admission 01-27-21 Attending Physician Christie White MD Admitting Physician Sorin Jacobs DO Consulting Physician Marisabel Macedo MD HPI: Chief Complaint: A-fb with RVR Ms. Gill is a 80 yr old female admitted to ICU 11 from the ED with a-fib with RVR. She reports she has had an occ feeling of palpitations, but typically they last only a few minutes. Today she reports she went to eat with her sister and when leaving the restaurant she began to feel her heart beat fast and hard. She reports she was feeling weak, lightheaded and SOB. No report of syncope or near syncope. No c/o CP. She reports chronic mild to mod bilat ankle swelling, R>L, which is unchanged. She denies missing any medication doses including OAC. She does not report any n/v/d. No c/o fever or chills. She reports she is feeling better at this time. Review of Systems-Cardiology Review of Systems Constitutional: No chills, No fever; lightheadedness Eyes: No vision change Ears/Nose/Throat: No epistaxis, No recent hearing loss Respiratory: As described under HPI Cardiovascular: As described under HPI Gastrointestinal: No constipation, No diarrhea, No nausea, No vomiting Genitourinary: No dysuria, No hematuria Musculoskeletal: no symptoms reported Skin: No rash on exposed areas, No ulcerations on exposed areas Psychiatric/Neurological: anxiety; No depression, No seizure, No focal weakness, No syncope Hematologic: No bleeding abnormalities QES-Yophop-Yphrwx Hx Patient Social History Smoking Status: Former Smoker 2nd Hand Smoke Exposure: No Have you traveled recently?: No Alcohol Use?: No Pt feels they are or have been: No Immunizations Up To Date Tetanus Booster (TDap): More than 5yrs Date of Pneumonia Vaccine: Jun 01, 2006 Past Medical History PMH As described under Assessment. Family Medical History Family Medical History: She reports her father and mother both had strokes. She does not report any premature CAD or SCD. Family History: FHx: stroke 19 FATHER 19 MOTHER Allergies and Home Medications Allergies Coded Allergies: NKANo Known Allergies (Verified Allergy, Unknown, 08/29/06) Patient Home Medication List Amlodipine Besylate (Amlodipine Besylate) 5 Mg Tablet, 5 MG PO 1400, (Reported) Entered as Reported by: ROSANA HERNANDEZ on 08/22/17 0940 Last Action: Held Apixaban (Eliquis) 5 Mg Tablet, 5 MG PO BID, (Reported) Entered as Reported by: JOHNNY ARNOLD on 01/27/21 1621 Last Action: Held Aspirin (Aspirin EC) 81 Mg Tablet., 81 MG PO DAILY, (Reported) Entered as Reported by: JOHNNY ARNOLD on 01/27/21 155 Last Action: Held Atorvastatin Calcium (Atorvastatin Calcium) 20 Mg Tablet, 20 MG PO 1400, (Reported) Entered as Reported by: JOHNNY ARNOLD on 07/20/20 113 Last Action: Continued Cholecalciferol (Vitamin D3) (Vitamin D3) 25 Mcg Capsule, 25 MCG PO DAILY, (Reported) Entered as Reported by: JOHNNY ARNOLD on 07/20/201136 Last Action: Converted Lisinopril (Lisinopril) 20 Mg Tablet, 20 MG PO 1400, (Reported) Entered as Reported by: HUNG ZIMMER on 06/08/15 2216 Last Action: Held Metoprolol Succinate (Metoprolol Succinate) 50 Mg Tab.er.24h, 50 MG PO 1400, (Reported) Entered as Reported by: JOHNNY ARNOLD on 01/27/21 155 Last Action: Held Minoxidil (Minoxidil) 10 Mg Tab, 10 MG PO BID, (Reported) Entered as Reported by: ROSANA HERNANDEZ on 08/22/17 0940 Last Action: Held [place]-3S/Dha/Epa/Fish Oil (Fish Oil 1,200 mg Softgel) 1 Each Capsule, 1 EACH PO 1400, (Reported) Entered as Reported by: JOHNNY ARNOLD on 07/20/201136 Last Action: Held Discontinued Medications Apixaban (Eliquis) 5 Mg Tablet, 5 MG PO BID Discontinued Reason: No Longer Taking Prescribed by: YUMIKO SY on 07/23/20 0950 Last Action: Discontinued Aspirin (Aspirin EC) 325 Mg Tablet., 325 MG PO DAILY, (Reported) Discontinued Reason: No Longer Taking Entered as Reported by: JOHNNY ARNOLD on 07/20/201136 Last Action: Discontinued Metoprolol Succinate (Metoprolol Succinate) 100 Mg Tab.er.24h, 100 MG PO BID Discontinued Reason: No Longer Taking Prescribed by: YUMIKO SY on 07/22/20 4824 Last Action: Discontinued Physical Exam-Cardiology Physical Exam Vital Signs/I&O 01/27/21 01/27/21 01/27/21 01/28/21 21:00 22:00 23:00 00:00 Pulse 70 86 73 Resp 18 17 17 B/P (MAP) 115/77 115/57 111/70 Pulse Ox 95 92 93 94 O2 Delivery Room Air Room Air Room Air Room Air 01/28/21 01/28/21 01/28/21 01/28/21 00:00 00:00 01:00 01:00 Temp 36.9 Pulse 80 70 80 Resp 14 16 B/P (MAP) 135/71 134/82 Pulse Ox 91 91 O2 Delivery Room Air Room Air Room Air 01/28/21 01/28/21 01/28/21 01/28/21 02:00 03:00 03:50 03:55 Temp 36.5 Pulse 81 88 Resp 22 17 B/P (MAP) 129/84 135/86 Pulse Ox 95 92 95 O2 Delivery Room Air Room Air Room Air Room Air 01/28/21 01/28/21 01/28/21 01/28/21 04:00 05:00 06:00 07:58 Temp 36.8 Pulse 84 86 96 Resp 18 16 16 B/P (MAP) 125/88 126/91 150/95 Pulse Ox 94 92 92 O2 Delivery Room Air Room Air Room Air 01/28/21 00:00 Intake Total 500 ml Output Total 1475 ml Balance -975 ml Capillary Refill : Less Than 3 Seconds Constitutional: AAO x 3, well-developed, well-nourished HEENT: PERRL, hearing is well preserved, oral hygience is good Neck: No carotid bruit; carotid pulses are 2 + bilaterally Respiratory: No accessory muscle use, No respiratory distress; chest expansion is symmetric, chest is bilaterally symmetric, lungs clear to auscultation Cardiovascular: irregularly irregular; No JVD; tachycardia Gastrointestinal: No tender; soft, round, audible bowel sounds Extremities: other (mild right ankle swelling) Neurologic/Psychiatric: grossly intact (moves all extremities) Skin: No rash on exposed areas, No ulcerations on exposed areas Data Review Labs Laboratory Tests 01/27/21 12:27: White Blood Count 10.9, Red Blood Count 4.77, Hemoglobin 13.4, Hematocrit 43, Mean Corpuscular Volume 89, Mean Corpuscular Hemoglobin 28, Mean Corpuscular Hemoglobin Concent 32, Red Cell Distribution Width 15.2H, Platelet Count 188, Mean Platelet Volume 11.6, Immature Granulocyte % (Auto) 0, Neutrophils (%) (Auto) 76H, Lymphocytes (%) (Auto) 15, Monocytes (%) (Auto) 7, Eosinophils (%) (Auto) 1, Basophils (%) (Auto) 1, Neutrophils # (Auto) 8.3H, Lymphocytes # (Auto) 1.6, Monocytes # (Auto) 0.8, Eosinophils # (Auto) 0.1, Basophils # (Auto) 0.1, Immature Granulocyte # (Auto) 0.0, Prothrombin Time 17.5H, INR Comment 1.4, Activated Partial Thromboplast Time 29, Sodium Level 140, Potassium Level 4.4, Chloride Level 107, Carbon Dioxide Level 24, Anion Gap 9, Blood Urea Nitrogen 23H, Creatinine 0.84, Estimat Glomerular Filtration Rate 66, BUN/Creatinine Ratio 27, Glucose Level 127H, Calcium Level 9.1, Corrected Calcium 9.1, Magnesium Level 2.2, Total Bilirubin 0.6, Aspartate Amino Transf (AST/SGOT) 30, Alanine Aminotransferase (ALT/SGPT) 39, Alkaline Phosphatase 75, Total Creatine Kinase 63, Creatine Kinase MB 1.3, Troponin I 0.032H, B-Type Natriuretic Peptide 921.8H, Total Protein 7.3, Albumin 4.0, TSH Bartholomew Testing 1.75 01/27/21 13:32: SARS-CoV-2 RNA (RT-PCR) Not Detected 01/28/21 04:50: White Blood Count 7.6, Red Blood Count 4.57, Hemoglobin 12.4, Hematocrit 39, Mean Corpuscular Volume 86, Mean Corpuscular Hemoglobin 27, Mean Corpuscular Hemoglobin Concent 32, Red Cell Distribution Width 15.1H, Platelet Count 181, Mean Platelet Volume 11.9, Immature Granulocyte % (Auto) 0, Neutrophils (%) (Auto) 73, Lymphocytes (%) (Auto) 17, Monocytes (%) (Auto) 8, Eosinophils (%) (Auto) 2, Basophils (%) (Auto) 1, Neutrophils # (Auto) 5.5, Lymphocytes # (Auto) 1.3, Monocytes # (Auto) 0.6, Eosinophils # (Auto) 0.1, Basophils # (Auto) 0.0, Immature Granulocyte # (Auto) 0.0, Sodium Level 140, Potassium Level 4.1, Chloride Level 103, Carbon Dioxide Level 27, Anion Gap 10, Blood Urea Nitrogen 16, Creatinine 0.82, Estimat Glomerular Filtration Rate 67, BUN/Creatinine Ratio 20, Glucose Level 120H, Calcium Level 9.0, Corrected Calcium 9.2, Magnesium Level 2.1, Total Bilirubin 1.0, Aspartate Amino Transf (AST/SGOT) 20, Alanine Aminotransferase (ALT/SGPT) 34, Alkaline Phosphatase 71, Total Protein 6.2L, Albumin 3.7, Phosphorus Level 3.7 Radiology NAME: OMAR GILL [facility] REC#: [id number] PT STATUS: REG ER : 1940 PHYSICIAN: MJ CAIN DO ADMIT DATE: 01/27/21/ER Draft Date of Exam:01/27/21 CHEST 1 VIEW, AP/PA ONLY INDICATION: Atrial fibrillation. Shortness of air. COMPARISON: 07/21/2020. FINDINGS: Single frontal radiographic view of the chest was obtained and demonstrates mrqpffmx-jc-zwehpz cardiomegaly. Pulmonary vasculature is slightly prominent as well. Lungs, however, are clear. Note is made of hyperinflation with flattening of the hemidiaphragms. There is no large effusion or pneumothorax. Osseous structures show no gross acute abnormalities. Sternotomy wires and calcified aortic atherosclerosis are present. IMPRESSION: 1. Bkgvuvub-tf-uirugy cardiomegaly with mild vascular congestion. 2. No evidence of failure or focal infiltrate. 3. Probable background COPD changes. Dictated on workstation # [id number] Dict: 01/27/21 1306 Trans: 01/27/21 1308 [id number] Interpreted by: HALLIE GREENWOOD MD Electronically signed by: ECG Impression ECG Initial ECG Impression: Atrial Fibrillation w/RVR A/P-Cardiology Assessment/Admission Diagnosis Paroxysmal atrial fibrillation - currently a-fib with RVR - first diagnosed July 2020 hospital admission - OAC with Eliquis Minimally elevated troponin (Type 2 LA) - likely secondary to a-fib with RVR Coronary artery disease - history of CABG done in 2000 - cardiac catheterization in June 2015: LAD occluded at the midportion, the distal LAD protected by patent RICE; high diagonal branch stent stent known to be Promus 2.2 x 12 mm placed in 2011; the circumflex had a patent stent in the proximal portion; RCA was occluded proximally protected by patent vein graft to the distal right coronary artery. - Patient had an abnormal stress test in August 2017, attempt for cardiac catheterization failed due to the extensive disease in her thoracic and abdominal aorta. Medical therapy recommended - Echocardiogram of 07-20-[address] Morales showed LVEF 55-65%. LA mod dilated. RA dilated. PASP 30-35 mmHg History of thoracic and abdominal aneurysm - status post repair done by Dr. Emery in [place] in 2012. Peripheral arterial disease - left lower extremity aneurysm, following with [facility] (Dr Emery). Hypertension Hyperlipidemia History of carotid stenosis - followed by Dr. Emery at [facility] CV History of intermittent hypokalemia Discussion and Recomendations PAF - currently a-fib with RVR Minimial troponin elevation, likely Type 2 LA, secondary to a-fib with RVR Continue cardizem gtt for rate control Resume OAC with Eliquis Resume ASA d/t known h/o CAD BB for rate control - adjust as indicated Monitor lab closely Replace electrolytes as indicated Further recs will be based on her hospital course We would like to thank medical services for this consult ISAAK VELASCO Jan 27, 2021 14:58
[2021-01-27] MEDS ORDERED: meTOproloL SUCCINATE 50 MG (TOPROL XL) TAB PO SCH (15:30)
[2021-01-27] MEDS ORDERED: METO50TA7 PO (15:59)
[2021-01-27] MEDS ORDERED: ASPI-1238 PO (15:59)
[2021-01-27] MEDS ORDERED: APIX5TAB PO (16:21)
--- NOTE | 2021-01-27 16:41 | Consultation-Cardiology ---
HPI-Cardiology Cardiology Consultation: Date of Consultation 01/27/21 Time Seen by a Provider: 16:15 Date of Admission Attending Physician Christie White MD Admitting Physician Sorin Jacobs DO Consulting Physician MAARI FOSTER MD, MA, FACP, FACC, FSCAI, CCDS HPI: Chief Complaint: Reason for Card Consult: A-fb with RVR HPI Ms. Gill is a 80 yr old female admitted to ICU 11 from the ED with a-fib with RVR. She reports she has had an occ feeling of palpitations, but typically they last only a few minutes. Today she reports she went to eat with her sister and when leaving the restaurant she began to feel her heart beat fast and hard. She reports she was feeling weak, lightheaded and SOB. No report of syncope or near syncope. No c/o CP. She reports chronic mild to mod bilat ankle swelling, R>L, which is unchanged. She denies missing any medication doses including OAC. She does not report any n/v/d. No c/o fever or chills. She reports she is feeling better at this time. Review of Systems-Cardiology Review of Systems Constitutional: No chills, No fever; lightheadedness Eyes: No vision change Ears/Nose/Throat: No epistaxis, No recent hearing loss Respiratory: As described under HPI Cardiovascular: As described under HPI Gastrointestinal: No constipation, No diarrhea, No nausea, No vomiting Genitourinary: No dysuria, No hematuria Musculoskeletal: no symptoms reported Skin: No rash on exposed areas, No ulcerations on exposed areas Psychiatric/Neurological: anxiety; No depression, No seizure, No focal weakness, No syncope Hematologic: No bleeding abnormalities LRQ-Wqhnar-Xflske Hx Patient Social History Smoking Status: Former Smoker 2nd Hand Smoke Exposure: No Have you traveled recently?: No Alcohol Use?: No Pt feels they are or have been: No Immunizations Up To Date Tetanus Booster (TDap): More than 5yrs Date of Pneumonia Vaccine: Jun 01, 2006 Past Medical History PMH As described under Assessment. Family Medical History Family Medical History: She reports her father and mother both had strokes. She does not report any premature CAD or SCD. Family History: FHx: stroke 19 FATHER 19 MOTHER Allergies and Home Medications Allergies Coded Allergies: NKANo Known Allergies (Verified Allergy, Unknown, 08/29/06) Patient Home Medication List Home Medication List Reviewed: Yes Amlodipine Besylate (Amlodipine Besylate) 5 Mg Tablet, 5 MG PO 1400, (Reported) Entered as Reported by: ROSANA HERNANDEZ on 08/22/17 0940 Last Action: Reviewed Apixaban (Eliquis) 5 Mg Tablet, 5 MG PO BID, (Reported) Entered as Reported by: JOHNNY ARNOLD on 01/27/21 1621 Last Action: Reviewed Aspirin (Aspirin EC) 81 Mg Tablet., 81 MG PO DAILY, (Reported) Entered as Reported by: JOHNNY ARNOLD on 01/27/21 155 Last Action: Reviewed Atorvastatin Calcium (Atorvastatin Calcium) 20 Mg Tablet, 20 MG PO 1400, (Reported) Entered as Reported by: JOHNNY ARNOLD on 07/20/201136 Last Action: Reviewed Cholecalciferol (Vitamin D3) (Vitamin D3) 25 Mcg Capsule, 25 MCG PO DAILY, (Reported) Entered as Reported by: JOHNNY ARNOLD on 07/20/201136 Last Action: Reviewed Lisinopril (Lisinopril) 20 Mg Tablet, 20 MG PO 1400, (Reported) Entered as Reported by: HUNG ZIMMER on 06/08/15 2216 Last Action: Reviewed Metoprolol Succinate (Metoprolol Succinate) 50 Mg Tab.er.24h, 50 MG PO 1400, (Reported) Entered as Reported by: JOHNNY ARNOLD on 01/27/21 155 Last Action: Reviewed Minoxidil (Minoxidil) 10 Mg Tab, 10 MG PO BID, (Reported) Entered as Reported by: ROSANA HERNANDEZ on 08/22/17 0940 Last Action: Reviewed [place]-3S/Dha/Epa/Fish Oil (Fish Oil 1,200 mg Softgel) 1 Each Capsule, 1 EACH PO 1400, (Reported) Entered as Reported by: JOHNNY ARNOLD on 07/20/201136 Last Action: Reviewed Discontinued Medications Apixaban (Eliquis) 5 Mg Tablet, 5 MG PO BID Discontinued Reason: No Longer Taking Prescribed by: YUMIKO SY on 07/23/20 0950 Last Action: Discontinued Aspirin (Aspirin EC) 325 Mg Tablet., 325 MG PO DAILY, (Reported) Discontinued Reason: No Longer Taking Entered as Reported by: JOHNNY ARNODL on 3/15/21 1137 Last Action: Discontinued Metoprolol Succinate (Metoprolol Succinate) 100 Mg Tab.er.24h, 100 MG PO BID Discontinued Reason: No Longer Taking Prescribed by: YUMIKO SY on 07/22/20 1404 Last Action: Discontinued Physical Exam-Cardiology Physical Exam Vital Signs/I&O 01/27/21 01/27/21 01/27/21 01/27/21 12:17 14:45 15:00 15:15 Temp 36.6 Pulse 168 119 123 Resp 20 18 31 B/P (MAP) 161/113 (129) 149/106 139/118 146/105 Pulse Ox 95 97 95 O2 Delivery Room Air Room Air Room Air Room Air 01/27/21 01/27/21 15:30 15:42 Pulse 104 Resp 12 B/P (MAP) 110/89 Pulse Ox 96 98 O2 Delivery Room Air Room Air Capillary Refill : Less Than 3 Seconds Constitutional: AAO x 3, well-developed, well-nourished HEENT: PERRL, hearing is well preserved, oral hygience is good Neck: No carotid bruit; carotid pulses are 2 + bilaterally Respiratory: No accessory muscle use, No respiratory distress; chest expansion is symmetric, chest is bilaterally symmetric, lungs clear to auscultation Cardiovascular: irregularly irregular; No JVD; tachycardia Gastrointestinal: No tender; soft, round, audible bowel sounds Extremities: other (mild right ankle swelling) Neurologic/Psychiatric: grossly intact (moves all extremities) Skin: No rash on exposed areas, No ulcerations on exposed areas Data Review Labs Laboratory Tests 01/27/21 12:27: White Blood Count 10.9, Red Blood Count 4.77, Hemoglobin 13.4, Hematocrit 43, Mean Corpuscular Volume 89, Mean Corpuscular Hemoglobin 28, Mean Corpuscular Hemoglobin Concent 32, Red Cell Distribution Width 15.2H, Platelet Count 188, Mean Platelet Volume 11.6, Immature Granulocyte % (Auto) 0, Neutrophils (%) (Auto) 76H, Lymphocytes (%) (Auto) 15, Monocytes (%) (Auto) 7, Eosinophils (%) (Auto) 1, Basophils (%) (Auto) 1, Neutrophils # (Auto) 8.3H, Lymphocytes # (Auto) 1.6, Monocytes # (Auto) 0.8, Eosinophils # (Auto) 0.1, Basophils # (Auto) 0.1, Immature Granulocyte # (Auto) 0.0, Prothrombin Time 17.5H, INR Comment 1.4, Activated Partial Thromboplast Time 29, Sodium Level 140, Potassium Level 4.4, Chloride Level 107, Carbon Dioxide Level 24, Anion Gap 9, Blood Urea Nitrogen 23H, Creatinine 0.84, Estimat Glomerular Filtration Rate 66, BUN/Creatinine Ratio 27, Glucose Level 127H, Calcium Level 9.1, Corrected Calcium 9.1, Magnesium Level 2.2, Total Bilirubin 0.6, Aspartate Amino Transf (AST/SGOT) 30, Alanine Aminotransferase (ALT/SGPT) 39, Alkaline Phosphatase 75, Total Creatine Kinase 63, Creatine Kinase MB 1.3, Troponin I 0.032H, B-Type Natriuretic Peptide 921.8H, Total Protein 7.3, Albumin 4.0, TSH [place] Testing 1.75 01/27/21 13:32: SARS-CoV-2 RNA (RT-PCR) Not Detected A/P-Cardiology Assessment/Admission Diagnosis Paroxysmal atrial fibrillation - currently a-fib with RVR - first diagnosed July 2020 hospital admission - OAC with Eliquis Minimally elevated troponin (Type 2 [place]) - likely secondary to a-fib with RVR Coronary artery disease - history of CABG done in 2000 - cardiac catheterization in June 2015: LAD occluded at the midportion, the distal LAD protected by patent RICE; high diagonal branch stent stent known to be Promus 2.2 x 12 mm placed in 2011; the circumflex had a patent stent in the proximal portion; RCA was occluded proximally protected by patent vein graft to the distal right coronary artery. - Patient had an abnormal stress test in August 2017, attempt for cardiac catheterization failed due to the extensive disease in her thoracic and abdominal aorta. Medical therapy recommended - Echocardiogram of 07-20-[address] Morales showed LVEF 55-65%. LA mod dilated. RA dilated. PASP 30-35 mmHg History of thoracic and abdominal aneurysm - status post repair done by Dr. Emery in [place] in 2012. Peripheral arterial disease - left lower extremity aneurysm, following with [facility] (Dr Emery). Hypertension Hyperlipidemia History of carotid stenosis - followed by Dr. Emery at [facility] CV History of intermittent hypokalemia Discussion and Recomendations Continue cardizem gtt for rate control Resume OAC with Eliquis Resume ASA d/t known h/o CAD BB for rate control - adjust as indicated Consider elec CV tomorrow if vent rate remains uncontrolled Monitor lab closely Replace electrolytes as indicated Further recs will be based on her hospital course We would like to thank Medical services for this consult AMARI FOSTER MD FACP FAC CCDS Jan 27, 2021 16:41
--- NOTE | 2021-01-27 16:52 | Tele-ICU Consult ---
History of Present Illness History of Present Illness Date Seen by Provider: Jan 27, 2021 Time Seen by Provider: 16:47 Date of Admission 80 F with palpatations was in a fib with V rate 160, given 20 mg IV Cardizem, brought rate to 80's,on maintenance rate of 10 pt awake with no SOB, CP Hx of CABG about 1999, multiple stents no DM, Has HLD, PVD, CAD AAA repair TRAVIS not on CPAP at home Allergies and Home Medications Allergies Coded Allergies: NKANo Known Allergies (Verified Allergy, Unknown, 08/29/06) Home Medications Amlodipine Besylate 5 Mg Tablet, 5 MG PO 1400, (Reported) LAST FILLED 07-23-2020 #90/90 DAY SUPPLY Apixaban 5 Mg Tablet, 5 MG PO BID, (Reported) Aspirin 81 Mg Tablet.dr, 81 MG PO DAILY, (Reported) Atorvastatin Calcium 20 Mg Tablet, 20 MG PO 1400, (Reported) Cholecalciferol (Vitamin D3) 25 Mcg Capsule, 25 MCG PO DAILY, (Reported) Lisinopril 20 Mg Tablet, 20 MG PO 1400, (Reported) Metoprolol Succinate 50 Mg Tab.er.24h, 50 MG PO 1400, (Reported) Minoxidil 10 Mg Tab, 10 MG PO BID, (Reported) [place]-3S/Dha/Epa/Fish Oil 1 Each Capsule, 1 EACH PO 1400, (Reported) Past Medical/Social/Family Hx Patient Social History Tobacco Use?: No Smoking Status: Former Smoker Smokeless Tobacco Frequency: Never a User Use of E-Cig and/or Vaping dev: No Substance use?: No Alcohol Use?: No Pt stated abuse/neglect: No Immunizations Up To Date Influenza Vaccine Up-to-Date: No; Not Current First/Initial COVID19 Vaccinat: UNVACCINATED Tetanus Booster (TDap): Unknown Hepatitis A: No Hepatitis B: No TB Skin Test: Negative Date of Pneumonia Vaccine: Jun 01, 2006 Current Status status: No status: No Advance Directives: No Communicates: Verbally Primary Language: [place] Island[place] Preferred Spoken Language: [place] Is interpretation needed?: No Additional sensory deficits: N/A Implanted or Applied Medical D: Orthopedic hardware, Stents Review of Systems Constitutional: see HPI EENTM: see HPI Respiratory: see HPI Cardiovascular: see HPI Gastrointestinal: see HPI Genitourinary: see HPI Musculoskeletal: see HPI Skin: see HPI Psychiatric/Neurological: See HPI Sepsis Event Evaluation Height, Weight, BMI Height: 5'0.00" Weight: 140lbs. 0.0oz. 63.248267os; 25.35 BMI Method:Stated Exam Exam Patient acknowledged, consented, and participated in this virtual visit which was conducted using real time audio/video Vital Signs Date Time Temp Pulse Resp B/P (MAP) Pulse Ox O2 Delivery O2 Flow Rate FiO2 01/27/21 15:42 98 Room Air 01/27/21 15:30 104 12 110/89 96 Room Air 01/27/21 15:15 123 31 146/105 95 Room Air 01/27/21 15:10 147 01/27/21 15:00 36.6 139/118 Room Air 01/27/21 14:45 119 18 149/106 97 Room Air 01/27/21 12:17 168 20 161/113 (129) 95 Room Air Height & Weight Height: 5'0.00" Weight: 140lbs. 0.0oz. 63.390527nc; 25.35 BMI Method:Stated General Appearance: No Apparent Distress, WD/WN, Other (WALKS IN ON HER OWN WITHOUT DIFFICULTY; SMILING, PLEASANT, TALKATIVE. 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 Critical Care: Critically Ill Patient Time spent with patient (mins): JOSE REED MD Jan 27, 2021 16:52
[2021-01-27] MEDS: APIXABAN 5 MG (ELIQUIS) TABLET PO SCH (19:24)
[2021-01-28 05:08] LABS: BASOPHILS % (AUTO) 1 % (0-10); EOSINOPHILS # (AUTO) 0.1 10^3/uL (0.0-0.3); EOSINOPHILS % (AUTO) 2 % (0-10); HEMATOCRIT 39 % (35-52); HEMOGLOBIN 12.4 g/dL (11.5-16.0); LYMPHOCYTES # (AUTO) 1.3 10^3/uL (1.0-4.0); LYMPHOCYTES % (AUTO) 17 % (12-44); MEAN CORPUSCULAR HEMOGLOBIN 27 pg (25-34); MEAN CORPUSCULAR HGB CONC 32 g/dL (32-36); MEAN CORPUSCULAR VOLUME 86 fL (80-99); MEAN PLATELET VOLUME 11.9 fL (9.0-12.2); MONOCYTES # (AUTO) 0.6 10^3/uL (0.0-1.0); MONOCYTES % (AUTO) 8 % (0-12); NEUTROPHILS # (AUTO) 5.5 10^3/uL (1.8-7.8); NEUTROPHILS % (AUTO) 73 % (42-75); PLATELET COUNT 181 10^3/uL (130-400); WHITE BLOOD COUNT 7.6 10^3/uL (4.3-11.0)
[2021-01-28 05:35] LABS: ALBUMIN 3.7 GM/DL (3.2-4.5); POTASSIUM 4.1 MMOL/L (3.6-5.0)
[2021-01-28 05:37] LABS: TOTAL PROTEIN 6.2 GM/DL (6.4-8.2)
[2021-01-28 05:41] LABS: CREATININE SERUM 0.82 MG/DL (0.60-1.30); PHOSPHORUS 3.7 MG/DL (2.3-4.7)
[2021-01-28 05:44] LABS: MAGNESIUM 2.1 MG/DL (1.6-2.4)
[2021-01-28] MEDS: VITAMIN D3 25 MCG (1,000 UNITS) TABLET PO SCH (07:56)
[2021-01-28] MEDS: ASPIRIN 81 MG CHEW (CHILDREN'S ASA) PO SCH (07:56)
[2021-01-28] MEDS: APIXABAN 5 MG (ELIQUIS) TABLET PO SCH ×2 (07:56→20:34)
--- NOTE | 2021-01-28 08:32 | Progress Note - Cardiology ---
Cardiology SOAP Progress Note Subjective: Lying in bed Family x 2 at the bedside No c/o CP or SOB Remains in a-fib Objective: I&O/Vital Signs 01/28/21 01/28/21 01/28/21 01/28/21 01:00 01:00 02:00 03:00 Pulse 70 80 81 88 Resp 16 22 17 B/P (MAP) 134/82 129/84 135/86 Pulse Ox 91 95 92 O2 Delivery Room Air Room Air Room Air 01/28/21 01/28/21 01/28/21 01/28/21 03:50 03:55 04:00 05:00 Temp 36.5 Pulse 84 86 Resp 18 16 B/P (MAP) 125/88 126/91 Pulse Ox 95 94 92 O2 Delivery Room Air Room Air Room Air Room Air 01/28/21 01/28/21 01/28/21 01/28/21 06:00 06:40 07:00 07:58 Temp 36.8 Pulse 96 96 93 Resp 16 14 B/P (MAP) 150/95 149/118 Pulse Ox 92 93 O2 Delivery Room Air Room Air 01/28/21 01/28/21 01/28/21 01/28/21 08:00 08:46 09:00 10:00 Pulse 130 105 66 Resp 22 23 16 B/P (MAP) 155/109 136/99 164/91 Pulse Ox 96 93 94 92 O2 Delivery Room Air Room Air Room Air Room Air 01/28/21 01/28/21 01/28/21 11:00 12:00 12:00 Temp 36.5 Pulse 66 Resp 16 B/P (MAP) 159/97 Pulse Ox 95 93 O2 Delivery Room Air Room Air 01/27/21 23:59 Intake Total 500 ml Output Total 1475 ml Balance -975 ml Weight (Pounds): 140 Weight (Ounces): 0.0 Weight (Calculated Kilograms): 63.891284 Constitutional: AAO x 3, well-developed, well-nourished Respiratory: No accessory muscle use, No respiratory distress; chest expansion is symmetric, chest is bilaterally symmetric, lungs clear to auscultation Cardiovascular: irregularly irregular; No JVD; tachycardia Gastrointestional: No tender; soft, round, audible bowel sounds Extremities: other (mild right ankle swelling) Neurologic/Psychiatric: grossly intact (moves all extremities) Skin: No rash on exposed areas, No ulcerations on exposed areas Results/Procedures: Labs Laboratory Tests 01/27/21 12:27: White Blood Count 10.9, Red Blood Count 4.77, Hemoglobin 13.4, Hematocrit 43, Mean Corpuscular Volume 89, Mean Corpuscular Hemoglobin 28, Mean Corpuscular Hemoglobin Concent 32, Red Cell Distribution Width 15.2H, Platelet Count 188, Mean Platelet Volume 11.6, Immature Granulocyte % (Auto) 0, Neutrophils (%) (Auto) 76H, Lymphocytes (%) (Auto) 15, Monocytes (%) (Auto) 7, Eosinophils (%) (Auto) 1, Basophils (%) (Auto) 1, Neutrophils # (Auto) 8.3H, Lymphocytes # (Auto) 1.6, Monocytes # (Auto) 0.8, Eosinophils # (Auto) 0.1, Basophils # (Auto) 0.1, Immature Granulocyte # (Auto) 0.0, Prothrombin Time 17.5H, INR Comment 1.4, Activated Partial Thromboplast Time 29, Sodium Level 140, Potassium Level 4.4, Chloride Level 107, Carbon Dioxide Level 24, Anion Gap 9, Blood Urea Nitrogen 23H, Creatinine 0.84, Estimat Glomerular Filtration Rate 66, BUN/Creatinine Ratio 27, Glucose Level 127H, Calcium Level 9.1, Corrected Calcium 9.1, Magnesium Level 2.2, Total Bilirubin 0.6, Aspartate Amino Transf (AST/SGOT) 30, Alanine Aminotransferase (ALT/SGPT) 39, Alkaline Phosphatase 75, Total Creatine Kinase 63, Creatine Kinase MB 1.3, Troponin I 0.032H, B-Type Natriuretic Peptide 921.8H, Total Protein 7.3, Albumin 4.0, TSH [place] Testing 1.75 01/27/21 13:32: SARS-CoV-2 RNA (RT-PCR) Not Detected 01/28/21 04:50: White Blood Count 7.6, Red Blood Count 4.57, Hemoglobin 12.4, Hematocrit 39, Mean Corpuscular Volume 86, Mean Corpuscular Hemoglobin 27, Mean Corpuscular Hem oglobin Concent 32, Red Cell Distribution Width 15.1H, Platelet Count 181, Mean Platelet Volume 11.9, Immature Granulocyte % (Auto) 0, Neutrophils (%) (Auto) 73, Lymphocytes (%) (Auto) 17, Monocytes (%) (Auto) 8, Eosinophils (%) (Auto) 2, Basophils (%) (Auto) 1, Neutrophils # (Auto) 5.5, Lymphocytes # (Auto) 1.3, Monocytes # (Auto) 0.6, Eosinophils # (Auto) 0.1, Basophils # (Auto) 0.0, Immature Granulocyte # (Auto) 0.0, Sodium Level 140, Potassium Level 4.1, Chloride Level 103, Carbon Dioxide Level 27, Anion Gap 10, Blood Urea Nitrogen 16, Creatinine 0.82, Estimat Glomerular Filtration Rate 67, BUN/Creatinine Ratio 20, Glucose Level 120H, Calcium Level 9.0, Corrected Calcium 9.2, Magnesium Level 2.1, Total Bilirubin 1.0, Aspartate Amino Transf (AST/SGOT) 20, Alanine Aminotransferase (ALT/SGPT) 34, Alkaline Phosphatase 71, Total Protein 6.2L, Albumin 3.7, Phosphorus Level 3.7 A/P: Assessment: Paroxysmal atrial fibrillation - currently a-fib with RVR - first diagnosed July 2020 hospital admission - TSH WNL on 01-28-21 - OAC with Eliquis Minimally elevated troponin (Type 2 [place]) - likely secondary to a-fib with RVR Coronary artery disease - history of CABG done in 2000 - cardiac catheterization in June 2015: LAD occluded at the midportion, the distal LAD protected by patent RICE; high diagonal branch stent stent known to be Promus 2.2 x 12 mm placed in 2011; the circumflex had a patent stent in the proximal portion; RCA was occluded proximally protected by patent vein graft to the distal right coronary artery. - Patient had an abnormal stress test in August 2017, attempt for cardiac catheterization failed due to the extensive disease in her thoracic and abdominal aorta. Medical therapy recommended - Echocardiogram of 07-20-[address] Morales showed LVEF 55-65%. LA mod dilated. RA dilated. PASP 30-35 mmHg History of thoracic and abdominal aneurysm - status post repair done by Dr. Emery in [place] in 2012. Peripheral arterial disease - left lower extremity aneurysm, following with [facility] (Dr Emery). Hypertension Hyperlipidemia History of carotid stenosis - followed by Dr. Emery at [facility] CV History of intermittent hypokalemia Plan: Continue cardizem gtt for rate control Continue OAC with Eliquis Resume ASA d/t known h/o CAD BB for rate control - adjust as indicated Elec CV today - vent rate not well controlled - varies from 90's-140's Monitor lab closely Replace electrolytes as indicated ISAAK VELASCO Jan 28, 2021 08:32
--- NOTE | 2021-01-28 09:06 | Diagnostic Imaging Report ---
EXAMINATION: Chest radiograph, portable AP view. DATE: 01/28/2021 4:40 AM INDICATION: 80-year-old female, shortness of breath. COMPARISON: January 27, 2021. FINDINGS: There are median sternotomy wires. The aorta is tortuous. Heart size and mediastinal contours are unchanged. There is no identified pneumothorax. There is no large pleural effusion. There is no identified interval focal airspace consolidation. There are right carotid vascular calcifications. IMPRESSION: 1. Redemonstrated cardiomegaly without identified interval acute cardiopulmonary abnormality. Dictated by: Dictated on workstation # [id number]
[2021-01-28] MEDS ORDERED: NS IV 500 ML 500 ML ONE (09:17)
[2021-01-28] MEDS ORDERED: proPOfol 200 MG/20 ML (DIPRIVAN) VIAL IV ONE (09:23)
--- NOTE | 2021-01-28 09:27 | History & Physical-Hospitalist ---
History of Present Illness HPI/Chief Complaint Pt is a 80yoCF witha PMH of CAD s/p CABG, HTN, and a-fib who presented to the ER due to her heart racing. She has just eating at [employer] and felt like a brick hit her chest and it was pounding and racing. She decided to seek evaluation in the ER and was found to be in a fib with rvr with a rate in matteo 160s. She was started on a cardizem gtt and admitted to the ICU. This morning she reports feeling much better. Her heart rate was down overnight to the 80s but is back up to the 120s currently. She denies any symptoms though and is requesting coffee. Source: patient Date Seen 01/28/21 Time Seen by a Provider: 07:30 Attending Physician Kate Carmichael MD PCP Sorin Jacobs DO Referring Physician Date of Admission Jan 27, 2021 at 12:55 Home Medications & Allergies Home Medications Reviewed patient Home Medication Reconciliation performed by pharmacy medication reconciliations lock technician and/or nursing. Patients Allergies have been reviewed. Allergies Allergies Coded Allergies NKANo Known Allergies (Verified Allergy, Unknown, 08/29/06) Past Tllddbi-Ccbjdw-Kgrdhh Hx Patient Social History Employed/Student: retired Tobacco Use?: No Smoking Status: Former Smoker Smokeless Tobacco Frequency: Never a User Use of E-Cig and/or Vaping dev: No Substance use?: No Alcohol Use?: No Pt feels they are or have been: No Immunizations Up To Date First/Initial COVID19 Vaccinat: UNVACCINATED Tetanus Booster (TDap): Unknown Hepatitis A: No Hepatitis B: No PED Vaccines UTD: No Date of Pneumonia Vaccine: Jun 01, 2006 Seasonal Allergies Seasonal Allergies: No Current Status status: No status: No Advance Directives: No Communicates: Verbally Primary Language: Romanian Preferred Spoken Language: Romanian Is interpretation needed?: No Additional sensory deficits: N/A Implanted or Applied Medical D: Orthopedic hardware, Stents Past Medical History Surgeries: Abdominal, Cardiac, CABG, Coronary Stent, Tonsillectomy, Vascular Rosen rgery Sleep Apnea Currently Using CPAP: No Currently Using BIPAP: No Atrial Fibrillation, Coronary Artery Disease, Heart Attack, High Cholesterol, Hypertension, Peripheral Vascular DRAPERY SEWER HAND History: Menopausal Anxiety Blood Disorders: No Adverse Reaction/Blood Tranf: No Family Medical History Reviewed Nursing Family Hx FHx: stroke 19 FATHER 19 MOTHER No Pertinent Family Hx Review of Systems Constitutional: No fever EENTM: no symptoms reported Respiratory: No cough, No short of breath Cardiovascular: see HPI Gastrointestinal: no symptoms reported Musculoskeletal: no symptoms reported Psychiatric/Neurological: No Symptoms Reported All Other Systems Reviewed Negative Unless Noted: Yes Physical Exam Physical Exam Vital Signs Vital Signs - First Documented 01/27/21 01/27/21 12:17 15:00 Temp 36.6 Pulse 168 Resp 20 B/P (MAP) 161/113 (129) Pulse Ox 95 O2 Delivery Room Air Capillary Refill : Less Than 3 Seconds Height, Weight, BMI Height: 5'0.00" Weight: 140lbs. 0.0oz. 63.399472jh; 25.35 BMI Method:Stated General Appearance: No Apparent Distress, WD/WN HEENT: PERRL/EOMI, Moist Mucous Membranes Neck: Normal Inspection, Supple Respiratory: Lungs Clear, No Accessory Muscle Use, No Respiratory Distress Cardiovascular: Regular Rate, Rhythm, No Murmur Gastrointestinal: Normal Bowel Sounds, Non Tender, Soft Extremity: Normal Capillary Refill, No Calf Tenderness, No Pedal Edema Neurologic/Psychiatric: Alert, Oriented x3 Skin: Normal Color, Warm/Dry Results Results/Procedures Labs Laboratory Tests 01/27/21 12:27 01/28/21 04:50 Patient resulted labs reviewed. Imaging: Reviewed Imaging Report Imaging [facility] [place] NAME: OMAR MORRIS [facility] REC#: [id number] PT STATUS: [facility] ER : 1940 PHYSICIAN: MJ CAIN DO ADMIT DATE: 01/27/21/ER Draft Date of Exam:01/27/21 CHEST 1 VIEW, AP/PA ONLY INDICATION: Atrial fibrillation. Shortness of air. COMPARISON: 07/21/2020. FINDINGS: Single frontal radiographic view of the chest was obtained and demonstrates zntajzia-kw-norhwx cardiomegaly. Pulmonary vasculature is slightly prominent as well. Lungs, however, are clear. Note is made of hyperinflation with flattening of the hemidiaphragms. There is no large effusion or pneumothorax. Osseous structures show no gross acute abnormalities. Sternotomy wires and calcified aortic atherosclerosis are present. IMPRESSION: 1. Bxaewhdg-il-wdujgw cardiomegaly with mild vascular congestion. 2. No evidence of failure or focal infiltrate. 3. Probable background COPD changes. Dictated on workstation # [id number] Dict: 01/27/21 1306 Trans: 01/27/21 1308 [id number] Interpreted by: HALLIE GREENWOOD MD Electronically signed by: Assessment/Plan Admission Diagnosis A-fib with RVR Admission Status: Inpatient Order (span 2 midnights) Reason for Inpatient Admission: see below Assessment and Plan A-fib with RVR NSTEMI- Type II [place] Currently on cardizem gtt Eliquis for stroke ppx Plan for cardioversion today per cardiology note telemetry Cardiology consulted, appreciate recs HTN HLD continue home meds as able PAD thoracic and abd aneurysm Carotid stenosis Follows with Vascular Surgery ( Dr Emery), no acute needs Continue meds AKTE CARMICHAEL MD Jan 28, 2021 09:27
--- NOTE | 2021-01-28 09:44 | Progress Note - Cardiology ---
Cardiology SOAP Progress Note Subjective: Persistent palp (prior to elec CV this am) No cp or syncope No shortness of breath at rest No n/v/d Gen malaise and weakness present Objective: I&O/Vital Signs 01/27/21 01/27/21 01/28/21 01/28/21 22:00 23:00 00:00 00:00 Pulse 86 73 80 Resp 17 17 14 B/P (MAP) 115/57 111/70 135/71 Pulse Ox 92 93 94 91 O2 Delivery Room Air Room Air Room Air Room Air 01/28/21 01/28/21 01/28/21 01/28/21 00:00 01:00 01:00 02:00 Temp 36.9 Pulse 70 80 81 Resp 16 22 B/P (MAP) 134/82 129/84 Pulse Ox 91 95 O2 Delivery Room Air Room Air Room Air 01/28/21 01/28/21 01/28/21 01/28/21 03:00 03:50 03:55 04:00 Temp 36.5 Pulse 88 84 Resp 17 18 B/P (MAP) 135/86 125/88 Pulse Ox 92 95 94 O2 Delivery Room Air Room Air Room Air Room Air 01/28/21 01/28/21 01/28/21 01/28/21 05:00 06:00 07:58 08:46 Temp 36.8 Pulse 86 96 Resp 16 16 B/P (MAP) 126/91 150/95 Pulse Ox 92 92 93 O2 Delivery Room Air Room Air Room Air 01/28/21 00:00 Intake Total 500 ml Output Total 1475 ml Balance -975 ml Weight (Pounds): 140 Weight (Ounces): 0.0 Weight (Calculated Kilograms): 63.364366 Constitutional: AAO x 3, well-developed, well-nourished Respiratory: No accessory muscle use, No respiratory distress; chest expansion is symmetric, chest is bilaterally symmetric, lungs clear to auscultation Cardiovascular: irregularly irregular; No JVD; tachycardia Gastrointestional: No tender; soft, round, audible bowel sounds Extremities: other (mild right ankle swelling) Neurologic/Psychiatric: grossly intact (moves all extremities) Skin: No rash on exposed areas, No ulcerations on exposed areas Results/Procedures: Labs Laboratory Tests 01/27/21 12:27: White Blood Count 10.9, Red Blood Count 4.77, Hemoglobin 13.4, Hematocrit 43, Mean Corpuscular Volume 89, Mean Corpuscular Hemoglobin 28, Mean Corpuscular Hemoglobin Concent 32, Red Cell Distribution Width 15.2H, Platelet Count 188, Mean Platelet Volume 11.6, Immature Granulocyte % (Auto) 0, Neutrophils (%) (Auto) 76H, Lymphocytes (%) (Auto) 15, Monocytes (%) (Auto) 7, Eosinophils (%) (Auto) 1, Basophils (%) (Auto) 1, Neutrophils # (Auto) 8.3H, Lymphocytes # (Auto) 1.6, Monocytes # (Auto) 0.8, Eosinophils # (Auto) 0.1, Basophils # (Auto) 0.1, Immature Granulocyte # (Auto) 0.0, Prothrombin Time 17.5H, INR Comment 1.4, Activated Partial Thromboplast Time 29, Sodium Level 140, Potassium Level 4.4, Chloride Level 107, Carbon Dioxide Level 24, Anion Gap 9, Blood Urea Nitrogen 23H, Creatinine 0.84, Estimat Glomerular Filtration Rate 66, BUN/Creatinine Ratio 27, Glucose Level 127H, Calcium Level 9.1, Corrected Calcium 9.1, Magnesium Level 2.2, Total Bilirubin 0.6, Aspartate Amino Transf (AST/SGOT) 30, Alanine Aminotransferase (ALT/SGPT) 39, Alkaline Phosphatase 75, Total Creatine Kinase 63, Creatine Kinase MB 1.3, Troponin I 0.032H, B-Type Natriuretic Peptide 921.8H, Total Protein 7.3, Albumin 4.0, TSH [place] Testing 1.75 01/27/21 13:32: SARS-CoV-2 RNA (RT-PCR) Not Detected 01/28/21 04:50: White Blood Count 7.6, Red Blood Count 4.57, Hemoglobin 12.4, Hematocrit 39, Mean Corpuscular Volume 86, Mean Corpuscular Hemoglobin 27, Mean Corpuscular Hemoglobin Concent 32, Red Cell Distribution Width 15.1H, Platelet Count 181, Me an Platelet Volume 11.9, Immature Granulocyte % (Auto) 0, Neutrophils (%) (Auto) 73, Lymphocytes (%) (Auto) 17, Monocytes (%) (Auto) 8, Eosinophils (%) (Auto) 2, Basophils (%) (Auto) 1, Neutrophils # (Auto) 5.5, Lymphocytes # (Auto) 1.3, Monocytes # (Auto) 0.6, Eosinophils # (Auto) 0.1, Basophils # (Auto) 0.0, Immature Granulocyte # (Auto) 0.0, Sodium Level 140, Potassium Level 4.1, Chloride Level 103, Carbon Dioxide Level 27, Anion Gap 10, Blood Urea Nitrogen 16, Creatinine 0.82, Estimat Glomerular Filtration Rate 67, BUN/Creatinine Ratio 20, Glucose Level 120H, Calcium Level 9.0, Corrected Calcium 9.2, Magnesium Level 2.1, Total Bilirubin 1.0, Aspartate Amino Transf (AST/SGOT) 20, Alanine Aminotransferase (ALT/SGPT) 34, Alkaline Phosphatase 71, Total Protein 6.2L, Albumin 3.7, Phosphorus Level 3.7 A/P: Assessment: Paroxysmal atrial fibrillation - continuing a-fib with RVR, treated with elec CV on 01/28/21 - first diagnosed July 2020 hospital admission - TSH WNL on 01-28-21 - OAC with Eliquis Minimally elevated troponin (Type 2 [place]) - likely secondary to a-fib with RVR Coronary artery disease - history of CABG done in 2000 - cardiac catheterization in June 2015: LAD occluded at the midportion, the distal LAD protected by patent RICE; high diagonal branch stent stent known to be Promus 2.2 x 12 mm placed in 2011; the circumflex had a patent stent in the proximal portion; RCA was occluded proximally protected by patent vein graft to the distal right coronary artery. - Patient had an abnormal stress test in August 2017, attempt for cardiac catheterization failed due to the extensive disease in her thoracic and abdominal aorta. Medical therapy recommended - Echocardiogram of 07-20-[address] Morales showed LVEF 55-65%. LA mod dilated. RA dilated. PASP 30-35 mmHg History of thoracic and abdominal aneurysm - status post repair done by Dr. Emery in [place] in 2012. Peripheral arterial disease - left lower extremity aneurysm, following with [facility] (Dr Emery). Hypertension Hyperlipidemia History of carotid stenosis - followed by Dr. Emery at [facility] History of intermittent hypokalemia Plan: Because of continuing uncontrolled A Fib (despite meds) we proceeded with elec CV after having discussed this fully with her and having obtained an informed consent Change Cardizem gtt to oral long-acting Cardizem Continue OAC with Eliquis Continue ASA Continue BB for rate control - adjust as indicated Monitor lab closely Replace electrolytes as indicated AMARI FOSTER MD FACP FAC CCDS Jan 28, 2021 09:44
[2021-01-28] MEDS ORDERED: meTOproloL SUCCINATE 50 MG (TOPROL XL) TAB PO ONE (12:30)
--- NOTE | 2021-01-28 12:59 | OPERATIVE REPORT ---
DATE OF SERVICE: 01/28/2021 PREOPERATIVE DIAGNOSIS: Symptomatic atrial fibrillation with a rapid ventricular response. POSTOPERATIVE DIAGNOSIS: Sinus rhythm. PROCEDURE: External electrical cardioversion. The patient is a 80-year-old lady who presented with symptomatic atrial fibrillation with a rapid ventricular response. This remained uncontrolled despite medications and she continued to remain symptomatic. External electrical cardioversion was carried out after having obtained an informed consent. She has an oral anticoagulation that she has been taking regularly for several months. She has not missed any doses. Today, short-acting anesthesia was provided by the nurse appraiser timber and we delivered a synchronized 120 joule biphasic shock through external patches, which restored sinus rhythm. She tolerated the procedure well. Job ID: [id number] DocumentID: [id number] Dictated Date: 01/28/2021 09:45:50 Per Diem Date: 01/28/2021 12:58:40 Dictated By: AMARI FOSTER MD, MA, FACP, FACC,
[2021-01-28] MEDS: lisINopril 20 MG (PRINIVIL) TABLET PO SCH (13:06)
--- NOTE | 2021-01-28 13:21 | Anesthesia-General Post-Op ---
MAC Patient Condition Mental Status/LOC: Same as Preop Cardiovascular: Satisfactory Nausea/Vomiting: Absent Respiratory: Satisfactory Pain: Controlled Complications: Absent Post Op Complications Complications None Follow Up Care/Instructions Patient Instructions None needed. Anesthesiology Discharge Order Discharge Order Patient is doing well, no complaints, stable vital signs, no apparent adverse anesthesia problems. No complications reported per nursing. KAMRYN CRABTREE CRNA Jan 28, 2021 13:21
[2021-01-28] MEDS: meTOproloL SUCCINATE 50 MG (TOPROL XL) TAB PO SCH (20:34)
[2021-01-29 05:11] LABS: BASOPHILS % (AUTO) 0 % (0-10); EOSINOPHILS # (AUTO) 0.2 10^3/uL (0.0-0.3); EOSINOPHILS % (AUTO) 2 % (0-10); HEMATOCRIT 39 % (35-52); HEMOGLOBIN 12.5 g/dL (11.5-16.0); LYMPHOCYTES # (AUTO) 1.2 10^3/uL (1.0-4.0); LYMPHOCYTES % (AUTO) 13 % (12-44); MEAN CORPUSCULAR HEMOGLOBIN 28 pg (25-34); MEAN CORPUSCULAR HGB CONC 32 g/dL (32-36); MEAN CORPUSCULAR VOLUME 86 fL (80-99); MEAN PLATELET VOLUME 11.7 fL (9.0-12.2); MONOCYTES # (AUTO) 0.7 10^3/uL (0.0-1.0); MONOCYTES % (AUTO) 7 % (0-12); NEUTROPHILS # (AUTO) 7.1 10^3/uL (1.8-7.8); NEUTROPHILS % (AUTO) 78 % (42-75); PLATELET COUNT 177 10^3/uL (130-400); WHITE BLOOD COUNT 9.1 10^3/uL (4.3-11.0)
[2021-01-29 05:26] LABS: ALBUMIN 3.6 GM/DL (3.2-4.5); POTASSIUM 4.2 MMOL/L (3.6-5.0)
[2021-01-29 05:27] LABS: CALCIUM 8.8 MG/DL (8.5-10.1)
[2021-01-29 05:29] LABS: TOTAL PROTEIN 6.3 GM/DL (6.4-8.2)
[2021-01-29 05:32] LABS: CREATININE SERUM 0.8 MG/DL (0.60-1.30); PHOSPHORUS 3.2 MG/DL (2.3-4.7)
[2021-01-29 05:35] LABS: MAGNESIUM 2.1 MG/DL (1.6-2.4)
[2021-01-29] MEDS: APIXABAN 5 MG (ELIQUIS) TABLET PO SCH (08:11)
[2021-01-29] MEDS: meTOproloL SUCCINATE 50 MG (TOPROL XL) TAB PO SCH (08:11)
[2021-01-29] MEDS: lisINopril 20 MG (PRINIVIL) TABLET PO SCH (08:11)
[2021-01-29] MEDS: ASPIRIN 81 MG CHEW (CHILDREN'S ASA) PO SCH (08:11)
[2021-01-29] MEDS: VITAMIN D3 25 MCG (1,000 UNITS) TABLET PO SCH (08:11)
--- NOTE | 2021-01-29 08:35 | Discharge Summary ---
Diagnosis/Chief Complaint Date of Admission Jan 27, 2021 at 12:55 Date of Discharge Discharge Date: Jan 29, 2021 Admission Diagnosis A-fib with RVR Primary Care Lian Jacobs DO Discharge Summary Discharge Physical Exam Allergies: Coded Allergies: NKANo Known Allergies (Verified Allergy, Unknown, 08/29/06) Vitals & I&Os Vital Signs Date Time Temp Pulse Resp B/P (MAP) Pulse Ox O2 Delivery O2 Flow Rate FiO2 01/29/21 07:35 36.7 01/29/21 07:00 68 01/29/21 04:00 24 180/109 99 Room Air 2.00 General Appearance: No Apparent Distress, WD/WN Cardiovascular: Regular Rate, Rhythm, No Murmur Gastrointestinal: Normal Bowel Sounds, Non Tender, Soft Neurologic/Psychiatric: Alert, Oriented x3 Hospital Course Patient was admitted to the hospital due to atrial fibrillation with rapid ventricular rate. She was treated with a Cardizem drip without improvement in her rate and she remained in A. fib. Cardiology was consulted and performed a cardioversion. This restored her to sinus rhythm. She feels much better and had an otherwise uneventful hospital stay. She is to follow up with Dr Jacobs and Dr Macedo to follow up this hospital stay. Labs (last 24 hrs) Laboratory Tests 01/29/21 04:45: White Blood Count 9.1, Red Blood Count 4.54, Hemoglobin 12.5, Hematocrit 39, Mean Corpuscular Volume 86, Mean Corpuscular Hemoglobin 28, Mean Corpuscular Hemoglobin Concent 32, Red Cell Distribution Width 14.6H, Platelet Count 177, Mean Platelet Volume 11.7, Immature Granulocyte % (Auto) 0, Neutrophils (%) (Auto) 78H, Lymphocytes (%) (Auto) 13, Monocytes (%) (Auto) 7, Eosinophils (%) (Auto) 2, Basophils (%) (Auto) 0, Neutrophils # (Auto) 7.1, Lymphocytes # (Auto) 1.2, Monocytes # (Auto) 0.7, Eosinophils # (Auto) 0.2, Basophils # (Auto) 0.0, Immature Granulocyte # (Auto) 0.0, Sodium Level 138, Potassium Level 4.2, Chloride Level 104, Carbon Dioxide Level 23, Anion Gap 11, Blood Urea Nitrogen 11, Creatinine 0.80, Estimat Glomerular Filtration Rate 69, BUN/Creatinine Ratio 14, Glucose Level 112H, Calcium Level 8.8, Corrected Calcium 9.1, Phosphorus Level 3.2, Magnesium Level 2.1, Total Bilirubin 1.0, Aspartate Amino Transf (AST/SGOT) 16, Alanine Aminotransferase (ALT/SGPT) 27, Alkaline Phosphatase 76, Total Protein 6.3L, Albumin 3.6 Microbiology 01/27/21 MRSA Screen - Final, Complete MRSA not isolated Patient resulted labs reviewed. Pending Labs Laboratory Tests 01/29/21 04:45: White Blood Count 9.1, Red Blood Count 4.54, Hemoglobin 12.5, Hematocrit 39, Mean Corpuscular Volume 86, Mean Corpuscular Hemoglobin 28, Mean Corpuscular Hem oglobin Concent 32, Red Cell Distribution Width 14.6, Platelet Count 177, Mean Platelet Volume 11.7, Immature Granulocyte % (Auto) 0, Neutrophils (%) (Auto) 78, Lymphocytes (%) (Auto) 13, Monocytes (%) (Auto) 7, Eosinophils (%) (Auto) 2, Basophils (%) (Auto) 0, Neutrophils # (Auto) 7.1, Lymphocytes # (Auto) 1.2, Monocytes # (Auto) 0.7, Eosinophils # (Auto) 0.2, Basophils # (Auto) 0.0, Immature Granulocyte # (Auto) 0.0, Sodium Level 138, Potassium Level 4.2, Chloride Level 104, Carbon Dioxide Level 23, Anion Gap 11, Blood Urea Nitrogen 11, Creatinine 0.80, Estimat Glomerular Filtration Rate 69, BUN/Creatinine Ratio 14, Glucose Level 112, Calcium Level 8.8, Corrected Calcium 9.1, Phosphorus Level 3.2, Magnesium Level 2.1, Total Bilirubin 1.0, Aspartate Amino Transf (AST/SGOT) 16, Alanine Aminotransferase (ALT/SGPT) 27, Alkaline Phosphatase 76, Total Protein 6.3, Albumin 3.6 Imaging: Reviewed Imaging Report Discussion & Recommendations Discharge Planning: >30 minutes discharge planning Discharge Home Medications: Active Scripts Active Reported Eliquis (Apixaban) 5 Mg Tablet 5 Mg PO BID Aspirin EC (Aspirin) 81 Mg Tablet.dr 81 Mg PO DAILY Metoprolol Succinate 50 Mg Tab.er.24h 50 Mg PO 1400 Fish Oil 1,200 mg Softgel ([place]-3S/Dha/Epa/Fish Oil) 1 Each Capsule 1 Each PO 1 400 Vitamin D3 (Cholecalciferol (Vitamin D3)) 25 Mcg Capsule 25 Mcg PO DAILY Atorvastatin Calcium 20 Mg Tablet 20 Mg PO 1400 Amlodipine Besylate 5 Mg Tablet 5 Mg PO 1400 LAST FILLED 07-23-2020 #90/90 DAY SUPPLY Minoxidil 10 Mg Tab 10 Mg PO BID Lisinopril 20 Mg Tablet 20 Mg PO 1400 Instructions to patient/family Please see electronic discharge instructions given to patient. Copy Copies To 1: LIAN JACOBS KATELYN M MD Jan 29, 2021 08:35
--- NOTE | 2021-01-29 08:50 | Discharge Inst-Simple/Standard ---
Discharge Inst-Standard Discharge Medications New, Converted or Re-Newed RX: Transmitted to Pharmacy Patient Instructions/Follow Up Plan of Care/Instructions/FU: Please continue to take your medications as written. Please follow up with your primary care doctor to follow up this hospital stay. Activity as Tolerated: Yes Discharge Diet: No Restrictions Return to The Hospital For: Chest pain, shortness of breath, racing heart rate, fever, confusion, wekaness, if you feel you are getting worse. KATE CARMICHAEL MD Jan 29, 2021 08:50
[2021-01-29] MEDS ORDERED: MTP100TCR PO (09:47)
[2021-01-29] MEDS ORDERED: DILT240C91 PO (09:47)
--- NOTE | 2021-01-29 10:42 | Progress Note - Cardiology ---
Cardiology SOAP Progress Note Subjective: No cp or palp or syncope Some gen malaise and weakness, albeit improving No n/v/d Objective: I&O/Vital Signs 01/28/21 01/29/21 01/29/21 01/29/21 23:29 01:00 04:00 07:00 Temp 36.7 36.4 Pulse 67 70 70 68 Resp 18 24 B/P (MAP) 159/64 180/109 Pulse Ox 95 99 O2 Delivery Nasal Cannula Room Air O2 Flow Rate 3.00 2.00 01/29/21 01/29/21 07:35 09:27 Temp 36.7 Pulse Ox 93 O2 Delivery Room Air 01/28/21 23:59 Intake Total 1380 ml Output Total 850 ml Balance 530 ml Weight (Pounds): 140 Weight (Ounces): 0.0 Weight (Calculated Kilograms): 63.900337 Constitutional: AAO x 3, well-developed, well-nourished Respiratory: No accessory muscle use, No respiratory distress; chest expansion is symmetric, chest is bilaterally symmetric, lungs clear to auscultation Cardiovascular: irregularly irregular; No JVD; tachycardia Gastrointestional: No tender; soft, round, audible bowel sounds Extremities: other (mild right ankle swelling) Neurologic/Psychiatric: grossly intact (moves all extremities) Skin: No rash on exposed areas, No ulcerations on exposed areas Results/Procedures: Labs Laboratory Tests 01/29/21 04:45: White Blood Count 9.1, Red Blood Count 4.54, Hemoglobin 12.5, Hematocrit 39, Mean Corpuscular Volume 86, Mean Corpuscular Hemoglobin 28, Mean Corpuscular Hemoglobin Concent 32, Red Cell Distribution Width 14.6H, Platelet Count 177, Mean Platelet Volume 11.7, Immature Granulocyte % (Auto) 0, Neutrophils (%) (Auto) 78H, Lymphocytes (%) (Auto) 13, Monocytes (%) (Auto) 7, Eosinophils (%) (Auto) 2, Basophils (%) (Auto) 0, Neutrophils # (Auto) 7.1, Lymphocytes # (Auto) 1.2, Monocytes # (Auto) 0.7, Eosinophils # (Auto) 0.2, Basophils # (Auto) 0.0, Immature Granulocyte # (Auto) 0.0, Sodium Level 138, Potassium Level 4.2, Chlo ride Level 104, Carbon Dioxide Level 23, Anion Gap 11, Blood Urea Nitrogen 11, Creatinine 0.80, Estimat Glomerular Filtration Rate 69, BUN/Creatinine Ratio 14, Glucose Level 112H, Calcium Level 8.8, Corrected Calcium 9.1, Phosphorus Level 3.2, Magnesium Level 2.1, Total Bilirubin 1.0, Aspartate Amino Transf (AST/SGOT) 16, Alanine Aminotransferase (ALT/SGPT) 27, Alkaline Phosphatase 76, Total Protein 6.3L, Albumin 3.6 Microbiology 01/27/21 MRSA Screen - Final, Complete MRSA not isolated Laboratory Tests 01/27/21 12:27 01/28/21 04:50 01/29/21 04:45 A/P: Assessment: Paroxysmal atrial fibrillation - continuing a-fib with RVR, treated with elec CV on 01/28/21 - first diagnosed July 2020 hospital admission - TSH WNL on 01-28-21 - OAC with Eliquis Minimally elevated troponin (Type 2 [place]) - likely secondary to a-fib with RVR Coronary artery disease - history of CABG done in 2000 - cardiac catheterization in June 2015: LAD occluded at the midportion, the distal LAD protected by patent RICE; high diagonal branch stent stent known to be Promus 2.2 x 12 mm placed in 2011; the circumflex had a patent stent in the proximal portion; RCA was occluded proximally protected by patent vein graft to the distal right coronary artery. - Patient had an abnormal stress test in August 2017, attempt for cardiac catheterization failed due to the extensive disease in her thoracic and a bdominal aorta. Medical therapy recommended - Echocardiogram of 07-20-[address] Morales showed LVEF 55-65%. LA mod dilated. RA dilated. PASP 30-35 mmHg History of thoracic and abdominal aneurysm - status post repair done by Dr. Emery in [place] in 2012. Peripheral arterial disease - left lower extremity aneurysm, following with [facility] (Dr Emery). Hypertension Hyperlipidemia History of carotid stenosis - followed by Dr. Emery at [facility] History of intermittent hypokalemia Plan: BP elevated today. Treat BP and PAF with long-acting beta-rajiv and CCB ( Toprol XL 100 and Cardizem CD 240 daily) Continue OAC with Eliquis Continue ASA I discussed her case in detail with Dr White today Close outpt f/u advised AMARI FOSTER MD FACP FAC CCDS Jan 29, 2021 10:42
[2021-01-29 13:28] VITALS: BP 180/109
== END 2021-01-29 12:30 | disposition home or self-care (01) | DRG 282 ==
LOC: EDUNIT# 12:13 → ER 12:14 → ICU 12:55 → CSD 01-28 16:15
PROVIDERS: ADMIT Family Medicine; ATTEND Family Medicine
PROC: 5A2204Z Restoration of Cardiac Rhythm, Single (ICD-10-PCS; principal; 2021-01-28)
DX: I48.0 Paroxysmal atrial fibrillation (principal); I21.A1 Myocardial infarction type 2; I25.10 Atherosclerotic heart disease of native coronary artery without angina pectoris; I73.9 Peripheral vascular disease, unspecified; I10 Essential (primary) hypertension; E78.5 Hyperlipidemia, unspecified; I65.29 Occlusion and stenosis of unspecified carotid artery; E78.00 Pure hypercholesterolemia, unspecified; G47.33 Obstructive sleep apnea (adult) (pediatric); F41.9 Anxiety disorder, unspecified; I25.2 Old myocardial infarction; Z79.01 Long term (current) use of anticoagulants; Z79.82 Long term (current) use of aspirin; Z79.899 Other long term (current) drug therapy; Z95.5 Presence of coronary angioplasty implant and graft; Z87.891 Personal history of nicotine dependence; Z20.822 Contact with and (suspected) exposure to COVID-19; Z95.1 Presence of aortocoronary bypass graft
CPT/HCPCS: 36415; 71045; 80053; 82550; 82553; 83735; 83880; 84100; 84443; 84484; 85025; 85027; 85610; 85730; 87081; 87636; 93005; 93041

== ENCOUNTER 2021-05-22 05:33 | Inpatient (IN) | payer MEDICARE ==
[~2021-05-22] VITALS: Ht 154.9 cm; Wt 57.8 kg
[~2021-05-22 05:33] MED LIST changes: +ASPI-1238 PO; +DILT240C91 PO
[2021-05-22] MEDS ORDERED: ASPIRIN 81 MG CHEW (CHILDREN'S ASA) PO ONE (05:45)
--- NOTE | 2021-05-22 05:47 | ED Cardiac General ---
History of Present Illness General Stated Complaint: CP Source: patient, EMS (MJ CAIN DO) History of Present Illness Date Seen by Provider: May 22, 2021 Time Seen by Provider: 05:37 Initial Comments PT ARRIVES VIA EMS FROM HOME STATES SHE WOKE UP AT 0300 WITH CHEST PAIN/PRESSURE AND FELT LIKE HER HEART WAS RACING + SHORTNESS OF BREATH + SWEATS + NAUSEA, NO VOMITING + SWELLING IN LEGS/FEET STATES SHE FEELS BETTER NOW AND THOUGHT IT WAS JUST ANXIETY EMS REPORT HEART RATE UP TO 140'S NO IV OR TREATMENT BY EMS. PT HAS HISTORY OF ATRIAL FIB/RVR, HAS ALSO HAD CABG AND STENTS X 5, LEFT LEG ANEURYSM REPAIR, THORACIC AND AAA REPAIR PT IS ON ELIQUIS, ASPIRIN, METOPROLOL AND MINOXIDIL. DENIES ANY MISSED DOSES OF MEDICATIONS, OR ANY CHANGE IN MEDICATIONS. HAS NOT TAKEN HER MORNING MEDICATIONS. PT HAS NOT HAD COVID OR FLU VACCINES PCP: DR. WAN CELL CLEANER: DR. FOSTER (MJ CAIN ) Allergies and Home Medications Allergies Coded Allergies: Nitish Known Allergies (Verified Allergy, Unknown, 08/29/06) Patient Home Medication List Home Medication List Reviewed: Yes (INEZ LLOYD MD) Apixaban (Eliquis) 5 Mg Tablet, 5 MG PO BID, (Reported) Entered as Reported by: JOHNNY ARNOLD on 01/27/21 1621 Aspirin (Aspirin EC) 81 Mg Tablet.dr, 81 MG PO DAILY, (Reported) Entered as Reported by: JOHNNY ARNOLD on 01/27/21 1559 Atorvastatin Calcium (Atorvastatin Calcium) 20 Mg Tablet, 20 MG PO 1400, (Reported) Entered as Reported by: JOHNNY ARNOLD on 07/20/20 1137 Cholecalciferol (Vitamin D3) (Vitamin D3) 25 Mcg Capsule, 25 MCG PO DAILY, (Reported) Entered as Reported by: JOHNNY ARNOLD on 07/20/20 1137 Diltiazem HCl (Diltiazem 24Hr ER) 240 Mg Cap.er.24h, 240 MG PO DAILY Prescribed by: KATE CARMICHAEL on 01/29/21 0947 Lisinopril (Lisinopril) 20 Mg Tablet, 20 MG PO 1400, (Reported) Entered as Reported by: HUNG ZIMMER on 06/08/15 2216 Metoprolol Succinate (Metoprolol Succinate) 100 Mg Tab.er.24h, 100 MG PO DAILY Prescribed by: KATE CARMICHAEL on 01/29/21 0947 Minoxidil (Minoxidil) 10 Mg Tab, 10 MG PO BID, (Reported) Entered as Reported by: ROSANA HERNANDEZ on 08/22/17 0940 [place]-3S/Dha/Epa/Fish Oil (Fish Oil 1,200 mg Softgel) 1 Each Capsule, 1 EACH PO 1400, (Reported) Entered as Reported by: JOHNNY ARNOLD on 07/20/20 1137 Review of Systems Review of Systems Constitutional: see HPI, diaphoresis EENTM: No Symptoms Reported Respiratory: See HPI, Shortness of Air Cardiovascular: See HPI, Chest Pain, Edema, Irregular Heart Rate, Lightheadedness, Palpitations; Denies Syncope Gastrointestinal: Denies Abdominal Pain; Nausea; Denies Vomiting Genitourinary: No Symptoms Reported Musculoskeletal: see HPI (LEFT SWELLING) Skin: no symptoms reported Psychiatric/Neurological: Anxiety Endocrine: No Symptoms Reported Hematologic/Lymphatic: No Symptoms Reported (MJ CAIN DO) Past Evqiceb-Rgahrj-Nczbvv Hx Patient Social History Tobacco Use?: Yes Tobacco type used: Cigarettes Smoking Status: Former Smoker Substance use?: No Alcohol Use?: No (MJ CAIN DO) Immunizations Up To Date Tetanus Booster (TDap): More than 5yrs PED Vaccines UTD: No First/Initial COVID19 Vaccinat: UNVACCINATED (MJ CAIN DO) Seasonal Allergies Seasonal Allergies: No (MJ CAIN DO) Past Medical History Surgery/Hospitalization HX: HOSPITALIZATION: 07/2020 - AFIB NO SURGERIES: CABG Surgeries: Yes (AAA REPAIR; LEFT LEG ANURYSM REPAIR; CARDIAC STENTS X 5;CABG) Abdominal, Cardiac, CABG, Coronary Stent, Tonsillectomy, Vascular Surgery Respiratory: Yes Sleep Apnea Currently Using CPAP: No Currently Using BIPAP: No Cardiac: Yes (CHF; CABG; STENTS X 5; LEFT LEG ANEURYSM REPAIR;THORACIC &AAA REPAIR) Aneurysm, Atrial Fibrillation, Chronic Edema/Swelling, Coronary Artery Disease, Heart Attack, High Cholesterol, Hypertension, Peripheral Vascular Neurological: No Reproductive Disorders: No 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: 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 Gastrointestinal: No Musculoskeletal: No Endocrine: No Cancer: No Psychosocial: Yes Anxiety Integumentary: No Blood Disorders: No Adverse Reaction/Blood Tranf: No (MJ CAIN ) Family Medical History FHx: stroke 21 FATHER 19 MOTHER No Pertinent Family Hx - history of CABG done in 2000 - cardiac catheterization in June 2015: LAD occluded at the midportion, the distal LAD protected by patent RICE; high diagonal branch stent stent known to be Promus 2.2 x 12 mm placed in 2011; the circumflex had a patent stent in the proximal portion; RCA was occluded proximally protected by patent vein graft to the distal right coronary artery. - Patient had an abnormal stress test in August 2017, attempt for cardiac catheterization failed due to the extensive disease in her thoracic and abdominal aorta. Medical therapy recommended - Echocardiogram of 07-20-[address] Morales showed LVEF 55-65%. LA mod dilated. RA dilated. PASP 30-35 mmHg History of thoracic and abdominal aneurysm - status post repair done by Dr. Emery in [place] in 2012. Peripheral arterial disease - left lower extremity aneurysm, following with [facility] (Dr Emery). History of carotid stenosis - followed by Dr. Emery at [facility] (ANTMJ Angela ) Physical Exam Vital Signs Vital Signs - First Documented 05/22/21 05/22/21 05:36 05:50 Temp 36.7 Pulse 151 Resp 16 B/P (MAP) 132/112 (119) Pulse Ox 94 O2 Delivery Room Air O2 Flow Rate 2.00 (INEZ LLOYD MD) Vital Signs Capillary Refill : (ANTMJ Angela ) Height, Weight, BMI Height: 5'0.00" Weight: 140lbs. 0.0oz. 63.087830aw; 25.35 BMI Method:Stated General Appearance: WD/WN, Mild Distress (LABORED BREATHING, BUT ABLE TO TALK IN FULL SENTENCES. ) HEENT: PERRL/EOMI, Other (PERIORBITAL EDEMA WITH EDEMA OF [place]CTIVA. ) Neck: Normal Inspection Respiratory: Accessory Muscle Use (LABORED BREATHING ), Decreased Breath Sounds (IN BASES) Cardiovascular: No Murmur, Irregularly Irregular, Tachycardia Gastrointestinal: Non Tender, Soft Extremity: Normal Capillary Refill, Pedal Edema (2+ EDEMA BILATERALLY) Neurologic/Psychiatric: Alert, Oriented x3, No Motor/Sensory Deficits, automation and controls manager II- XII Norm as Tested, Other (ANXIOUS) Skin: Normal Color, Warm/Dry (ANT,MJ Angela DO) Progress/Results/Core Measures Results/Orders Lab Results Laboratory Tests Test 05/22/21 05:55 05/22/21 06:18 Range/Units White Blood Count 10.3 4.3-11.0 10^3/uL Red Blood Count 4.91 3.80-5.11 10^6/uL Hemoglobin 13.9 11.5-16.0 g/dL Hematocrit 43 35-52 % Mean Corpuscular Volume 88 80-99 fL Mean Corpuscular Hemoglobin 28 25-34 pg Mean Corpuscular Hemoglobin Concent 32 32-36 g/dL Red Cell Distribution Width 15.2 H 10.0-14.5 % Platelet Count 229 130-400 10^3/uL Mean Platelet Volume 11.6 9.0-12.2 fL Immature Granulocyte % (Auto) 1 % Neutrophils (%) (Auto) 81 H 42-75 % Lymphocytes (%) (Auto) 11 L 12-44 % Monocytes (%) (Auto) 6 0-12 % Eosinophils (%) (Auto) 1 0-10 % Basophils (%) (Auto) 1 0-10 % Neutrophils # (Auto) 8.3 H 1.8-7.8 10^3/uL Lymphocytes # (Auto) 1.1 1.0-4.0 10^3/uL Monocytes # (Auto) 0.7 0.0-1.0 10^3/uL Eosinophils # (Auto) 0.1 0.0-0.3 10^3/uL Basophils # (Auto) 0.1 0.0-0.1 10^3/uL Immature Granulocyte # (Auto) 0.1 0.0-0.1 10^3/uL Prothrombin Time 18.5 H 12.2-14.7 SEC INR Comment 1.5 H 0.8-1.4 Activated Partial Thromboplast Time 32 24-35 SEC Sodium Level 142 135-145 MMOL/L Potassium Level 3.6 3.6-5.0 MMOL/L Chloride Level 108 H 98-107 MMOL/L Carbon Dioxide Level 23 21-32 MMOL/L Anion Gap 11 5-14 MMOL/L Blood Urea Nitrogen 17 7-18 MG/DL Creatinine 0.87 0.60-1.30 MG/DL Estimat Glomerular Filtration Rate 68 BUN/Creatinine Ratio 20 Glucose Level 149 H 70-105 MG/DL Calcium Level 9.1 8.5-10.1 MG/DL Corrected Calcium 9.0 8.5-10.1 MG/DL Magnesium Level 2.1 1.6-2.4 MG/DL Total Bilirubin 0.9 0.1-1.0 MG/DL Aspartate Amino Transf (AST/SGOT) 21 5-34 U/L Alanine Aminotransferase (ALT/SGPT) 45 0-55 U/L Alkaline Phosphatase 86 40-136 U/L Total Creatine Kinase 53 29-168 U/L Creatine Kinase MB 1.4 <6.6 NG/ML Myoglobin 39.3 10.0-92.0 NG/ML Troponin I < 0.028 <0.028 NG/ML B-Type Natriuretic Peptide 1042.9 H <100.0 PG/ML Total Protein 6.9 6.4-8.2 GM/DL Albumin 4.1 3.2-4.5 GM/DL TSH [place] Testing 1.56 0.35-4.94 UIU/ML Influenza Type A (RT-PCR) Not Detected Not Detecte Influenza Type B (RT-PCR) Not Detected Not Detecte SARS-CoV-2 RNA (RT-PCR) Not Detected Not Detecte (INEZ LLOYD MD) My Orders Orders - INEZ LLOYD MD Metoprolol Succinate (Xl) Tab (Toprol Xl (05/22/21 07:30) Apixaban Tablet (Eliquis Tablet) (05/22/21 07:30) Ed Admission (Communication) (05/22/21 07:40) (INEZ LLOYD MD) Medications Given in ED Current Medications Medications Dose Ordered Sig/Preeti Route Start Time Stop Time Status Last Admin Dose Admin Aspirin 324 mg ONCE ONCE PO 05/22/21 05:45 05/22/21 05:46 DC 05/22/21 06:00 324 MG Diltiazem HCl 20 mg ONCE ONCE IVP 05/22/21 05:45 05/22/21 05:46 DC 05/22/21 06:00 10 MG (INEZ LLOYD MD) Vital Signs/I&O 05/22/21 05/22/21 05:36 05:50 Temp 36.7 Pulse 151 Resp 16 B/P (MAP) 132/112 (119) Pulse Ox 94 O2 Delivery Room Air Nasal Cannula O2 Flow Rate 2.00 (INEZ LLOYD MD) Progress Progress Note : Progress Note GIVEN ASPIRIN GIVEN CARDIZEM BOLUS AND PLACED IN CARDIZEM DRIP. HEART RATE QUICKLY DOWN TO 80'S, BUT REMAINS IN ATRIAL FIBRILLATION BP STABLE IN 140'S SYSTOLIC. GIVEN LASIX FOR CHF 0600--CARE TURNED OVER TO DR. LLOYD, LAB PENDING. (MJ CAIN DO) Progress Note : Time: 07:37 Progress Note Care assumed from Dr. CAIN at shift change. Labs, x-ray, and EKGs reviewed. Patient is feeling better and heart rate is stable on Cardizem drip at 5 mg/h with heart rate running at around 110. Case was discussed with Dr. Foster who would like patient continue on Cardizem drip and admitted. He requests we give her morning dose of metoprolol XL 100 mg and Eliquis 5 mg which she has not yet taken this morning. I discussed CODE STATUS with the patient and she request full code, but she does not want to be kept alive long-term on life support. (INEZ LLOYD MD) Initial ECG Impression Date: May 22, 2021 Initial ECG Impression Time: 05:41 Initial ECG Rate: 132 Initial ECG Impression: Atrial Fibrillation w/RVR (MJ CAIN DO) EKG : EKG Time: 06:18 Rate: 115 Rhythm: A Fib/Flutter Comment Atrial fibrillation with mild RVR. No STEMI. Subtle nondiagnostic ST changes. Borderline right axis deviation (INEZ LLOYD MD) Diagnostic Imaging Comments CXR-- (MJ CAIN DO) Diagonstic Imaging: Xray Plain Films/CT/US/NM/MRI: chest Comments Chest x-ray viewed by me and report reviewed. See report below: NAME: OMAR MORRIS [facility] REC#: [id number] PT STATUS: [facility] ER : 1940 PHYSICIAN: MJ CAIN DO ADMIT DATE: 05/22/21/ER Draft Date of Exam:05/22/21 CHEST 1 VIEW, AP/PA ONLY HISTORY: Chest pain TECHNIQUE: Frontal view of the chest. COMPARISON: 01/28/2021 FINDINGS: Cardiomegaly appears stable. Sternotomy wires and post-CABG changes are noted. There is a small right pleural effusion. No pneumothorax is seen. No focal consolidation is seen. IMPRESSION: 1. Stable cardiomegaly with minimal right pleural effusion. Dictated on workstation # [id number] Dict: 05/22/21 0709 Trans: 05/22/21 0710 CV [id number] Interpreted by: IAN ROTHMAN MD (INEZ LLOYD MD) Departure Communication (Admissions) Time/Spoke to Admitting Phy: 07:30 Dr. Barajas Time/Spoke to Consulting Phy: 07:25 Dr. Foster (INEZ LLOYD MD) Impression Primary Impression: Atrial fibrillation with RVR Additional Impressions: CAD (coronary artery disease) Qualified Codes: I25.10 - Atherosclerotic heart disease of [place] coronary artery without angina pectoris Chest pain Qualified Codes: R07.9 - Chest pain, unspecified ASVD (arteriosclerotic vascular disease) CHF (congestive heart failure) Qualified Codes: I50.9 - Heart failure, unspecified Disposition: 09 ADMITTED INPATIENT Condition: Improved Admissions Decision to Admit Reason: Admit from ER (General) Decision to Admit/Date: May 22, 2021 Time/Decision to Admit Time: 05:40 (INEZ LLOYD MD) Departure-Patient Inst. Referrals: LIAN WAN DO (PCP/Family) Primary Care Physician MJ CAIN DO May 22, 2021 05:47 INEZ LLOYD MD May 22, 2021 07:36
[2021-05-22] MEDS: dilTIAZem DRIP PRE-MIX 125 ML IV SCH ×3 (06:00→20:33)
[2021-05-22 06:05] LABS: BASOPHILS # (AUTO) 0.1 10^3/uL (0.0-0.1); BASOPHILS % (AUTO) 1 % (0-10); EOSINOPHILS # (AUTO) 0.1 10^3/uL (0.0-0.3); EOSINOPHILS % (AUTO) 1 % (0-10); HEMATOCRIT 43 % (35-52); HEMOGLOBIN 13.9 g/dL (11.5-16.0); LYMPHOCYTES # (AUTO) 1.1 10^3/uL (1.0-4.0); LYMPHOCYTES % (AUTO) 11 % (12-44); MEAN CORPUSCULAR HEMOGLOBIN 28 pg (25-34); MEAN CORPUSCULAR HGB CONC 32 g/dL (32-36); MEAN CORPUSCULAR VOLUME 88 fL (80-99); MEAN PLATELET VOLUME 11.6 fL (9.0-12.2); MONOCYTES # (AUTO) 0.7 10^3/uL (0.0-1.0); MONOCYTES % (AUTO) 6 % (0-12); NEUTROPHILS # (AUTO) 8.3 10^3/uL (1.8-7.8); NEUTROPHILS % (AUTO) 81 % (42-75); PLATELET COUNT 229 10^3/uL (130-400); WHITE BLOOD COUNT 10.3 10^3/uL (4.3-11.0)
[2021-05-22] MEDS ORDERED: FUROSEMIDE 40 MG/4 ML INJ (LASIX) IVP ONE (06:15)
[2021-05-22 06:19] LABS: ALBUMIN 4.1 GM/DL (3.2-4.5); POTASSIUM 3.6 MMOL/L (3.6-5.0)
[2021-05-22 06:20] LABS: CALCIUM 9.1 MG/DL (8.5-10.1)
[2021-05-22 06:21] LABS: INR 1.5 (0.8-1.4); PROTHROMBIN TIME PATIENT 18.5 SEC (12.2-14.7)
[2021-05-22 06:22] LABS: TOTAL PROTEIN 6.9 GM/DL (6.4-8.2)
[2021-05-22 06:24] LABS: BILIRUBIN,TOTAL 0.9 MG/DL (0.1-1.0)
[2021-05-22 06:25] LABS: CREATININE SERUM 0.87 MG/DL (0.60-1.30)
[2021-05-22 06:28] LABS: MAGNESIUM 2.1 MG/DL (1.6-2.4)
[2021-05-22 06:36] LABS: CREATINE KINASE MB 1.4 NG/ML (<6.6)
[2021-05-22 06:48] LABS: TSH (THYROID ANALYZER) 1.56 UIU/ML (0.35-4.94)
--- NOTE | 2021-05-22 07:11 | Diagnostic Imaging Report ---
HISTORY: Chest pain TECHNIQUE: Frontal view of the chest. COMPARISON: 01/28/2021 FINDINGS: Cardiomegaly appears stable. Sternotomy wires and post-CABG changes are noted. There is a small right pleural effusion. No pneumothorax is seen. No focal consolidation is seen. IMPRESSION: 1. Stable cardiomegaly with minimal right pleural effusion. Dictated by: Dictated on workstation # [id number]
[2021-05-22] MEDS ORDERED: APIXABAN 5 MG (ELIQUIS) TABLET PO ONE (07:30)
[2021-05-22] MEDS ORDERED: meTOproloL SUCCINATE 50 MG (TOPROL XL) TAB PO SCH (07:30)
--- NOTE | 2021-05-22 07:36 | History & Physical-Hospitalist ---
History of Present Illness HPI/Chief Complaint Chief complaint: Atrial fibrillation with rapid ventricular response History of present illness: This is a 80-year-old white female clinic patient of Dr. Jacobs and Dr. Macedo who has a past medical history of chronic atrial fibrillation maintained on anticoagulation. She reports that she began feeling short of breath and palpitations so she called 911 and ambulance brought her to the ER patient was found to have A. fib with RVR. Currently she is on a Cardizem drip. Anticoagulation was restarted. Dr. Macedo consulted. Volume overload noted so Lasix will be given. Source: patient Exam Limitations: no limitations Date Seen 05/22/21 Time Seen by a Provider: 11:30 Attending Physician PCP Sorin Jacobs DO Referring Physician Date of Admission Home Medications & Allergies Home Medications Reviewed patient Home Medication Reconciliation performed by pharmacy medication reconciliations audiology technician and/or nursing. Patients Allergies have been reviewed. Allergies Allergies Coded Allergies NKANo Known Allergies (Verified Allergy, Unknown, 08/29/06) Past Jihceab-Ayohix-Tiaaia Hx Patient Social History Marrital Status: single Employed/Student: retired Tobacco Use?: Yes Tobacco type used: Cigarettes Smoking Status: Former Smoker Substance use?: No Alcohol Use?: No Immunizations Up To Date First/Initial COVID19 Vaccinat: UNVACCINATED Second COVID19 Vaccination Dustin: UNVACCINATED Tetanus Booster (TDap): Unknown Hepatitis A: No Hepatitis B: No PED Vaccines UTD: No Date of Pneumonia Vaccine: Jun 01, 2006 Seasonal Allergies Seasonal Allergies: No Current Status Primary Language: [place] Preferred Spoken Language: [place] Past Medical History Surgeries: Abdominal, Cardiac, CABG, Coronary Stent, Tonsillectomy, Vascular Surgery Sleep Apnea, COPD Currently Using CPAP: No Currently Using BIPAP: No Aneurysm, Atrial Fibrillation, Chronic Edema/Swelling, Coronary Artery Disease, Heart Attack, High Cholesterol, Hypertension, Peripheral Vascular 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 - Patient had an abnormal stress test in August 2017, attempt for cardiac catheterization failed due to the extensive disease in her thoracic and abdominal aorta. Medical therapy recommended - Echocardiogram of 07-20-[address] Morales showed LVEF 55-65%. LA mod dilated. RA dilated. PASP 30-35 mmHg History of thoracic and abdominal aneurysm - status post repair done by Dr. Emery in [place] in 2012. Peripheral arterial disease - left lower extremity aneurysm, following with [facility] (Dr Emery). History of carotid stenosis - followed by Dr. Emery at [facility] Review of Systems Constitutional: see HPI, dizziness, malaise, weakness EENTM: no symptoms reported Respiratory: cough, dyspnea on exertion Cardiovascular: chest pain, palpitations Gastrointestinal: no symptoms reported Genitourinary: decreased output Musculoskeletal: back pain, joint pain Skin: no symptoms reported Psychiatric/Neurological: Anxiety All Other Systems Reviewed Negative Unless Noted: Yes Physical Exam Physical Exam Vital Signs Vital Signs - First Documented 05/22/21 05/22/21 05:36 05:50 Temp 36.7 Pulse 151 Resp 16 B/P (MAP) 132/112 (119) Pulse Ox 94 O2 Delivery Room Air O2 Flow Rate 2.00 Capillary Refill : Less Than 3 Seconds Height, Weight, BMI Height: 5'0.00" Weight: 140lbs. 0.0oz. 63.136232kr; 25.35 BMI Method:Stated General Appearance: Anxious, Chronically ill, Mild Distress Eyes: Right Eye Normal Inspection, Right Eye PERRL HEENT: PERRL/EOMI, Normal ENT Inspection, Pharynx Normal, Moist Mucous Membranes Neck: Full Range of Motion, Normal Inspection, Non Tender Respiratory: Chest Non Tender, Lungs Clear, No Accessory Muscle Use, No Respiratory Distress, Decreased Breath Sounds Cardiovascular: No Edema, No Gallop, No JVD, No Murmur, Normal Peripheral Pulses, Irregularly Irregular, Tachycardia Gastrointestinal: Normal Bowel Sounds, No Organomegaly, No Pulsatile Mass, Non Tender, Soft Back: Normal Inspection, No CVA Tenderness, No Vertebral Tenderness Extremity: Normal Capillary Refill, Normal Inspection, Normal Range of Motion, Non Tender, No Calf Tenderness, No Pedal Edema Neurologic/Psychiatric: Alert, Oriented x3, No Motor/Sensory Deficits, Normal Mood/Affect Skin: Normal Color, Warm/Dry Lymphatic: No Adenopathy Results Results/Procedures Labs Laboratory Tests 05/22/21 05:55 05/23/21 04:44 Patient resulted labs reviewed. Assessment/Plan Admission Diagnosis Assessment: A. fib with RVR Volume overload Smoker CAD History of bypass Hypertension Hyperlipidemia Plan: Cardizem drip Anticoagulation ICU care Lasix Admission Status: Inpatient Order (span 2 midnights) Reason for Inpatient Admission: A. fib with RVR with CHF Diagnosis/Problems Diagnosis/Problems (1) Atrial fibrillation with RVR Status: Acute (2) Chest pain Status: Acute Qualifiers: Chest pain type: unspecified Qualified Codes: R07.9 - Chest pain, unspecified (3) CHF (congestive heart failure) Status: Acute Qualifiers: Heart failure type: unspecified Heart failure chronicity: acute on chronic Qualified Codes: I50.9 - Heart failure, unspecified (4) ASVD (arteriosclerotic vascular disease) Status: Acute Clinical Quality Measures AMI/AHF: ASA po Prior to arrival: MARKO Hardy DO May 22, 2021 07:36
[2021-05-22] MEDS ORDERED: FUROSEMIDE 40 MG/4 ML INJ (LASIX) ONE (09:35)
[2021-05-22] MEDS ORDERED: ANTACID SUSP 30 ML UDC (MYLANTA) PO PRN (10:15)
[2021-05-22] MEDS ORDERED: ONDANSETRON 4 MG/2 ML (SDV) Z0FRAN IV PRN (10:15)
[2021-05-22] MEDS ORDERED: morphine INJ 4 MG/ML 1 ML (VIAL/SYRINGE) IV PRN (10:15)
[2021-05-22] MEDS ORDERED: LACTULOSE SYRUP 10GM/15ML (ENULOSE) 30ML UDC PO PRN (10:15)
[2021-05-22] MEDS ORDERED: diphenhydrAMINE 50 MG/ML INJ (BENADRYL) IVP PRN (10:15)
[2021-05-22] MEDS ORDERED: BISACODYL 10 MG SUPP (DULCOLAX) PR PRN (10:15)
[2021-05-22] MEDS ORDERED: diphenhydrAMINE 25 MG TAB (BENADRYL) PO PRN (10:15)
[2021-05-22] MEDS ORDERED: MELATONIN 3 MG TABLET PO PRN (10:15)
[2021-05-22] MEDS ORDERED: MILK OF MAGNESIA 400 MG/5 ML 30 ML UDC PO PRN (10:15)
[2021-05-22] MEDS ORDERED: polyethylene glycoL POWDER 17 GM (MIRALAX) PACK PO PRN (10:15)
[2021-05-22] MEDS ORDERED: ACETAMINOPHEN 325 MG TABLET PO PRN (10:15)
[2021-05-22] MEDS ORDERED: CALCIUM CARBONATE 500 MG (TUMS) TAB.CHEW PO PRN (10:15)
[2021-05-22] MEDS ORDERED: PATIENT MAY USE OWN MEDS, ALL PO SCH (10:15)
[2021-05-22] MEDS ORDERED: ONDANSETRON 4 MG (ZOFRAN) ORAL DISSOLVE TAB PO PRN (10:15)
--- NOTE | 2021-05-22 11:43 | Tele-ICU Progress Note ---
Progress Note Video assessment done , Hemodynamically stable Available charting reviewed NO TELE-ICU CONSULT REQUESTED CONTINUE TO MONITOR PER USUAL TELE-ICU PROTOCOL No need for Tele-ICU interventions Plans as delineated by bedside physicians / consultants Focused Exam Height, Weight, BMI Height: 5'0.00" Weight: 140lbs. 0.0oz. 63.527730md; 26.58 BMI Method:Stated NONI KONG MD May 22, 2021 11:43
[2021-05-22 13:37] VITALS: BP 153/109
[2021-05-22] MEDS ORDERED: RT-ALBUTEROL SULF 2.5 MG/3 ML PRE-MIX VIAL INH PRN (13:45)
--- NOTE | 2021-05-22 15:19 | Consultation-Cardiology ---
HPI-Cardiology Cardiology Consultation: Date of Consultation 05/22/21 Time Seen by a Provider: 13:55 Date of Admission Attending Physician Octavia Barajas DO Admitting Physician Sorin Jacobs DO Consulting Physician AMARI FOSTER MD, MA, FACP, FACC, FSCAI, CCDS HPI: Chief Complaint: Palpitations, shortness of breath, chest discomfort 80 yr old female admitted to Dr Barajas with a-fib with RVR. She had had palpita tions and generalized, vague chest discomfort. She reports she was feeling weak, lightheaded and SOB. No report of syncope or near syncope. She reports chronic mild to mod bilat ankle swelling, R>L, which is unchanged. She denies missing any medication doses including OAC. She does not report any n/v/d. No c/o fever or chills. She reports she is feeling better at this time (after having been started on iv diltiazem in the ER) Review of Systems-Cardiology Review of Systems Constitutional: malaise, tiredness; No weight loss, No weight gain Eyes: No vision change Ears/Nose/Throat: No ear discharge, No nasal drainage, No recent hearing loss Respiratory: As described under HPI Cardiovascular: As described under HPI Gastrointestinal: No diarrhea, No nausea, No vomiting Genitourinary: No dysuria, No hematuria Musculoskeletal: back pain (chronic) Skin: No rash, No ulcerations Psychiatric/Neurological: No seizure, No focal weakness, No syncope Hematologic: No bleeding abnormalities ZSF-Jubbsr-Brntnq Hx Patient Social History Smoking Status: Former Smoker 2nd Hand Smoke Exposure: No Have you traveled recently?: No Alcohol Use?: No Pt feels they are or have been: No Tobacco type used: Cigarettes Immunizations Up To Date Tetanus Booster (TDap): More than 5yrs Date of Pneumonia Vaccine: Jun 01, 2006 Past Medical History PMH As described under Assessment. Family Medical History Family Medical History: She reports her father and mother both had strokes. She does not report any premature CAD or SCD. Family History: FHx: stroke 19 FATHER 19 MOTHER Allergies and Home Medications Allergies Coded Allergies: NKANo Known Allergies (Verified Allergy, Unknown, 08/29/06) Patient Home Medication List Home Medication List Reviewed: Yes Apixaban (Eliquis) 5 Mg Tablet, 5 MG PO BID, (Reported) Entered as Reported by: JOHNNY ARNOLD on 01/27/21 1621 Aspirin (Aspirin EC) 81 Mg Tablet.dr, 81 MG PO DAILY, (Reported) Entered as Reported by: JOHNNY ARNOLD on 01/27/21 1559 Atorvastatin Calcium (Atorvastatin Calcium) 20 Mg Tablet, 20 MG PO 1400, (Reported) Entered as Reported by: JOHNNY ARNOLD on 07/20/20 1137 Cholecalciferol (Vitamin D3) (Vitamin D3) 25 Mcg Capsule, 25 MCG PO DAILY, (Reported) Entered as Reported by: JOHNNY ARNOLD on 07/20/20 1137 Diltiazem HCl (Diltiazem 24Hr ER) 240 Mg Cap.er.24h, 240 MG PO DAILY Prescribed by: KATE CARMICHAEL on 01/29/21 0947 Lisinopril (Lisinopril) 20 Mg Tablet, 20 MG PO 1400, (Reported) Entered as Reported by: HUNG ZIMMER on 06/08/15 2216 Metoprolol Succinate (Metoprolol Succinate) 100 Mg Tab.er.24h, 100 MG PO DAILY Prescribed by: KATE CARMICHAEL on 01/29/21 0947 Minoxidil (Minoxidil) 10 Mg Tab, 10 MG PO BID, (Reported) Entered as Reported by: ROSANA HERNANDEZ on 08/22/17 0940 [place]-3S/Dha/Epa/Fish Oil (Fish Oil 1,200 mg Softgel) 1 Each Capsule, 1 EACH PO 1400, (Reported) Entered as Reported by: JOHNNY ARNOLD on 07/20/20 1137 Physical Exam-Cardiology Physical Exam Vital Signs/I&O 05/22/21 05/22/21 05/22/21 05/22/21 05:36 05:50 09:38 09:55 Temp 36.7 Pulse 151 108 Resp 16 18 B/P (MAP) 132/112 (119) 122/95 Pulse Ox 94 95 96 O2 Delivery Room Air Nasal Cannula NIV Bilevel O2 Flow Rate 2.00 3.00 05/22/21 05/22/21 05/22/21 05/22/21 09:55 10:12 11:00 12:00 Temp 36.6 Pulse 126 106 95 107 Resp 20 20 16 B/P (MAP) 127/91 150/100 Pulse Ox 96 99 100 O2 Delivery Nasal Cannula Nasal Cannula Nasal Cannula O2 Flow Rate 3.00 3.00 3.00 05/22/21 05/22/21 05/22/21 05/22/21 12:39 13:00 13:37 14:00 Temp 36.6 Pulse 90 117 117 93 Resp 23 31 B/P (MAP) 153/109 130/94 Pulse Ox 99 99 97 O2 Delivery Nasal Cannula Nasal Cannula O2 Flow Rate 3.00 3.00 05/22/21 15:00 Pulse 98 Resp 23 B/P (MAP) 122/92 Pulse Ox 97 O2 Delivery Nasal Cannula O2 Flow Rate 3.00 Capillary Refill : Less Than 3 Seconds Constitutional: AAO x 3, well-developed, other (thin and frail) HEENT: PERRL, EOMI, hearing is well preserved; No xanthelasmas are seen Neck: carotid pulses are 2 + bilaterally, with good upstrokes Respiratory: No accessory muscle use; other (fair to good, bilateral air entry, diminished at the bases) Cardiovascular: irregularly irregular, S1 and S2, systolic murmur (soft ADDISON at the card base) Gastrointestinal: No tender; soft; No guarding, No rebound; audible bowel so unds Extremities: No clubbing, No cyanosis, No significant edema Skin: No rash on exposed areas, No ulcerations on exposed areas Data Review Labs Laboratory Tests 05/22/21 05:55: White Blood Count 10.3, Red Blood Count 4.91, Hemoglobin 13.9, Hematocrit 43, Mean Corpuscular Volume 88, Mean Corpuscular Hemoglobin 28, Mean Corpuscular Hemoglobin Concent 32, Red Cell Distribution Width 15.2H, Platelet Count 229, Mean Platelet Volume 11.6, Immature Granulocyte % (Auto) 1, Neutrophils (%) (Auto) 81H, Lymphocytes (%) (Auto) 11L, Monocytes (%) (Auto) 6, Eosinophils (%) (Auto) 1, Basophils (%) (Auto) 1, Neutrophils # (Auto) 8.3H, Lymphocytes # (Auto) 1.1, Monocytes # (Auto) 0.7, Eosinophils # (Auto) 0.1, Basophils # (Auto) 0.1, Immature Granulocyte # (Auto) 0.1, Prothrombin Time 18.5H, INR Comment 1.5H , Activated Partial Thromboplast Time 32, Sodium Level 142, Potassium Level 3.6, Chloride Level 108H, Carbon Dioxide Level 23, Anion Gap 11, Blood Urea Nitrogen 17, Creatinine 0.87, Estimat Glomerular Filtration Rate 68, BUN/Creatinine Ratio 20, Glucose Level 149H, Calcium Level 9.1, Corrected Calcium 9.0, Magnesium Level 2.1, Total Bilirubin 0.9, Aspartate Amino Transf (AST/SGOT) 21, Alanine Aminotransferase (ALT/SGPT) 45, Alkaline Phosphatase 86, Total Creatine Kinase 53, Creatine Kinase MB 1.4, Myoglobin 39.3, Troponin I < 0.028, B-Type Natriuretic Peptide 1042.9H, Total Protein 6.9, Albumin 4.1, TSH [place] Testing 1.56 05/22/21 06:18: Influenza Type A (RT-PCR) Not Detected, Influenza Type B (RT-PCR) Not Detected, SARS-CoV-2 RNA (RT-PCR) Not Detected Laboratory Tests 05/22/21 05:55 A/P-Cardiology Assessment/Admission Diagnosis Paroxysmal atrial fibrillation - treated with elec CV on 01/28/21 - first diagnosed July 2020 hospital admission - TSH WNL on 01-28-21 - OAC with Eliquis Ac diastolic CHF, likely due to PAF with RVR Coronary artery disease - history of CABG done in 2000 - cardiac catheterization in June 2015: LAD occluded at the midportion, the distal LAD protected by patent RICE; high diagonal branch stent stent known to be Promus 2.2 x 12 mm placed in 2011; the circumflex had a patent stent in the proximal portion; RCA was occluded proximally protected by patent vein graft to the distal right coronary artery. - Patient had an abnormal stress test in August 2017, attempt for cardiac catheterization failed due to the extensive disease in her thoracic and abdominal aorta. Medical therapy recommended - Echocardiogram of 07-20-[address] Morales showed LVEF 55-65%. LA mod dilated. RA dilated. PASP 30-35 mmHg History of thoracic and abdominal aneurysm - status post repair done by Dr. Emery in [place] in 2012. Peripheral arterial disease - left lower extremity aneurysm, following with [facility] (Dr Emery). Hypertension - controlled Hyperlipidemia - statin tx - followed by PCP History of carotid stenosis - followed by Dr. Emery at [facility] History of intermittent hypokalemia - managed by PCP Discussion and Recomendations * iv dilt for vent rate control * Amiodarone for rhythm maintenance * Continue Eliquis for stroke prophylaxis (she is on it chronically and has not missed any doses) * Elec CV if amiodarone does not work. Maintenance of NSR in the past has resulted in her maintaining an aysmptomatic status * Diuretics for decomp CHF * Replenish lytes * Monitor labs * I discussed her CV issues with her and also our treatment plan Clinical Quality Measures AMI/AHF: ASA po Prior to arrival: AMARI Lazo MD FACP FAC CCDS May 22, 2021 15:19
[2021-05-22] MEDS ORDERED: KCL 20 MEQ TAB (K-DUR) PO ONE (15:45)
[2021-05-22] MEDS ORDERED: AMIODARONE FOR BOLUS 150 MG in D5W 100 ML IVPB 100 ML IV NR (16:00)
[2021-05-22] MEDS ORDERED: AMIODARONE FOR BOLUS 150 MG in NS (IVPB) 100 ML IV NR (16:00)
[2021-05-22] MEDS: FUROSEMIDE 40 MG/4 ML INJ (LASIX) IVP SCH (16:26)
[2021-05-22] MEDS: AMIODARONE INJECTION 450 MG in D5W IV SOLUTION (EXCEL) 250 ML IV SCH (16:27)
[2021-05-22] MEDS: RT-ALBUTEROL SULF 2.5 MG/3 ML PRE-MIX VIAL INH SCH (20:29)
[2021-05-22] MEDS: APIXABAN 5 MG (ELIQUIS) TABLET PO SCH (20:33)
[2021-05-22] MEDS: DOCUSATE SODIUM 100 MG (COLACE) CAP PO SCH (20:33)
[2021-05-22] MEDS: SENNOSIDES 8.6 MG (SENOKOT) TAB PO SCH (20:33)
[2021-05-22] MEDS: KCL 20 MEQ TAB (K-DUR) PO SCH (20:33)
[2021-05-23] MEDS: AMIODARONE INJECTION 450 MG in D5W IV SOLUTION (EXCEL) 250 ML IV SCH (00:40)
[2021-05-23 05:02] LABS: BASOPHILS % (AUTO) 0 % (0-10); EOSINOPHILS # (AUTO) 0.1 10^3/uL (0.0-0.3); EOSINOPHILS % (AUTO) 1 % (0-10); HEMATOCRIT 41 % (35-52); HEMOGLOBIN 13.2 g/dL (11.5-16.0); LYMPHOCYTES # (AUTO) 1.1 10^3/uL (1.0-4.0); LYMPHOCYTES % (AUTO) 11 % (12-44); MEAN CORPUSCULAR HEMOGLOBIN 28 pg (25-34); MEAN CORPUSCULAR HGB CONC 32 g/dL (32-36); MEAN CORPUSCULAR VOLUME 87 fL (80-99); MEAN PLATELET VOLUME 11.4 fL (9.0-12.2); MONOCYTES # (AUTO) 0.7 10^3/uL (0.0-1.0); MONOCYTES % (AUTO) 7 % (0-12); NEUTROPHILS # (AUTO) 7.5 10^3/uL (1.8-7.8); NEUTROPHILS % (AUTO) 79 % (42-75); PLATELET COUNT 197 10^3/uL (130-400); WHITE BLOOD COUNT 9.4 10^3/uL (4.3-11.0)
[2021-05-23 05:15] LABS: ALBUMIN 3.7 GM/DL (3.2-4.5); POTASSIUM 3.8 MMOL/L (3.6-5.0)
[2021-05-23 05:16] LABS: CALCIUM 8.7 MG/DL (8.5-10.1)
[2021-05-23 05:17] LABS: TOTAL PROTEIN 6.2 GM/DL (6.4-8.2)
[2021-05-23 05:19] LABS: BILIRUBIN,TOTAL 1.2 MG/DL (0.1-1.0)
[2021-05-23] MEDS: POTASSIUM CL 10MEQ/50ML IVPB 50 ML IV SCH (05:19)
[2021-05-23] MEDS: KCL 20 MEQ TAB (K-DUR) PO SCH ×2 (05:20→08:10)
[2021-05-23 05:21] LABS: CREATININE SERUM 0.87 MG/DL (0.60-1.30)
[2021-05-23] MEDS: MAGNESIUM 1 GM/100 ML IVPB 100 ML IV SCH (05:27)
[2021-05-23] MEDS: FUROSEMIDE 40 MG/4 ML INJ (LASIX) IVP SCH (05:41)
--- NOTE | 2021-05-23 06:22 | Progress Note - Hospitalist ---
Subjective HPI/CC On Admission Date Seen by Provider: May 23, 2021 Time Seen by Provider: 10:00 Chief complaint: Atrial fibrillation with rapid ventricular response History of present illness: This is a 80-year-old white female clinic patient of Dr. Jacobs and Dr. Macedo who has a past medical history of chronic atrial fibrillation maintained on anticoagulation. She reports that she began feeling short of breath and palpitations so she called 911 and ambulance brought her to the ER patient was found to have A. fib with RVR. Currently she is on a Cardizem drip. Anticoagulation was restarted. Dr. Macedo consulted. Volume overload noted so Lasix will be given. Subjective/Events-last exam Patient doing well Cardioversion planned today No pain is reported Elevated blood pressure we will restart home meds Check meds labs Review of Systems General: Fatigue, Malaise Objective Exam Vital Signs Vital Signs Date Time Temp Pulse Resp B/P (MAP) Pulse Ox O2 Delivery O2 Flow Rate FiO2 05/24/21 05:00 66 15 192/111 98 Nasal Cannula 2.00 05/24/21 04:00 36.6 Capillary Refill : Less Than 3 Seconds General Appearance: No Apparent Distress, WD/WN, Anxious, Chronically ill Respiratory: Lungs Clear, Normal Breath Sounds Cardiovascular: Irregularly Irregular, Tachycardia Neurologic/Psychiatric: Alert, Oriented x3, No Motor/Sensory Deficits, Normal Mood/Affect Results/Procedures Lab Laboratory Tests 05/24/21 04:08 Patient resulted labs reviewed. Assessment/Plan Assessment and Plan Assess & Plan/Chief Complaint Assessment: A. fib with RVR Volume overload Smoker CAD History of bypass Hypertension Hyperlipidemia Plan: Cardizem drip Anticoagulation ICU care Lasix 05/23/2021: Supportive care Cardioversion Appreciate cardiology Diagnosis/Problems Diagnosis/Problems (1) Atrial fibrillation with RVR Status: Acute (2) Chest pain Status: Acute Qualifiers: Chest pain type: unspecified Qualified Codes: R07.9 - Chest pain, unspecified (3) CHF (congestive heart failure) Status: Acute Qualifiers: Heart failure type: unspecified Heart failure chronicity: acute on chronic Qualified Codes: I50.9 - Heart failure, unspecified (4) ASVD (arteriosclerotic vascular disease) Status: Acute Clinical Quality Measures AMI/AHF: ASA po Prior to arrival: MARKO Hardy DO May 23, 2021 06:22
[2021-05-23] MEDS: RT-ALBUTEROL SULF 2.5 MG/3 ML PRE-MIX VIAL INH SCH ×2 (07:12→22:31)
[2021-05-23] MEDS: SENNOSIDES 8.6 MG (SENOKOT) TAB PO SCH ×2 (07:25→20:59)
[2021-05-23] MEDS: DOCUSATE SODIUM 100 MG (COLACE) CAP PO SCH ×2 (07:25→20:59)
[2021-05-23] MEDS: APIXABAN 5 MG (ELIQUIS) TABLET PO SCH ×2 (08:10→20:58)
[2021-05-23] MEDS ORDERED: NS IV 500 ML 500 ML ONE (09:53)
[2021-05-23] MEDS: dilTIAZem DRIP PRE-MIX 125 ML IV SCH (10:26)
[2021-05-23] MEDS ORDERED: proPOfol 200 MG/20 ML (DIPRIVAN) VIAL IV ONE (11:56)
--- NOTE | 2021-05-23 13:08 | Progress Note - Cardiology ---
Cardiology SOAP Progress Note Subjective: No new symptoms Shortness of breath with activity No cp or syncope Intermittent feeling of palpitations when in A Fib Objective: I&O/Vital Signs 05/23/21 05/23/21 05/23/21 05/23/21 02:00 03:00 04:00 04:00 Temp 36.6 Pulse 103 90 105 Resp 14 16 18 B/P (MAP) 144/111 152/114 124/103 Pulse Ox 92 93 99 O2 Delivery Nasal Cannula Nasal Cannula Nasal Cannula Nasal Cannula O2 Flow Rate 3.00 3.00 3.00 3.00 05/23/21 05/23/21 05/23/21 05/23/21 05:00 06:00 07:00 07:00 Pulse 122 101 95 103 Resp 15 20 14 B/P (MAP) 137/108 145/106 144/114 Pulse Ox 100 98 96 O2 Delivery Nasal Cannula Nasal Cannula Nasal Cannula O2 Flow Rate 3.00 3.00 3.00 05/23/21 05/23/21 05/23/21 05/23/21 07:13 08:00 08:00 08:00 Temp 36.2 Pulse 124 Resp 28 B/P (MAP) 153/112 Pulse Ox 95 96 95 O2 Delivery Nasal Cannula Nasal Cannula Nasal Cannula O2 Flow Rate 1.00 3.00 3.00 05/23/21 05/23/21 05/23/21 05/23/21 09:00 10:00 11:00 12:00 Temp 36.7 Pulse 124 116 130 Resp 14 12 16 B/P (MAP) 127/100 142/98 148/116 Pulse Ox 97 93 98 O2 Delivery Nasal Cannula Nasal Cannula Nasal Cannula O2 Flow Rate 3.00 3.00 3.00 05/23/21 12:00 Pulse 129 Resp 35 B/P (MAP) 129/100 Pulse Ox 93 O2 Delivery Nasal Cannula O2 Flow Rate 3.00 05/23/21 00:00 Intake Total 1153 ml Output Total 2550 ml Balance -1397 ml Weight (Pounds): 140 Weight (Ounces): 0.0 Weight (Calculated Kilograms): 63.353328 Constitutional: AAO x 3, well-developed, other (thin and frail) Respiratory: No accessory muscle use; other (fair to good, bilateral air entry, diminished at the bases) Cardiovascular: irregularly irregular, S1 and S2, systolic murmur (soft ADDISON at the card base) Gastrointestional: No tender; soft; No guarding, No rebound; audible bowel sounds Extremities: No clubbing, No cyanosis, No significant edema Skin: No rash on exposed areas, No ulcerations on exposed areas Results/Procedures: Labs Laboratory Tests 05/23/21 04:44: White Blood Count 9.4, Red Blood Count 4.70, Hemoglobin 13.2, Hematocrit 41, Mean Corpuscular Volume 87, Mean Corpuscular Hemoglobin 28, Mean Corpuscular Hemoglobin Concent 32, Red Cell Distribution Width 14.8H, Platelet Count 197, Mean Platelet Volume 11.4, Immature Granulocyte % (Auto) 0, Neutrophils (%) (Auto) 79H, Lymphocytes (%) (Auto) 11L, Monocytes (%) (Auto) 7, Eosinophils (%) (Auto) 1, Basophils (%) (Auto) 0, Neutrophils # (Auto) 7.5, Lymphocytes # (Auto) 1.1, Monocytes # (Auto) 0.7, Eosinophils # (Auto) 0.1, Basophils # (Auto) 0.0, Immature Granulocyte # (Auto) 0.0, Sodium Level 141, Potassium Level 3.8, Chloride Level 102, Carbon Dioxide Level 26, Anion Gap 13, Blood Urea Nitrogen 14, Creatinine 0.87, Estimat Glomerular Filtration Rate 68, BUN/Creatinine Ratio 16, Glucose Level 133H, Calcium Level 8.7, Corrected Calcium 8.9, Total Bilirubin 1.2H, Aspartate Amino Transf (AST/SGOT) 17, Alanine Aminotransferase (ALT/SGPT) 37, Alkaline Phosphatase 80, Total Protein 6.2L, Albumin 3.7 Laboratory Tests 05/22/21 05:55 05/23/21 04:44 A/P: Assessment: Paroxysmal atrial fibrillation - treated with elec CV on 01/28/21 and on 05/23/21 - first diagnosed July 2020 hospital admission - TSH WNL on 01-28-21 - OAC with Eliquis Ac diastolic CHF, likely due to PAF with RVR Coronary artery disease - history of CABG done in 2000 - cardiac catheterization in June 2015: LAD occluded at the midportion, the distal LAD protected by patent RICE; high diagonal branch stent stent known to be Promus 2.2 x 12 mm placed in 2011; the circumflex had a patent stent in the proximal portion; RCA was occluded proximally protected by patent vein graft to the distal right coronary artery. - Patient had an abnormal stress test in August 2017, attempt for cardiac catheterization failed due to the extensive disease in her thoracic and abdominal aorta. Medical therapy recommended - Echocardiogram of 07-20-[address] Morales showed LVEF 55-65%. LA mod dilated. RA dilated. PASP 30-35 mmHg History of thoracic and abdominal aneurysm - status post repair done by Dr. Emery in [place] in 2012. Peripheral arterial disease - left lower extremity aneurysm, following with [facility] (Dr Emery). Hypertension - controlled Hyperlipidemia - statin tx - followed by PCP History of carotid stenosis - followed by Dr. Emery at [facility] CV History of intermittent hypokalemia - managed by PCP Plan: * Change dilt and furosemide to oral * Amiodarone for rhythm maintenance * Continue Eliquis for stroke prophylaxis (she is on it chronically and has not missed any doses) * Replenish lytes * Monitor labs Clinical Quality Measures AMI/AHF: ASA po Prior to arrival: AMARI Lazo MD FACP FAC CCDS May 23, 2021 13:08
--- NOTE | 2021-05-23 13:27 | Anesthesia-General Post-Op ---
MAC Patient Condition Mental Status/LOC: Same as Preop Cardiovascular: Satisfactory Nausea/Vomiting: Absent Respiratory: Satisfactory Pain: Controlled Complications: Absent Post Op Complications Complications None Follow Up Care/Instructions Patient Instructions None needed. Anesthesiology Discharge Order Discharge Order Patient is doing well, no complaints, stable vital signs, no apparent adverse anesthesia problems. No complications reported per nursing. VICTORIA LINDSEY CRNA May 23, 2021 13:27
[2021-05-23] MEDS: AMIODARONE 200 MG (CORDARONE) TAB PO SCH (20:58)
[2021-05-24] MEDS ORDERED: lisINopril 20 MG (PRINIVIL) TABLET ONE (04:07)
[2021-05-24 04:30] LABS: BASOPHILS # (AUTO) 0.1 10^3/uL (0.0-0.1); BASOPHILS % (AUTO) 0 % (0-10); EOSINOPHILS # (AUTO) 0.2 10^3/uL (0.0-0.3); EOSINOPHILS % (AUTO) 2 % (0-10); HEMATOCRIT 41 % (35-52); HEMOGLOBIN 13.7 g/dL (11.5-16.0); LYMPHOCYTES # (AUTO) 1.1 10^3/uL (1.0-4.0); LYMPHOCYTES % (AUTO) 10 % (12-44); MEAN CORPUSCULAR HEMOGLOBIN 28 pg (25-34); MEAN CORPUSCULAR HGB CONC 33 g/dL (32-36); MEAN CORPUSCULAR VOLUME 85 fL (80-99); MEAN PLATELET VOLUME 11.2 fL (9.0-12.2); MONOCYTES % (AUTO) 9 % (0-12); NEUTROPHILS % (AUTO) 79 % (42-75); PLATELET COUNT 181 10^3/uL (130-400); WHITE BLOOD COUNT 11.3 10^3/uL (4.3-11.0)
[2021-05-24] MEDS ORDERED: lisINopril 20 MG (PRINIVIL) TABLET PO SCH (04:31)
[2021-05-24 04:55] LABS: ALBUMIN 3.6 GM/DL (3.2-4.5); POTASSIUM 3.5 MMOL/L (3.6-5.0)
[2021-05-24 04:56] LABS: CALCIUM 8.6 MG/DL (8.5-10.1)
[2021-05-24 04:58] LABS: TOTAL PROTEIN 5.9 GM/DL (6.4-8.2)
[2021-05-24 04:59] LABS: BILIRUBIN,TOTAL 1.3 MG/DL (0.1-1.0)
[2021-05-24 05:01] LABS: CREATININE SERUM 0.86 MG/DL (0.60-1.30)
[2021-05-24] MEDS: POTASSIUM CL 10MEQ/50ML IVPB 50 ML IV SCH (05:02)
[2021-05-24] MEDS: KCL 20 MEQ TAB (K-DUR) PO SCH (05:02)
[2021-05-24] MEDS: MAGNESIUM 1 GM/100 ML IVPB 100 ML IV SCH (05:47)
[2021-05-24] MEDS ORDERED: doxAzosin 4 MG (CARDURA) TAB PO ONE (06:45)
[2021-05-24] MEDS ORDERED: KCL 20 MEQ TAB (K-DUR) PO SCH (07:00)
[2021-05-24] MEDS: APIXABAN 5 MG (ELIQUIS) TABLET PO SCH (07:53)
[2021-05-24] MEDS: AMIODARONE 200 MG (CORDARONE) TAB PO SCH (07:53)
[2021-05-24] MEDS ORDERED: KCL 20 MEQ TAB (K-DUR) PO ONE (08:00)
[2021-05-24 08:08] VITALS: BP 192/116
[2021-05-24] MEDS: SENNOSIDES 8.6 MG (SENOKOT) TAB PO SCH (08:24)
[2021-05-24] MEDS: DOCUSATE SODIUM 100 MG (COLACE) CAP PO SCH (08:24)
[2021-05-24] MEDS ORDERED: MTP100TCR PO (08:38)
[2021-05-24] MEDS ORDERED: DILT240C91 PO (08:38)
[2021-05-24] MEDS ORDERED: AMIO400T5 PO (08:48)
--- NOTE | 2021-05-24 08:50 | Discharge Inst-Cardiology ---
Discharge Inst-Cardiac Discharge Medications New Medications: Amiodarone HCl (Amiodarone HCl) 400 Mg Tablet 400 MG PO BID, #60 TAB 1 Refill Continued Medications: Apixaban (Eliquis) 5 Mg Tablet 5 MG PO BID, TAB Aspirin (Aspirin EC) 81 Mg Tablet.dr 81 MG PO DAILY, TAB Cholecalciferol (Vitamin D3) (Vitamin D3) 25 Mcg Capsule 25 MCG PO DAILY, CAP Diltiazem HCl (Diltiazem 24Hr ER) 240 Mg Cap.er.24h 240 MG PO HS, CAP Lisinopril (Lisinopril) 20 Mg Tablet 20 MG PO 1200, TAB Metoprolol Succinate (Metoprolol Succinate) 100 Mg Tab.er.24h 100 MG PO DAILY, TAB Minoxidil (Minoxidil) 10 Mg Tab 10 MG PO BID, TAB New, Converted or Re-Newed RX: Transmitted to Pharmacy Patient Instructions Patient Instructions: Please schedule follow up appointment to see Dr. Macedo in 2 weeks ISAAK VELASCO May 24, 2021 08:50
[2021-05-24] MEDS ORDERED: meTOprolol SUCCINATE 100 MG (TOPROL XL) TAB PO SCH (09:00)
[2021-05-24] MEDS ORDERED: FUROSEMIDE 40 MG (LASIX) TAB PO SCH (09:00)
--- NOTE | 2021-05-24 11:40 | Occupational Therapy Eval ---
OT Evaluation-General/PLF Medical Diagnosis Admission Date May 22, 2021 at 18:08 Medical Diagnosis: AFib with RVR Onset Date: May 22, 2021 Therapy Diagnosis Therapy Diagnosis: n/a Height/Weight Height (Feet): 5 Height (Inches): 0.00 Weight (Pounds): 140 Weight (Ounces): 0.0 Precautions Precautions/Isolations: Standard Precautions Referral Physician: Fabricio Referral Reason: Evaluation/Treatment Medical History Pertinent Medical History: Atrial Fib, CAD, COPD, PVD Additional Medical History anxiety Current History ED due to SOB and palpitations Social History Home: Single Level Current Living Status: Children ADL-Prior Level of Function SCALE: Activities may be completed with or without assistive devices. 2-Rbrooqbhkf-uvrztva completes the activity by him/herself with no assistance from a helper. 5-Set-up or Clean-up Assistance-helper sets up or cleans up; patient completes activity. [place] assists only prior to or following the activity. 4-Supervision or Touching Assistance-helper provides verbal cues and/or touching/steadying and/or contact guard assistance as patient completes activity. Assistance may be provided throughout the activity or intermittently. 3-Partial/Moderate Assistance-helper does LESS THAN HALF the effort. [place] lifts, holds or supports trunk or limbs, but provides less than half the effort. 2-Substantial/Maximal Assistance-helper does MORE THAN HALF the effort. [place] lifts or holds trunk or limbs and provides more than half the effort. 3-Agodcofyw-ndpive does ALL the effort. Patient does none of the effort to c omplete the activity. Or, the assistance of 2 or more helpers is required for the patient to complete the activity. If activity was not attempted, code reason: 7-Patient Refused. 9-Not Applicable-not attempted and the patient did not perform the activity before the current illness, exacerbation or injury. 10-Not Attempted due to Environmental Limitations-(lack of equipment, weather restraints, etc.). 88-Not Attempted due to Medical Conditions or Safety Concerns. ADL PLOF Comments Pt reports IND with ADLs and functional mobility, no AD/AE Self Care: Independent Functional Cognition: Independent OT Current Status Subjective Pt in recliner, agreeable to OT Tx. Pt states she is ready to go home and feels like she is back to her baseline. Mental Status/Objective Patient Orientation: Person, Place, Time, Situation Current Upper Extremity ROM WFL ADL-Treatment Eating (QC): 6 (Per pt report.) Lower Body Dressing (QC): 6 (IND per clinical judgment.) On/Off Footwear (QC): 6 (IND with footwear) Toileting Hygiene (QC): 6 (IND per pt report.) Other Treatments Pt in recliner, states she is hoping to discharge today. Pt provided information about PLOF and home set up. Pt able to doff/don slip on shoes and gripper socks, then stood from chair, ambulated to the door and back to the chair, independently. Pt slightly limping with L leg, states this is her "bum" leg and has been this way for many years. Post tx, pt in recliner, call light in reach and all needs met. Education OT Patient Education: Correct positioning, Modified ADL techniques, Progress toward Goal/Update tx plan, Purpose of tx/functional activities, Rehab process Teaching Recipient: Patient Teaching Methods: Discussion Response to Teaching: Verbalize Understanding OT [place]room[place] Supervisor Goals Long-Term Goals 1=Demonstrate adherence to instructed precautions during ADL tasks. 2=Patient will verbalize/demonstrate understanding of assistive devices/modifications for ADL. 3=Patient will improve strength/tolerance for activity to enable patient to perform ADL's. OT Education/Plan Problem List/Assessment Assessment: No Skilled OT Needs ID'd No skilled OT services indicated at this time, as pt is at her PLOF and IND with ADLs. Discharge Recommendations Plan/Recommendations: Discharge/Goals Met Treatment Plan/Plan of Care Patient would benefit from OT for education, treatment and training to promote independence in ADL's, mobility, safety and/or upper extremity function for ADL's. Plan of Care: ADL Retraining, Functional Mobility Treatment Duration: May 24, 2021 Frequency: 1 time per week (eval only) Estimated Hrs Per Day: .25 hour per day Rehab Potential: Good Time/GCodes Start Time: 10:40 Stop Time: 10:48 Total Time Billed (hr/min): 8 Billed Treatment Time 1, EVRONI BUTLER OT May 24, 2021 11:40
--- NOTE | 2021-05-24 11:55 | Physical Therapy Evaluation ---
PT Evaluation-General Medical Diagnosis Admission Date May 22, 2021 at 18:08 Medical Diagnosis: AFib with RVR Onset Date: May 22, 2021 Therapy Diagnosis Therapy Diagnosis: debility Height/Weight Height (Feet): 5 Height (Inches): 0.00 Weight (Pounds): 140 Weight (Ounces): 0.0 Precautions Precautions/Isolations: Standard Precautions Referral Physician: Fabricio Reason for Referral: Evaluation/Treatment Medical History Pertinent Medical History: Atrial Fib, CAD, COPD, Heart Failure, HTN, AR, PVD Current History EMS secondary to SOA, sweats, nausea, swelling Reviewed History: Yes Social History Home: Single Level Current Living Status: Children Prior Prior Level of Function SCALE: Activities may be completed with or without assistive devices. 2-Kihghybuco-pywnili completes the activity by him/herself with no assistance from a helper. 5-Set-up or Clean-up Assistance-helper sets up or cleans up; patient completes activity. Clarence assists only prior to or following the activity. 4-Supervision or Touching Assistance-helper provides verbal cues and/or touching/steadying and/or contact guard assistance as patient completes activity. Assistance may be provided throughout the activity or intermittently. 3-Partial/Moderate Assistance-helper does LESS THAN HALF the effort. Clarence lif ts, holds or supports trunk or limbs, but provides less than half the effort. 2-Substantial/Maximal Assistance-helper does MORE THAN HALF the effort. Clarence lifts or holds trunk or limbs and provides more than half the effort. 9-Ujjvndzwu-nkmefn does ALL the effort. Patient does none of the effort to complete the activity. Or, the assistance of 2 or more helpers is required for the patient to complete the activity. If activity was not attempted, code reason: 7-Patient Refused. 9-Not Applicable-not attempted and the patient did not perform the activity before the current illness, exacerbation or injury. 10-Not Attempted due to Environmental Limitations-(lack of equipment, weather restraints, etc.). 88-Not Attempted due to Medical Conditions or Safety Concerns. Bed Mobility: 6 Transfers (B,C,W/C): 6 Gait: 6 Indoor Mobility (Ambulation): Independent Prior Devices Use: None PT Evaluation-Current Subjective Patient agrees to PT. Objective Patient Orientation: Normal For Age ROM/Strength ROM Lower Extremities bilateral LE WFL Strength Lower Extremities 4-/5 grossly bilateral LE Integumentary/Posture Bowel Incontinence: Yes Neuromuscular (Tone, Coordination, Reflexes) grossly intact Sensory Vision: Functional Hearing: Functional Transfers Lying to Sitting/Side of Bed(Q: 6 Sit to Stand (QC): 4 Chair/Nmd-io-Aebxi Xfer(QC): 4 Gait Does the Patient Walk?: Yes Mode of Locomotion: Walk Anticipated Mode of Locomotion: Walk Walk 10 feet (QC): 4 Walk 50 ft with 2 Turns(QC): 4 Walk 150 ft (QC): 4 Distance: 250' Gait Assistive Device: None Comments/Gait Description slightly unsteady with self correct Balance Sitting Static: Good Sitting Dynamic: Good Standing Static: Fair Standing Dynamic: Fair Assessment/Needs 80 y.o. female, lives with family who assist with all mobility, ADL's and cooking. Patient is at [facility] with all mobility Rehab Potential: Fair PT Plan Treatment/Plan Treatment Plan: Discontinue PT Treatment Duration: May 24, 2021 Frequency: 1 time per week Estimated Hrs Per Day: .25 hour per day Patient and/or Family Agrees t: Yes Time/GCodes Time In: 1108 Time Out: 1118 Total Billed Treatment Time: 10 Total Billed Treatment 1 visit EVLowC 10 min KVNG SIMON PT May 24, 2021 11:55
== END 2021-05-24 12:04 | disposition home or self-care (01) | DRG 291 ==
LOC: EDUNIT# 05:33 → ER 05:34 → ICU 07:41 → OBSVTOIN 18:08
PROVIDERS: ADMIT Internal Medicine; ATTEND Internal Medicine
DX: I11.0 Hypertensive heart disease with heart failure (principal); I50.31 Acute diastolic (congestive) heart failure; I48.0 Paroxysmal atrial fibrillation; I25.10 Atherosclerotic heart disease of native coronary artery without angina pectoris; I72.4 Aneurysm of artery of lower extremity; E78.00 Pure hypercholesterolemia, unspecified; E78.5 Hyperlipidemia, unspecified; I25.2 Old myocardial infarction; Z20.822 Contact with and (suspected) exposure to COVID-19; Z87.891 Personal history of nicotine dependence; Z95.5 Presence of coronary angioplasty implant and graft; Z95.1 Presence of aortocoronary bypass graft; Z79.01 Long term (current) use of anticoagulants; Z79.82 Long term (current) use of aspirin; Z79.899 Other long term (current) drug therapy
CPT/HCPCS: 36415; 71045; 80053; 82550; 82553; 83735; 83874; 83880; 84443; 84484; 85025; 85610; 85730; 87636; 93005; 93041; 94640; G0378

== ENCOUNTER 2021-08-03 21:51 | Emergency (ER) | payer MEDICARE ==
[~2021-08-03 21:51] MED LIST changes: +AMIO400T5 PO
--- NOTE | 2021-08-03 22:38 | ED EENT ---
History of Present Illness General Chief Complaint: Dental Problems/Pain Stated Complaint: TOOTH BLEEDING Source: patient Exam Limitations: no limitations History of Present Illness Date Seen by Provider: Aug 03, 2021 Time Seen by Provider: 22:37 Initial Comments Right lower dental bleeding that began when she went to bed tonight. No pain, no injury. On Eliquis for a-fib Timing/Duration: abrupt Severity: mild Prearrival Treatment: no prearrival treatment Associated Symptoms: denies symptoms Allergies and Home Medications Allergies Coded Allergies: ORTEGAANo Known Allergies (Verified Allergy, Unknown, 08/29/06) Patient Home Medication List Home Medication List Reviewed: Yes Amiodarone HCl (Amiodarone HCl) 400 Mg Tablet, 400 MG PO BID Prescribed by: ISAAK VELASCO on 05/24/21 0848 Apixaban (Eliquis) 5 Mg Tablet, 5 MG PO BID, (Reported) Entered as Reported by: JOHNNY ARNOLD on 01/27/21 1621 Aspirin (Aspirin EC) 81 Mg Tablet.dr, 81 MG PO DAILY, (Reported) Entered as Reported by: JOHNNY ARNOLD on 01/27/21 1559 Cholecalciferol (Vitamin D3) (Vitamin D3) 25 Mcg Capsule, 25 MCG PO DAILY, (Reported) Entered as Reported by: JOHNNY ARNOLD on 07/20/20 1137 Diltiazem HCl (Diltiazem 24Hr ER) 240 Mg Cap.er.24h, 240 MG PO HS, (Reported) Entered as Reported by: JOHNNY ARNOLD on 05/24/21 0838 Lisinopril (Lisinopril) 20 Mg Tablet, 20 MG PO 1200, (Reported) Entered as Reported by: HUNG ZIMMER on 06/08/15 2216 Metoprolol Succinate (Metoprolol Succinate) 100 Mg Tab.er.24h, 100 MG PO DAILY, (Reported) Entered as Reported by: JOHNNY ARNOLD on 05/24/21 0838 Minoxidil (Minoxidil) 10 Mg Tab, 10 MG PO BID, (Reported) Entered as Reported by: ROSANA HERNANDEZ on 08/22/17 0940 Review of Systems Review of Systems Constitutional: see HPI Eyes: No Symptoms Reported Ears: No Symptoms Reported Nose: no symptoms reported Mouth: see HPI Throat: no symptoms reported Respiratory: no symptoms reported Cardiovascular: no symptoms reported Musculoskeletal: no symptoms reported Past Gqxbxqv-Bnmqhn-Zusoma Hx Immunizations Up To Date Tetanus Booster (TDap): More than 5yrs PED Vaccines UTD: No First/Initial COVID19 Vaccinat: UNVACCINATED Second COVID19 Vaccination Dustin: UNVACCINATED Third COVID19 Vaccination Date: UNVACCINATED Seasonal Allergies Seasonal Allergies: No Past Medical History Surgery/Hospitalization HX: SIGNIFICANT CARDIAC SURGICAL HISTORY Surgeries: Yes (AAA REPAIR; LEFT LEG ANURYSM REPAIR; CARDIAC STENTS X 5;CABG) Abdominal, Cardiac, CABG, Coronary Stent, Tonsillectomy, Vascular Surgery Respiratory: Yes Sleep Apnea, COPD Currently Using CPAP: No Currently Using BIPAP: No Cardiac: Yes (CHF; CABG; STENTS X 5; LEFT LEG ANEURYSM REPAIR;THORACIC &AAA REPAIR) Aneurysm, Atrial Fibrillation, Chronic Edema/Swelling, Coronary Artery Disease, Heart Attack, High Cholesterol, Hypertension, Peripheral Vascular Neurological: No Reproductive Disorders: No 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 Gastrointestinal: No Musculoskeletal: No Endocrine: No Cancer: No Psychosocial: Yes Anxiety Integumentary: No Blood Disorders: No Adverse Reaction/Blood Tranf: No Family Medical History FHx: stroke 21 FATHER 19 MOTHER No Pertinent Family Hx - history of CABG done in 2000 - cardiac catheterization in June 2015: LAD occluded at the midportion, the distal LAD protected by patent RICE; high diagonal branch stent stent known to be Promus 2.2 x 12 mm placed in 2011; the circumflex had a patent stent in the proximal portion; RCA was occluded proximally protected by patent vein graft to the distal right coronary artery. - Patient had an abnormal stress test in August 2017, attempt for cardiac catheterization failed due to the extensive disease in her thoracic and abdominal aorta. Medical therapy recommended - Echocardiogram of 07-20-[address] Morales showed LVEF 55-65%. LA mod dilated. RA dilated. PASP 30-35 mmHg History of thoracic and abdominal aneurysm - status post repair done by Dr. Emery in [place] in 2012. Peripheral arterial disease - left lower extremity aneurysm, [facility] (Dr Emery). History of carotid stenosis - followed by Dr. Emery at [facility] Physical Exam Height, Weight, BMI Height: 5'0.00" Weight: 140lbs. 0.0oz. [id number]; 26.58 BMI Method:Stated General Appearance: WD/WN, no apparent distress Eyes: bilateral eye normal inspection, bilateral eye PERRL, bilateral eye EOMI Ears: bilateral ear auricle normal, bilateral ear canal normal, bilateral ear TM normal Mouth/Throat: pharynx normal Neck: non-tender, full range of motion Gastrointestinal: normal bowel sounds, non tender Neurologic/Psychiatric: alert, normal mood/affect, oriented x 3 Skin: normal color, warm/dry Progress/Results/Core Measures Results/Orders My Orders Orders - ANIVAL MESA APRN Clonidine Tablet (Catapres Tablet) (08/03/21 22:45) Departure Communication (Admissions) 2241-posterior aspect at the base of tooth #28 is exposed mandible with some blood oozing out between the exposed mandible and the tooth itself. Suction used, "Hemcon" dental hemostatic pad was applied and then a cotton pledget was applied over that for direct pressure with resultant hemostasis. Impression Primary Impression: Gingival hemorrhage Disposition: HOME, SELF-CARE Condition: Stable Departure-Patient Inst. Decision time for Depature: 22:41 Referrals: LIAN WAN DO (PCP/Family) Primary Care Physician Patient Instructions: Bleeding Gums (DC) Add. Discharge Instructions: 1. Call your dentist tomorrow for follow up. Return to ER for any concerns or recurrent bleeding. All discharge instructions reviewed with patient and/or family. Voiced understanding. Images Mouth/Nose 1 - ANIVAL MESA APRN Aug 03, 2021 22:38
[2021-08-03] MEDS ORDERED: cloNIDine 0.2 MG (CATAPRES) TAB PO ONE (22:45)
[2021-08-03 23:06] VITALS: BP 167/85
== END 2021-08-03 23:06 | disposition home or self-care (01) ==
LOC: EDUNIT# 21:51 → ER 21:57
DX: K06.8 Other specified disorders of gingiva and edentulous alveolar ridge (principal); I48.91 Unspecified atrial fibrillation; Z79.01 Long term (current) use of anticoagulants
CPT/HCPCS: 99283

== ENCOUNTER 2021-11-25 07:55 | Outpatient (CLI) | payer MEDICARE ==
[~2021-11-25] VITALS: Ht 154.9 cm; Wt 58.1 kg
[2021-11-25 08:07] VITALS: BP 165/77
[2021-11-25] MEDS ORDERED: diphenhydrAMINE 50 MG/ML INJ (BENADRYL) IV PRN (08:30)
[2021-11-25] MEDS ORDERED: EPINEPHrine INJECTION 1 MG/ML AMP IM PRN (08:30)
[2021-11-25] MEDS ORDERED: BEBTELOVIMAB 175 MG/2 ML VIAL IV ONE (08:30)
[2021-11-25] MEDS ORDERED: ACETAMINOPHEN 500 MG TAB (TYLENOL) PO PRN (08:30)
[2021-11-25] MEDS ORDERED: ONDANSETRON 4 MG/2 ML (SDV) Z0FRAN IV PRN (08:30)
[2021-11-25 09:30] VITALS: BP 158/68
== END 2021-11-25 09:36 | disposition home or self-care (01) ==
LOC: INFUSION 07:55
PROVIDERS: ATTEND Internal Medicine
DX: U07.1 COVID-19 (principal)

== ENCOUNTER → 2022-09-30 | Outpatient (CLI) | payer MEDICARE | LOC: CARD 09:01 | PROVIDERS: ATTEND Internal Medicine Cardiovascular Disease | DX: I08.0 Rheumatic disorders of both mitral and aortic valves (principal) | CPT/HCPCS: 93306 ==

== ENCOUNTER 2022-11-15 10:54 | Day surgery (SDC) | payer MEDICARE ==
[~2022-11-15] VITALS: Ht 149 cm; Wt 65.6 kg
[2022-11-15] VITALS (9 sets, daily range): BP systolic 115–163; BP diastolic 61–88
[2022-11-15] MEDS ORDERED: NS IV 1000 ML 1,000 ML IV ONE (11:15)
[2022-11-15] MEDS ORDERED: HEParin (CATH LAB) 2,000 ML IV ONE (11:17)
[2022-11-15] MEDS ORDERED: NS IV 1000 ML 1,000 ML ONE (11:17)
[2022-11-15] MEDS ORDERED: LIDOCAINE 1% INJ 20 ML VIAL ONE (11:17)
[2022-11-15 11:38] LABS: HEMATOCRIT 42 % (35-52); HEMOGLOBIN 13.6 g/dL (11.5-16.0); MEAN CORPUSCULAR HEMOGLOBIN 28 pg (25-34); MEAN CORPUSCULAR HGB CONC 33 g/dL (32-36); MEAN CORPUSCULAR VOLUME 85 fL (80-99); MEAN PLATELET VOLUME 10.7 fL (9.0-12.2); PLATELET COUNT 213 10^3/uL (130-400); WHITE BLOOD COUNT 11.5 10^3/uL (4.3-11.0)
[2022-11-15 11:51] LABS: PROTHROMBIN TIME PATIENT 13.5 SEC (12.2-14.7)
[2022-11-15 11:56] LABS: ALBUMIN 4.1 GM/DL (3.2-4.5); BILIRUBIN,TOTAL 0.9 MG/DL (0.1-1.0); CALCIUM 9.4 MG/DL (8.5-10.1); CREATININE SERUM 0.84 MG/DL (0.60-1.30); POTASSIUM 3.8 MMOL/L (3.6-5.0); TOTAL PROTEIN 7.8 GM/DL (6.4-8.2)
[2022-11-15] MEDS ORDERED: ATOR20TA66 PO (11:57)
[2022-11-15] MEDS ORDERED: ASPI-808 PO (11:57)
[2022-11-15] MEDS ORDERED: LOSA100T58 PO (11:57)
[2022-11-15] MEDS ORDERED: LISI40TA9 PO (11:57)
[2022-11-15] MEDS ORDERED: AMLO-250 PO (11:57)
[2022-11-15] MEDS ORDERED: MIDAZOLAM 5 MG/5 ML (VERSED) VIAL ONE (13:38)
[2022-11-15] MEDS ORDERED: fentaNYL INJ 100 MCG/2 ML AMP ONE (13:38)
[2022-11-15] MEDS ORDERED: HEParin 1000 UNIT/ML (10ML VIAL) FOR BOLUS ONE (13:38)
[2022-11-15] MEDS ORDERED: VERAPAMIL 5 MG/2 ML (CALAN) VIAL IV ONE (13:38)
[2022-11-15] MEDS ORDERED: NITRO DRIP 25000 MCG/D5W 250 ML IV ONE (13:39)
--- NOTE | 2022-11-15 15:43 | Cardiac Procedure Note-CS/ASA ---
Pre-Procedure Note Pre-Op Procedure Note Date of Available H&P: Nov 14, 2022 Date H&P Reviewed: Nov 15, 2022 Time H&P Reviewed: 14:15 History & Physical: H&P Reviewed, No changes noted Moderate Sedation PreProcedure ASA Score 3 Airway Lungs Heart ASA score ASA 1: a normal healthy patient ASA 2: a patient with a mild systemic disease (mid diabetes, controlled hypertension, obesity ASA 3: a patient with a severe systemic disease that limits activity (angina, COPD, prior Myocardial infarction) ASA 4: a patient with an incapacitating disease that is a constant threat to life (CHF, renal failure) ASA 5: a moribund patient not expected to survive 24 hrs. (ruptured aneurysm) ASA 6: a declared brain- patient whose organs are being harvested. For emergent operations, add the letter E after the classification Mallampati Classification Grade 2 Sedation Plan Analgesia, Amnesia, Plan communicated to team members The patient is an appropriate candidate to undergo the planned procedure, sedation, and anesthesia. The patient immediately re-assessed prior to indication. AMARI FOSTER MD FACP [facility]AC [facility]S Nov 15, 2022 15:43
--- NOTE | 2022-11-15 16:06 | Cardiac Cath Report ---
CARDIAC CATHETERIZATION DATE OF PROCEDURE: 11-15-22 INDICATION: CAD HISTORY: The patient is a 82 year old female who has been diagnosed with a L atrial mass and her CV surgeon Dr Dow has recommend card cath and coronary angiography PROCEDURES PERFORMED: 1. Cor angio 2. LHC and LV angio 3. Aortic root angio PROCEDURE DESCRIPTION: After informed consent and in the fasting state, left heart catheterization was performed through the L radial artery utilizing a a 6F sheath and 5F catheters by percutaneous approach. JR4 for aortocoronary graft angio. Right cor artery is known to be chronically occluded in its proximal portion and was not reengaged. JL3.5 for cor artery. Pigtail for left heart cath, LV angio, and aortic root angio. JR4 for RICE to LAD. All catheters were exchanged over a guidewire. HEMODYNAMICS: LVEDP 7 mmHg. No significant pressure gradient on pull back across the aortic valve. CORONARY ANGIOGRAPHY: Coronary calcium present Left main coronary artery: Ok Left anterior descending coronary artery: 5060% prox and mid High-diagonal/Ramus: patent proximal stent, mild diffuse disease Left circumflex coronary artery: patent prox stent, approx 50% mid vessel Right coronary artery: Chronically proximally occluded AORTO-CORONARY GRAFTS: Cephalic graft known to be to high-diagonal/ramus: chronically occluded Caudal graft known to be to RCA: occluded in its proximal portion LEFT INTERNAL MAMMARY ARTERY GRAFT: Patent, tortuous, grafted to distal LAD with good runoff LV ANGIO: Postero-basal akinesis. LVEF approx 60% AORTIC ROOT ANGIO: No significant aneurysm or dissection of the aortic root or ascending aorta. Good excursion of the aortic leaflets. No patent aorto-coronary grafts. No additional vessels unengaged vessels seen IMPRESSION: 1. Left main coronary artery: Ok. Left anterior descending coronary artery: 5060% prox and mid. High-diagonal/Ramus: patent proximal stent, mild diffuse disease. Left circumflex coronary artery: patent prox stent, approx 50% mid vessel. Right coronary artery: chronically proximally occluded 2. LVEDP 7 mmHg 3. LVEF 60% 4. Posterobasal akinesis AMARI FOSTER MD [facility] Nov 15, 2022 16:06
--- NOTE | 2022-11-15 16:48 | Discharge Inst-Post CATH ---
Discharge Inst-CATH/EP Post Cardiac Cath/EP D/C Inst Follow Up/Plan F/u with Dr Macedo in 3-4 weeks ACTIVITY * Go Home directly and rest. * Limit activity of the leg (or wrist if it was used) for 7 days including aerobics, swimming, jogging, bicycling, etc. * Restrict stair-climbing for 7 days if possible, if not, climb up with your non-cath leg, then bring together on the same step. * Avoid lifting, pushing, pulling or excessive movement of the affected extremity for 7 days. * Customary sexual activity may be resumed after 2 days-use caution not to use a position that strains or causes pain to the affected extremity. * No driving for 24 hours. * NO SMOKING. * Avoid straining for bowel movements for 7 days. * Gentle walking on level ground is allowed. * Returning to work will depend on the type of procedure and the results. Your doctor will discuss this with you. CALL YOUR DOCTOR FOR ANY OF THE FOLLOWING: *If bleeding from the puncture site occurs- Apply gentle pressure to site with clean cloth and call your doctor or EMS. * If a knot or lump forms under the skin, increases in size, or causes pain. * If bruising appears to be worsening or moving further down your leg instead of disappearing. * Temperature above 101 F. CARE OF YOUR GROIN INCISION; * Bruising or purple discoloration of the skin near the puncture site is common. * You may shower only, no bathtub bathing for 5 days. Be careful to avoid slipping as your leg may feel stiff. * If a closure device was used on your femoral artery, please see the attached guide regarding care of the device and your leg. * Leave dressing on FOR 24 hours. CARE OF YOUR WRIST INCISION; * Bruising or purple discoloration of the skin near the puncture site is common. * You may shower. * DO NOT submerge wrist. * Leave dressing on FOR 24 hours. AMARI MACEDO MD [facility] Nov 15, 2022 16:48
--- NOTE | 2022-11-15 16:48 | Discharge Inst-Cardiology ---
Discharge Inst-Cardiac Discharge Medications Continued Medications: Amlodipine Besylate (Amlodipine Besylate) 5 Mg Tablet 5 MG PO DAILY, TAB Apixaban (Eliquis) 5 Mg Tablet 5 MG PO BID, TAB Aspirin (Aspirin) 325 Mg Tablet 325 MG PO DAILY, TAB Atorvastatin Calcium (Atorvastatin Calcium) 20 Mg Tablet 20 MG PO DAILY, TAB Cholecalciferol (Vitamin D3) (Vitamin D3) 25 Mcg Capsule 25 MCG PO DAILY, CAP Diltiazem HCl (Diltiazem 24Hr ER) 240 Mg Cap.er.24h 240 MG PO HS, CAP Lisinopril (Lisinopril) 40 Mg Tablet 40 MG PO DAILY, TAB Losartan Potassium (Losartan Potassium) 100 Mg Tablet 100 MG PO DAILY, TAB Metoprolol Succinate (Metoprolol Succinate) 100 Mg Tab.er.24h 100 MG PO DAILY, TAB Minoxidil (Minoxidil) 10 Mg Tab 10 MG PO BID, TAB AMARI FOSTER MD FACP [facility]S Nov 15, 2022 16:48
[2022-11-15] MEDS ORDERED: NS IV 1000 ML 1,000 ML IV SCH (17:00)
[2022-11-15] MEDS ORDERED: PATIENT MAY USE OWN MEDS, ALL PO SCH (17:00)
== END 2022-11-15 18:10 | disposition home or self-care (01) ==
LOC: CATH 10:54
PROVIDERS: ATTEND Internal Medicine Cardiovascular Disease
DX: I25.10 Atherosclerotic heart disease of native coronary artery without angina pectoris (principal); I48.0 Paroxysmal atrial fibrillation; I73.9 Peripheral vascular disease, unspecified; I10 Essential (primary) hypertension; I87.2 Venous insufficiency (chronic) (peripheral); I65.23 Occlusion and stenosis of bilateral carotid arteries; R29.898 Other symptoms and signs involving the musculoskeletal system; D15.1 Benign neoplasm of heart; R22.43 Localized swelling, mass and lump, lower limb, bilateral; E78.2 Mixed hyperlipidemia; E87.6 Hypokalemia; Z28.310 Unvaccinated for COVID-19; Z87.891 Personal history of nicotine dependence; Z95.1 Presence of aortocoronary bypass graft; Z79.01 Long term (current) use of anticoagulants; Z86.79 Personal history of other diseases of the circulatory system; Z98.890 Other specified postprocedural states; Z79.899 Other long term (current) drug therapy; Z98.62 Peripheral vascular angioplasty status
CPT/HCPCS: 80053; 80061; 85027; 85610; 85730; 87081; 93005; 93459; 93567; C1769; C1894; 36415

== ENCOUNTER → 2022-11-18 | Outpatient (CLI) | payer MEDICARE ==
[~2022-11-18] MED LIST changes: +ASPI-808 PO; +LISI40TA9 PO; +LOSA100T58 PO
--- NOTE | 2022-11-18 09:21 | Diagnostic Imaging Report ---
PROCEDURE: US left lower extremity venous. TECHNIQUE: Multiple Real-time grayscale images were obtained over the left lower extremity in various projections. Additional duplex Doppler and color Doppler images were also obtained. INDICATION: Left leg swelling. FINDINGS: There is no evidence of left lower extremity DVT. Left lower extremity deep venous system shows normal compressibility with normal response to augmentation and Valsalva. No fluid collection is seen. There is a mass in the popliteal fossa measuring 6.9 x 5.6 x 5.3 cm. No internal vascularity is seen but this does show significant internal complexity. It is uncertain if this represents a solid mass versus a complex cystic mass. MRI with and without IV contrast would be recommended for further evaluation. IMPRESSION: 1. No evidence of left lower extremity DVT. 2. Complex cystic versus solid mass in the popliteal fossa. MRI with and without IV contrast could be performed for better characterization. Dictated by: Dictated on workstation # [id number]
== END ==
LOC: RAD 07:37
PROVIDERS: ATTEND Internal Medicine Cardiovascular Disease
DX: R22.42 Localized swelling, mass and lump, left lower limb (principal); M79.89 Other specified soft tissue disorders

== ENCOUNTER → 2022-11-30 | Outpatient (CLI) | payer MEDICARE ==
[~2022-11-30] MED LIST changes: +HOLD METFORMIN - RECEIVED CONTRAST 20 ML VIAL IV SCH; +IOHEXOL 350 MG/ML 100 ML (OMNIPAQUE 350) VIAL IV ONE; +NS 100 ML (IVPB) BAG IV ONE
--- NOTE | 2022-11-30 11:12 | Diagnostic Imaging Report ---
PROCEDURE: CT chest with contrast only. TECHNIQUE: Multiple contiguous axial images were obtained through the chest after administration of intravenous contrast. Auto Exposure Controls were utilized during the CT exam to meet ALARA standards for radiation dose reduction. INDICATION: Myxoma, shortness of air. COMPARISON: Radiograph dated 05/22/2021. FINDINGS: Post surgical changes of CABG. Patent aneurysmal dilatation of one of the bypass grafts involving the right coronary artery is noted measuring up to 2.6 cm. Tortuosity of the descending thoracic aorta which is associated with aneurysmal dilatation of the inferior aspect of the descending thoracic aorta measuring up to 5.1 cm. The heart is enlarged. No significant pericardial effusion. Small hiatal hernia. No significant adenopathy within the chest. No pleural effusion. The trachea is patent. No pneumothorax. Mild right basilar scarring and/atelectasis. The visualized upper abdomen is unremarkable. Scattered osseous degenerative changes. Disc/osteophyte complex is noted at T9/T10 with resulting moderate to severe central canal stenosis. IMPRESSION: Aneurysmal dilatation of a bypass right coronary artery measuring up to 2.6 cm appearing patent. Aneurysmal dilatation of the inferior aspect of the descending thoracic aorta measuring up to 5.1 cm. Disc/osteophyte complex at T9/T10 with resulting at least moderate to severe central canal stenosis. This could be further evaluated with an MRI of the thoracic spine. Small hiatal hernia. Cardiomegaly. Dictated by: Dictated on workstation # [id number]
== END ==
LOC: RAD 08:42
PROVIDERS: ATTEND Thoracic Surgery (Cardiothoracic Vascular Surgery)
DX: I25.41 Coronary artery aneurysm (principal); I71.23 Aneurysm of the descending thoracic aorta, without rupture; K44.9 Diaphragmatic hernia without obstruction or gangrene; I51.7 Cardiomegaly; D21.9 Benign neoplasm of connective and other soft tissue, unspecified
CPT/HCPCS: 71260

== ENCOUNTER → 2022-12-16 | Outpatient (CLI) | payer MEDICARE ==
--- NOTE | 2022-12-16 13:24 | Diagnostic Imaging Report ---
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 COMPARISON: None. TECHNIQUE: Axial CT angiogram of the left lower extremity, centered about the knee was performed following intravenous administration of contrast with sagittal and coronal MIP reformats. FINDINGS: No acute fracture is seen in the left knee. There is severe degenerative change in the lateral compartment and recbobxl-nx-aowioe degenerative change in the medial compartment. There are moderate degenerative changes in the patellofemoral compartment. There is a moderate left knee joint effusion. There is marked chondrocalcinosis. There is atherosclerosis of the popliteal artery which does not cause high-grade stenosis. There is extrinsic compression on the popliteal artery causing about 50% narrowing. There is mild tortuosity of the distal popliteal artery, with a tiny 5 mm eccentric aneurysm (Image 48, series 701). There is occlusion of the left anterior tibial artery just beyond the trifurcation. There is mild generalized muscular atrophy. There is a large mildly heterogeneous mass posterior to the knee and distal femur, which measures 6.3 x 5.8 cm on axial imaging and up to 9.2 cm craniocaudal. This does appear to be confluent with the Ferrell's cyst. There is moderate extrinsic compression of the popliteal artery, and there does appear to be significant compression on the popliteal veins. IMPRESSION: 1. Large mildly heterogeneous mass at the posterior distal left thigh, causing mass effect on the popliteal artery and veins. 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 2. Severe degenerative changes in the left knee with marked chondrocalcinosis. 3. Occlusion of the proximal left anterior tibial artery. 4. 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 5. Moderate left knee joint effusion. Dictated by: Dictated on workstation # [id number]
== END ==
LOC: RAD 09:45
PROVIDERS: ATTEND Internal Medicine
DX: I72.4 Aneurysm of artery of lower extremity (principal); M71.22 Synovial cyst of popliteal space [Baker], left knee; M17.12 Unilateral primary osteoarthritis, left knee; I70.8 Atherosclerosis of other arteries; M25.462 Effusion, left knee
CPT/HCPCS: 73706